=== PATIENT | male | born 1950 ===

== ENCOUNTER 2017-01-06 13:29 | Emergency (ER) | payer MEDICARE ==
[2017-01-06 13:32] VITALS: BP 135/85; PULSE 86; RESP 18; TEMP 98.4; O2SAT 99
== END 2017-01-06 13:38 | disposition left against medical advice (07) ==
LOC: C.ER 13:29
DX: R03.0 Elevated blood-pressure reading, without diagnosis of hypertension (principal); Z02.9 Encounter for administrative examinations, unspecified

== ENCOUNTER 2017-06-13 07:55 | Inpatient (IN) | payer MEDICARE ==
--- NOTE | 2017-06-13 08:30 | C.PDOC ---
History Of Present Illness 66-YEAR-OLD MALE, PRESENTS TO THE EMERGENCY DEPARTMENT WITH COMPLAINTS OF worsening R FOOT PAIN, REDNESS X 3 WEEKS. DENIES TRAUMA. NEW ONSET PAIN YEST. INTERMIT SUBJ FEVER. NO PRIOR PMD, PODIATRY EVAL FOR SAME. NO ABX FOR CURRENT SX EXAM NAD SKIN +BLISTER CALLUS, CLOSED W UNDERLYING BLOOD ?PURULENT BENEATH. +CELLULITIS DORSAL R FOOT W LYMPHANGITIS ANT R CALF. NO FLUCTUANCE EXT R FOOT MIN EDEMA NONPITTING TOP. NONTEND +CAP REFILL REMAINDER NEG Time Seen by Provider: 06/13/17 08:18 Chief Complaint (Nursing): Abnormal Skin Integrity History Per: Patient History/Exam Limitations: no limitations Past Medical History Reviewed: Historical Data, Nursing Documentation, Vital Signs Vital Signs: Last Vital Signs Temp 97.9 F 06/13/17 08:03 Pulse 80 06/13/17 08:03 Resp 18 06/13/17 08:03 BP 166/101 H 06/13/17 08:03 Pulse Ox 99 06/13/17 09:34 - Medical History PMH: CAD, Diabetes, HTN, Hypercholesterolemia - [facility] TETANUS TOXOID ADMINIST (06/06/13) Family History: States: No Known Family Hx - Social History Hx Tobacco Use: No Hx Alcohol Use: No Hx Substance Use: No - Immunization History Hx Tetanus Toxoid Vaccination: No Hx Influenza Vaccination: No Hx Pneumococcal Vaccination: No Review Of Systems Except As Marked, All Systems Reviewed And Found Negative. Constitutional: Positive for: Fever Respiratory: Negative for: Cough, Shortness of Breath Musculoskeletal: Positive for: Foot Pain (REDNESS) Skin: Negative for: Rash Physical Exam - Physical Exam Appears: Non-toxic, No Acute Distress Skin: Other (+BLISTER CALLUS, CLOSED W UNDERLYING BLOOD ?PURULENT BENEATH. + CELLULITIS DORSAL R FOOT W LYMPHANGITIS ANT R CALF. NO FLUCTUANCE) Nose: Normal Oral Mucosa: Moist Lips: Normal Appearing Neck: Normal ROM Cardiovascular: Rhythm Regular, No Murmur Respiratory: Normal Breath Sounds, No Accessory Muscle Use Extremity: Capillary Refill, Other (R FOOT MIN EDEMA NONPITTING TOP. NONTEND) Neurological/Psych: Oriented x3 ED Course And Treatment - Laboratory Results Result Diagrams: 06/13/17 08:54 06/13/17 08:54 O2 Sat by Pulse Oximetry: 99 Pulse Ox Interpretation: Normal - Other Rad R FOOT X-Ray: Interpreted by Me (+FA FOREFOOT. NO FX, FB) Progress - Re-Evaluation Re-evaluation Note: 06/13/17 08:32 D/W DR ANGUIANO PODIATRY RESIDENT: WILL EVAL IN ER 06/13/17 10:46 SP I&D PODIATRY +PURULENT OUTPUT. CX SENT. RECOMMENDS VANCOMYCIN, ZOSYN AND ADMIT. PT AGREES W ADMISSION. DR SANCHEZ PODIATRY TO CONSULT. 06/13/17 10:52 D/W DR MATHIAS C/F DR LINDO WILL ADMIT - Data Reviewed Data Reviewed: Lab, Diagnostic imaging, EKG, Old records - Continuity of Care Discussed patient case with:: Covering for PMD Discussed pt. case with showroom consultant/specialty: Podiatry Disposition Counseled Patient/Family Regarding: Studies Performed, Diagnosis, Need For Followup - Disposition Disposition: HOSPITALIZED Disposition Time: 10:53 Condition: SERIOUS Forms: [facility] (Persian) - POA Present On Arrival: Poor Glycemic Control - Clinical Impression Clinical Impression: Foot ulcer due to secondary DM, Foot abscess, Cellulitis - Scribe Statement Alexander Pearl All medical record entries made by the Scribe were at my direction and personally dictated by me. I have reviewed the chart and agree that the record accurately reflects my personal performance of the history, physical exam, medical decision making, and the department course for this patient. I have also personally directed, reviewed, and agree with the discharge instructions and disposition. Decision To Admit - Pt Status Changed To: Hospital Disposition Of: Inpatient - Admit Certification Admit to Inpatient:: After my assessment, the patient will require hospitalization for at least two midnights. This is because of the severity of symptoms shown, intensity of services needed, and/or the medical risk in this patient being treated as an outpatient. - InPatient: Physician Admission Certification: I certify that this patient requires 2 or more midnights of care for the following reason:: SEE NOTE - . Bed Request Type: Regular Admitting Physician: Richy Linder Patient Diagnosis: Foot ulcer due to secondary DM, Foot abscess, Cellulitis
[2017-06-13] MEDS ORDERED: ceFAZolin IV 1 gm in Dextrose 1 GM/50 ML BAG IVPB STA (08:39)
[2017-06-13 08:56] LABS: BASO # 0.1 K/uL (0.0-0.2); BASO % 0.7 % (0.0-2.0); EOS # 0.1 K/uL (0.0-0.7); EOS % 1.1 % (0.0-4.0); HEMATOCRIT 39.9 % (35.0-51.0); LYMPH # 2.2 K/uL (1.0-4.3); LYMPH % 20.4 % (20.0-40.0); MEAN CORPUSCULAR HGB CONC 34.1 g/dL (33.0-37.0); MEAN PLATELET VOLUME 9.2 fL (7.2-11.7); MONO # 1.2 K/uL (0.0-0.8); MONO % 11.4 % (0.0-10.0); RED CELL DISTRIBUTION WIDTH 13.5 % (11.5-14.5); WHITE BLOOD COUNT 10.5 K/uL (4.8-10.8)
[2017-06-13 08:58] LABS: MEAN CELL VOLUME 90.9 fL (80.0-94.0)
[2017-06-13] MEDS ORDERED: ceFAZolin 1 gm FROZEN Premix 1 GM/50 ML ML IVPB ONE (09:04)
[2017-06-13 09:06] LABS: CHLORIDE 102 mmol/L (98-107); POTASSIUM 4.4 mmol/L (3.6-5.2); SODIUM 138 mmol/L (132-148)
[2017-06-13 09:09] LABS: BLOOD UREA NITROGEN 14 mg/dL (9-20); CARBON DIOXIDE 25 mmol/L (22-30); GFR AFRICAN-AMERICAN > 60
[2017-06-13 09:10] LABS: CALCIUM 8.6 mg/dl (8.6-10.4); GLUCOSE,RANDOM 159 mg/dL (75-110)
[2017-06-13] MEDS ORDERED: Bacitracin 500 Units/gm Oint Foilpak UD ONE ×2 (10:51)
[2017-06-13] MEDS ORDERED: Piperacillin/Tazobact 3.375 gm 100 ML IV STA (10:53)
--- NOTE | 2017-06-13 11:07 | CP.PCM.CON ---
History of Present Illness - History of Present Illness History of Present Illness: 66 y/o male with PMHx of DM, HTN, Hypercholestrolemia seen at bedside in ED for right plantar foot redness, and swelling. Patient states that he has had a blister on the bottom of his foot for 3 weeks now but just yesterday he noticed redness and swelling getting worst. Patient also agrees to having a little pain to the right foot. Patient states that he has been having fevers on and off for the past week. Patient denies of any recent N/V/SOB/CP today. Patient states that he feels numbness in the bottom of his foot and at times feels as if his feet are asleep. Patient agrees to having tingling and burning in his feet every now and then. Patient denies of having a lease attendant. Patient states that he has not seen his PCP doctor about 2 months ago but does not see him often. Patient denies of any other pedal complains at this time. PMHx: DM, HTN, Hypercholestrolemia PSHx: Heart surgery Allergies: N.K.D.A SHx: Denies smoking, EtOH intake or illicit drug usage Review of Systems - Cardiovascular Cardiovascular: As Per HPI Past Patient History - Infectious Disease Hx of Infectious Diseases: None - Past Social History Smoking Status: Never Smoked - CARDIAC Hx Hypercholesterolemia: Yes Hx Hypertension: Yes - ENDOCRINE/METABOLIC Hx Endocrine Disorders: Yes Hx Diabetes Mellitus Type 1: Yes - PSYCHIATRIC Hx Substance Use: No - SURGICAL HISTORY Hx Surgeries: Yes Hx Cardiac Catheterization: Yes - ANESTHESIA Hx Anesthesia: Yes Hx Anesthesia Reactions: No Hx Malignant Hyperthermia: No Meds Allergies/Adverse Reactions: Allergies Allergy/AdvReac Type Severity Reaction Status Date / Time No Known Allergies Allergy Verified 01/06/17 13:34 - Medications Medications: Current Medications Piperacillin Sod/Tazobactam Sod (Zosyn 3.375 In Ns 100ml) 100 mls @ 200 mls/hr IV STAT STA Stop: 06/13/17 11:22 Vancomycin HCl (Vancomycin 1gm In Normal Saline Addvantage) 250 mls @ 166.667 mls/hr IV STAT MATT Physical Exam - Constitutional Appears: Well, Non-toxic, No Acute Distress - Extremities Exam Additional comments: Bilateral LE exam: VASC: DP/PT pulses are intact 2/4 bilaterally, Cap Refill time: < 3 sec to all digits, Temp gradient: warm to cool on the left and warm to warm on the right from proximal to distal, minimal non-pitting edema noted on the right foot DERM: roofed hematogenous bullae extending proximal to 1st interspace to midfoot level with hyperkeratotic lesion in the center, surrounding erythema noted on the planter medial aspect of the foot extending along the course of the TA tendon to the distal 1/3rd of the leg, mild fluctuance noted on the bullae site, no open lesions, no active drainage, no malodor NEURO: Protective sensation grossly diminished ORTHO: minimal tenderness on palpation of the plantar bullae on the right foot - Neurological Exam Neurological exam: Alert, Oriented x3 - Psychiatric Exam Psychiatric exam: Normal Affect, Normal Mood Results - Vital Signs Recent Vital Signs: Last Vital Signs Temp 97.9 F 06/13/17 08:03 Pulse 80 06/13/17 08:03 Resp 18 06/13/17 08:03 BP 166/101 H 06/13/17 08:03 Pulse Ox 99 06/13/17 10:53 - Labs Result Diagrams: 06/13/17 08:54 06/13/17 08:54 Labs: Laboratory Results - last 24 hr 06/13/17 06/13/17 08:54 08:54 WBC 10.5 RBC 4.39 L Hgb 13.6 Hct 39.9 MCV 90.9 D MCH 31.0 MCHC 34.1 RDW 13.5 Plt Count 172 MPV 9.2 Neut % (Auto) 66.4 Lymph % (Auto) 20.4 Woodruff % (Auto) 11.4 H Eos % (Auto) 1.1 Baso % (Auto) 0.7 Neut # 7.0 Lymph # 2.2 Woodruff # 1.2 H Eos # 0.1 Baso # 0.1 Sodium 138 Potassium 4.4 Chloride 102 Carbon Dioxide 25 Anion Gap 16 BUN 14 Creatinine 0.8 Est GFR ( Amer) > 60 Est GFR (Non-Af Amer) > 60 Random Glucose 159 H Calcium 8.6 Assessment & Plan - Assessment and Plan (Free Text) Assessment: 66 y/o male seen at bedside in ED for 1). de-roofed plantar ulcer nava grade 1 2). cellulitis extending proximally on the right leg Plan: Patient seen and evaluated at bedside in ED Patient discussed in details with attending Dr. Cassidy Labs and vitals reviewed (afebrile, WBC @ 10.5) X-rays ordered/reviewed: -diffuse radiolucency noted in plantar soft tissue at the ball of the right foot indicating soft tissue emphysema, no shannan abnormalities noted, joint appear to be in proper alignment Bedside I&D performed: - approximately 7cc of purulent/sanguineous drainage noted from the bullae site, malodor appreciated during this procedure Patient tolerated the procedure well Superficial cultures and after the debridement, deep cultures taken Patient received 1 gm of ancef while in the ED Patient to be admitted for IV abx - patient currently placed on vanc/zosyn The plan discussed with the ED attending Patient educated to the importance of staying in the hospital to receive IV antibiotics Patient and his demonstrated verbal understanding Thank you for the podiatry consult and letting us take part in patient care Podiatry will follow patient while-in house - Date & Time Date: 06/13/17 Time: 11:25
[2017-06-13] MEDS ORDERED: Piperacillin/Tazobact 3.375 GM in Sodium Chloride 100 ML IVPB SCH (11:15)
[2017-06-13] MEDS ORDERED: Vancomycin 1 GM 1 GM/250 ML BAG IVPB ONE (11:17)
[2017-06-13] MEDS ORDERED: Piperacillin/Tazobact 3.375 gm 100 ML IVPB ONE (11:17)
[2017-06-13] MEDS: (Novolin R) Insulin Human Regular 100 units/ml vial SC SCH ×4 (11:59→22:15)
[2017-06-13] MEDS ORDERED: Vancomycin 1 GM 1 GM/250 ML BAG IV ONE (12:00)
[2017-06-13] MEDS ORDERED: (Novolin R) Insulin Human Regular 100 units/ml vial ONE (12:20)
[2017-06-13] MEDS: Piperacillin/Tazobact 3.375 GM in Sodium Chloride 100 ML IVPB SCH ×4 (13:59→22:35)
--- NOTE | 2017-06-13 14:46 | CP.PCM.CON ---
History of Present Illness - History of Present Illness History of Present Illness: 66 y/o male with PMHx of DM, HTN, Hypercholestrolemia seen at bedside in ED for right plantar foot redness, and swelling. Patient states that he has had a blister on the bottom of his foot for 3 weeks now but just yesterday he noticed redness and swelling getting worst. Patient also agrees to having a little pain to the right foot. Patient states that he has been having fevers on and off for the past week. DID NOT SEE PCP ADMITTED FOR IV RX AWAIT MRI X-rays ordered/reviewed: -diffuse radiolucency noted in plantar soft tissue at the ball of the right foot indicating soft tissue emphysema, no shannan abnormalities noted, joint appear to be in proper alignment PMHx: DM, HTN, Hypercholestrolemia PSHx: Heart surgery Allergies: N.K.D.A SHx: Denies smoking, EtOH intake or illicit drug usage Review of Systems - Constitutional Constitutional: As Per HPI - EENT Eyes: absent: As Per HPI, Blind Spots, Blurred Vision, Change in Vision, Decreased Night Vision, Diplopia, Discharge, Dry Eye, Exophthalmos, Floaters, Irritation, Itchy Eyes, Loss of Peripheral Vision, Pain, Photophobia, Requires Corrective Lenses, Sees Flashes, Spots in Vision, Tunnel Vision, Other Visual Disturbances, Loss of Vision, Other Nose/Mouth/Throat: absent: As Per HPI, Epistaxis, Nasal Congestion, Nasal Discharge, Nasal Obstruction, Nasal Trauma, Nose Pain, Post Nasal Drip, Sinus Pain, Sinus Pressure, Bleeding Gums, Change in Voice, Dental Pain, Dry Mouth, Dysphagia, Halitosis, Hoarsness, Lip Swelling, Mouth Lesions, Mouth Pain, Odynophagia, Sore Throat, Throat Swelling, Tongue Swelling, Facial Pain, Neck Pain, Neck Mass, Other - Cardiovascular Cardiovascular: absent: As Per HPI, Acrocyanosis, Chest Pain, Chest Pain at Rest , Chest Pain with Activity, Claudication, Diaphoresis, Dyspnea, Dyspnea on Exertion, Edema, Irregular Heart Rhythm, Pain Radiating to Arm/Neck/Jaw, Leg Edema, Leg Ulcers, Lightheadedness, Orthopnea, Palpitations, Paroxysmal Nocturnal Dyspnea, Pedal Edema, Radiating Pain, Rapid Heart Rate, Slow Heart Rate, Syncope, Other - Respiratory Respiratory: absent: As Per HPI, Cough, Dyspnea, Hemoptysis, Dyspnea on Exertion , Wheezing, Snoring, Stridor, Pain on Inspiration, Chest Congestion, Excessive Mucous Production, Change in Mucous Color, Pain with Coughing, Other - Gastrointestinal Gastrointestinal: absent: As Per HPI, Abdominal Pain, Belching, Bloating, Change in Bowel Habits, Change in Stool Character, Coffee Ground Emesis, Constipation, Cramping, Diarrhea, Dyspepsia, Dysphagia, Early Satiety, Excessive Flatus, Fecal Incontinence, Heartburn, Hematemesis, Hematochezia, Loose Stools, Melena, Nausea, Odynophagia, Temesmus, Vomiting, Other - Genitourinary Genitourinary: absent: As Per HPI, Change in Urinary Stream, Difficulty Urinating, Dysuria, Flank Pain, Hematuria, Pyuria, Nocturia, Urinary Incontinence, Urinary Frequency, Urinary Hesitance, Urinary Urgency, Voiding Freq/Small Amts, Freq UTI, Hx Renal/Bladder Calculi, Hx /Renal Surgery, Bladder Distension, Other - Musculoskeletal Musculoskeletal: As Per HPI - Integumentary Integumentary: As Per HPI, Skin Pain, Wounds - Neurological Neurological: absent: As Per HPI, Abnormal Gait, Abnormal Hearing, Abnormal Movements, Abnormal Speech, Behavioral Changes, Burning Sensations, Confusion, Convulsions, Disequilibrium, Dizziness, Numbness, Focal Weakness, Frequent Falls , Headaches, Lack of Coordination, Loss of Vision, Memory Loss, Paresthesias, Radicular Pain, Restless Legs, Sensory Deficit, Syncope, Tingling, Tremor, Vertigo, Weakness, Other Visual Disturbances, Other - Psychiatric Psychiatric: absent: As Per HPI, Abnormal Sleep Pattern, Anhedonia, Anxiety, Auditory Hallucinations, Behavioral Changes, Change in Appetite, Change in Libido, Confusion, Depression, Difficulty Concentrating, Hallucinations, Homicidal Ideation, Hopelessness, Irritability, Memory Loss, Mood Swings, Panic Attacks, Paranoia, Suicidal Ideation, Visual Hallucinations, Tactile Hallucinations, Other - Endocrine Endocrine: absent: As Per HPI, Change in Body Appearance, Change in Libido, Cold Intolorance, Deepening of Voice, Excessive Sweating, Fatigue, Flushing, Heat Intolorance, Increase in Ring/Shoe/Hat Size, Palpitations, Polydipsia, Polyphagia, Polyuria, Other - Hematologic/Lymphatic Hematologic: absent: As Per HPI, Easy Bleeding, Easy Bruising, Lymphadenopathy, Other Past Patient History - Infectious Disease Hx of Infectious Diseases: None - Past Social History Smoking Status: Never Smoked - CARDIAC Hx Hypercholesterolemia: Yes Hx Hypertension: Yes - ENDOCRINE/METABOLIC Hx Endocrine Disorders: Yes Hx Diabetes Mellitus Type 1: Yes - PSYCHIATRIC Hx Substance Use: No - SURGICAL HISTORY Hx Surgeries: Yes Hx Cardiac Catheterization: Yes - ANESTHESIA Hx Anesthesia: Yes Hx Anesthesia Reactions: No Hx Malignant Hyperthermia: No Meds Allergies/Adverse Reactions: Allergies Allergy/AdvReac Type Severity Reaction Status Date / Time No Known Allergies Allergy Verified 01/06/17 13:34 - Medications Medications: Current Medications Ascorbic Acid (Vitamin C 500 Mg Tab) 500 mg PO TID [facility] Last Admin: 06/13/17 14:20 Dose: 500 mg Famotidine (Pepcid) 20 mg IVP DAILY [facility] Vancomycin HCl 1 gm/ Sodium (Chloride) 250 mls @ 166.7 mls/hr IVPB DAILY [facility] Piperacillin Sod/Tazobactam (Sod 3.375 gm/ Sodium Chloride) 100 mls @ 200 mls/ hr IVPB Q8 [facility] Last Admin: 06/13/17 14:07 Dose: Not Given Piperacillin Sod/Tazobactam (Sod 3.375 gm/ Sodium Chloride) 100 mls @ 200 mls/ hr IVPB Q8 [facility] Last Admin: 06/13/17 13:59 Dose: Not Given Insulin Human Regular (Novolin R) 0 unit SC ACHS [facility] PRN Reason: Protocol Last Admin: 06/13/17 12:20 Dose: 2 unit Lisinopril (Zestril) 10 mg PO Q12 [facility] Sitagliptin Phosphate (Januvia) 50 mg PO DAILY [facility] Zinc Sulfate (Zinc Sulfate 220 Mg Cap) 220 mg PO DAILY [facility] Physical Exam - Constitutional Appears: Non-toxic, Chronically Ill - Head Exam Head Exam: NORMOCEPHALIC - Eye Exam Eye Exam: absent: Scleral icterus - ENT Exam ENT Exam: Mucous Membranes Dry, Normal External Ear Exam - Neck Exam Neck exam: Negative for: Lymphadenopathy - Respiratory Exam Respiratory Exam: Decreased Breath Sounds - Cardiovascular Exam Cardiovascular Exam: REGULAR RHYTHM - GI/Abdominal Exam GI & Abdominal Exam: Diminished Bowel Sounds, Soft. absent: Tenderness - Rectal Exam Rectal Exam: Deferred - Exam Exam: NORMAL INSPECTION - Extremities Exam Extremities exam: Positive for: pedal edema, tenderness, pedal pulses present. Negative for: calf tenderness - Back Exam Back exam: absent: CVA tenderness (L), CVA tenderness (R) - Neurological Exam Neurological exam: Alert, CN II-XII Intact, Oriented x3, Reflexes Normal - Psychiatric Exam Psychiatric exam: Normal Mood - Skin Skin Exam: Dry Results - Vital Signs Recent Vital Signs: Last Vital Signs Temp 98.8 F 06/13/17 12:39 Pulse 78 06/13/17 12:39 Resp 20 06/13/17 12:39 BP 135/86 06/13/17 12:39 Pulse Ox 97 06/13/17 12:39 - Labs Result Diagrams: 06/13/17 08:54 06/13/17 08:54 Labs: Laboratory Results - last 24 hr 06/13/17 12:11 POC Glucose (mg/dL) 230 H Assessment & Plan (1) Cellulitis Status: Acute (2) Foot abscess Status: Acute (3) Foot ulcer due to secondary DM Status: Acute - Assessment and Plan (Free Text) Assessment: CONSIDER MRI MAY NEED OR / DEBRIDEMENT AWAIT CULTURES
--- NOTE | 2017-06-13 15:12 | RAD ---
PROCEDURE: CHEST RADIOGRAPH, 1 VIEW HISTORY: SOB COMPARISON: 10/26/2014 FINDINGS: LUNGS: Clear. PLEURA: No pneumothorax or pleural fluid seen. CARDIOVASCULAR: No radiographic findings to suggest acute or significant cardiovascular disease. OSSEOUS STRUCTURES: No significant abnormalities. VISUALIZED UPPER ABDOMEN: Normal. OTHER FINDINGS: None. IMPRESSION: No active disease. No acute/significant interval changes. Concordant results with the preliminary interpretation rendered by the emergency department physician procedure.
--- NOTE | 2017-06-13 17:15 | RAD ---
PROCEDURE: Right Foot Radiographs. HISTORY: FOOT ULCER COMPARISON: None. FINDINGS: BONES: No fracture. Small osteochondroma of the 5th distal phalanx. No osseous erosion or periosteal reaction. JOINTS: Normal. SOFT TISSUES: Normal. OTHER FINDINGS: None. IMPRESSION: No plain radiographic evidence of osteomyelitis.
[2017-06-14] MEDS: Piperacillin/Tazobact 3.375 GM in Sodium Chloride 100 ML IVPB SCH ×3 (05:29→21:14)
[2017-06-14] MEDS: (Novolin R) Insulin Human Regular 100 units/ml vial SC SCH ×4 (08:02→21:15)
[2017-06-14] MEDS: Silver Sulfadiazine 1% Cream (20 gm) TOP SCH (09:19)
--- NOTE | 2017-06-14 12:31 | CP.PCM.PN ---
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 iv rx Objective - Vital Signs/Intake and Output Vital Signs (last 24 hours): Temp Pulse Resp BP Pulse Ox 99.1 F 83 20 162/91 H 96 06/14/17 08:00 06/14/17 08:00 06/14/17 08:00 06/14/17 08:00 06/14/17 08:00 Intake and Output: 06/14/17 06/14/17 06:59 18:59 Intake Total 340 Balance 340 - Medications Medications: Current Medications Ascorbic Acid (Vitamin C 500 Mg Tab) 500 mg PO TID [facility] Last Admin: 06/14/17 09:08 Dose: 500 mg Famotidine (Pepcid) 20 mg IVP DAILY [facility] Last Admin: 06/14/17 09:08 Dose: 20 mg Heparin Sodium (Porcine) (Heparin) 5,000 units SC Q12 [facility] Last Admin: 06/14/17 09:18 Dose: 5,000 units Vancomycin HCl 1 gm/ Sodium (Chloride) 250 mls @ 166.7 mls/hr IVPB DAILY [facility] Last Admin: 06/14/17 09:18 Dose: 166.7 mls/hr Piperacillin Sod/Tazobactam (Sod 3.375 gm/ Sodium Chloride) 100 mls @ 200 mls/ hr IVPB Q8 [facility] Last Admin: 06/14/17 05:29 Dose: 200 mls/hr Insulin Human Regular (Novolin R) 0 unit SC ACHS [facility] PRN Reason: Protocol Last Admin: 06/14/17 08:02 Dose: 1 unit Lisinopril (Zestril) 10 mg PO Q12 [facility] Last Admin: 06/14/17 09:07 Dose: 10 mg Pneumococcal Polyvalent Vaccine (Pneumovax 23 Vaccine) 0.5 ml IM .ONCE ONE Stop: 06/15/17 10:01 Silver Sulfadiazine (Silvadene 1% 20 Gm) 0.02 ea TOP QAM [facility] Last Admin: 06/14/17 09:19 Dose: 1 applic Sitagliptin Phosphate (Januvia) 50 mg PO DAILY [facility] Last Admin: 06/14/17 09:18 Dose: 50 mg Zinc Sulfate (Zinc Sulfate 220 Mg Cap) 220 mg PO DAILY [facility] Last Admin: 06/14/17 09:18 Dose: 220 mg - Constitutional Appears: Non-toxic, Chronically Ill - Head Exam Head Exam: NORMOCEPHALIC - Eye Exam Eye Exam: PERRL - ENT Exam ENT Exam: Mucous Membranes Dry - Neck Exam Neck Exam: absent: Lymphadenopathy - Respiratory Exam Respiratory Exam: Decreased Breath Sounds - Cardiovascular Exam Cardiovascular Exam: REGULAR RHYTHM - GI/Abdominal Exam GI & Abdominal Exam: Distended, Soft Assessment and Plan (1) Cellulitis Status: Acute (2) Foot abscess Status: Acute (3) Foot ulcer due to secondary DM Status: Acute
--- NOTE | 2017-06-14 13:19 | CP.PCM.PN ---
Subjective - Date & Time of Evaluation Date of Evaluation: 06/14/17 Time of Evaluation: 11:45 - Subjective Subjective: Podiatry Progress Note- Dr. Cassidy 66 yo diabetic male patient seen at bedside with Dr. Cassidy present for followup of right foot ulceration. Pt seen resting upright in bed at time of visit. Says he is feeling much better today. Denies any pain or discomfort to the right foot or leg at this time. Denies f/n/v/c/sob/cp. Denies any other complaints today. Objective - Vital Signs/Intake and Output Vital Signs (last 24 hours): Temp Pulse Resp BP Pulse Ox 99.1 F 83 20 162/91 H 96 06/14/17 08:00 06/14/17 08:00 06/14/17 08:00 06/14/17 08:00 06/14/17 08:00 Intake and Output: 06/14/17 06/14/17 06:59 18:59 Intake Total 340 Balance 340 - Medications Medications: Current Medications Ascorbic Acid (Vitamin C 500 Mg Tab) 500 mg PO TID [facility] Last Admin: 06/14/17 13:13 Dose: 500 mg Famotidine (Pepcid) 20 mg IVP DAILY [facility] Last Admin: 06/14/17 09:08 Dose: 20 mg Heparin Sodium (Porcine) (Heparin) 5,000 units SC Q12 [facility] Last Admin: 06/14/17 09:18 Dose: 5,000 units Vancomycin HCl 1 gm/ Sodium (Chloride) 250 mls @ 166.7 mls/hr IVPB DAILY [facility] Last Admin: 06/14/17 09:18 Dose: 166.7 mls/hr Piperacillin Sod/Tazobactam (Sod 3.375 gm/ Sodium Chloride) 100 mls @ 200 mls/ hr IVPB Q8 [facility] Last Admin: 06/14/17 13:13 Dose: 200 mls/hr Insulin Human Regular (Novolin R) 0 unit SC ACHS [facility] PRN Reason: Protocol Last Admin: 06/14/17 12:35 Dose: 4 unit Lisinopril (Zestril) 10 mg PO Q12 [facility] Last Admin: 06/14/17 09:07 Dose: 10 mg Pneumococcal Polyvalent Vaccine (Pneumovax 23 Vaccine) 0.5 ml IM .ONCE ONE Stop: 06/15/17 10:01 Silver Sulfadiazine (Silvadene 1% 20 Gm) 0.02 ea TOP QAM [facility] Last Admin: 06/14/17 09:19 Dose: 1 applic Sitagliptin Phosphate (Januvia) 50 mg PO DAILY [facility] Last Admin: 06/14/17 09:18 Dose: 50 mg Zinc Sulfate (Zinc Sulfate 220 Mg Cap) 220 mg PO DAILY [facility] Last Admin: 06/14/17 09:18 Dose: 220 mg - Constitutional Appears: Well, Non-toxic, No Acute Distress - Extremities Exam Extremities Exam: absent: Calf Tenderness Additional comments: Right lower extremity exam: Dressing to right foot appears c/d/i VASC: DP/PT pulses are intact 2/4, Cap Refill time: < 3 sec to all digits, skin temp runs warm to cool from proximal to distal, moderate non-pitting edema noted to dorsal aspect of foot DERM: superficial ulceration is noted to plantar aspect of right forefoot extending proximal to 1st interspace from midfoot, erythema has resolved, wound bed appears 100% granular, neg probe to bone, neg undermining, neg malodor NEURO: Protective sensation grossly diminished - Neurological Exam Neurological Exam: Alert, Awake, Oriented x3 - Psychiatric Exam Psychiatric exam: Normal Affect, Normal Mood Assessment and Plan - Assessment and Plan (Free Text) Assessment: 66 y/o male pt with ulceration of right plantar foot with resolved lower extremity cellulitis both 2/2 to diabetic foot infection. Plan: Pt S&E at bedside with attending Dr. Cassidy present Chart, labs and vitals reviewed: afebrile, WBC 10.5 Right foot wound cx: + beta hemolytic strep A (moderate growth) Right foot x-ray: diffuse radiolucency noted in plantar soft tissue at the ball of the right foot indicating soft tissue emphysema, small osteochondroma on 5th distal phalanx, no OM Right foot MRI ordered ID on consult (Dr. Apple): abx per ID Ulceration debrided with #15 blade to point of healthy bleeding, dressing applied with silvadene, DSD Pt is to wear surgical shoe at all times with weightbearing. Pt is stable from podiatry standpoint and clinically much improved on IV abx F/u as outpatient in [facility] Podiatry clinic with Dr. Cassidy. Will follow while in house
--- NOTE | 2017-06-14 19:58 | CP.PCM.HP ---
History of Present Illness - History of Present Illness History of Present Illness: Chief complaint: Right leg ulcer. History present illness: 66-year-old male with history diabetes, hypertension, diabetes is poorly controlled, came to the emergency room with the right leg ulcer. Patient had some foreign body injury to the right foot, 3 weeks ago. He started having some redness, and he was cleaning up with a alcohol in the house. He started having more swelling, and started having some pus. He did not have any pain much. But later he started having increasing pain over the leg, and also in the lower part of the ankle region. There was also redness noted. He started having some fever chills. Shortly came into the emergency room. Patient did not take any medications. His blood sugar is also not controlled well. Patient is being seen by Dr. 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 Past medical history: Diabetes, hypertension, hypercholesteremia, CAD. Allergy no known drug allergy. Personal history nonsmoker, nonalcoholic patient is currently working full-time Review of system noted from the chart. On examination: On examination: HEENT PERRLA, neck supple No thyromegaly was noted and no cervical adenopathy noted Chest bilateral good air entry, no wheezing or rales noted CVS regular heart sound, no murmur Abdomen soft and no organomegaly Peripheral pulses is normal. Patient is having in the base of the foot, especially middle toes base, skin abrasion noted, redness noted, and also present. Labs reviewed Elevated WBC noted Assessment and recommendation: 66-year-old male with history diabetes, hypertension, hypercholesteremia, admitted with right foot cellulitis, and also. Diabetic foot, most likely. Antibiotic advised. Podiatry evaluation he is disease evaluation. MRI. Further investigation. Will continue the current treatment. 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 oriented x3 no functional neurological deficit Present on Admission - Present on Admission Any Indicators Present on Admission: No History of DVT/PE: No History of Uncontrolled Diabetes: No Urinary Catheter: No Decubitus Ulcer Present: No Past Patient History - Infectious Disease Hx of Infectious Diseases: None - Past Medical History & Family History Past Medical History?: Yes - Past Social History Smoking Status: Never Smoked - CARDIAC Hx Cardiac Disorders: Yes (CARDIAC SURGERY) Hx Hypercholesterolemia: Yes Hx Hypertension: Yes - ENDOCRINE/METABOLIC Hx Diabetes Mellitus Type 1: Yes - MUSCULOSKELETAL/RHEUMATOLOGICAL Hx Falls: No - PSYCHIATRIC Hx Substance Use: No - SURGICAL HISTORY Hx Surgeries: Yes Hx Cardiac Catheterization: Yes - ANESTHESIA Hx Anesthesia: Yes Hx Anesthesia Reactions: No Hx Malignant Hyperthermia: No Meds Home Medications: Home Medication List Medication Instructions Recorded Confirmed Type Amoxicillin/Clavulanate [Augmentin 1 tab PO BID #20 tab 06/15/17 Rx 875 MG-125 MG] Allergies/Adverse Reactions: Allergies Allergy/AdvReac Type Severity Reaction Status Date / Time No Known Allergies Allergy Verified 01/06/17 13:34 Results - Vital Signs Recent Vital Signs: Last Vital Signs Temp 97.9 F 06/14/17 15:00 Pulse 80 06/14/17 15:00 Resp 20 06/14/17 15:00 BP 164/94 H 06/14/17 15:00 Pulse Ox 96 06/14/17 15:00 - Labs Result Diagrams: 06/13/17 08:54 06/13/17 08:54 Labs: Laboratory Results - last 24 hr 06/13/17 06/14/17 06/14/17 21:38 07:24 12:07 POC Glucose (mg/dL) 157 H 179 H 307 H 06/14/17 16:57 POC Glucose (mg/dL) 229 H
--- NOTE | 2017-06-14 19:58 | CP.PCM.PN ---
Subjective - Date & Time of Evaluation Date of Evaluation: 06/14/17 Time of Evaluation: 19:58 - Subjective Subjective: Patient is doing well. No chest pain. On antibiotic. Awaiting for MRI of the right foot. If there is no osteomyelitis the patient Discharge after the MRI. Will discuss with infectious disease. Continue the current treatment Objective - Vital Signs/Intake and Output Vital Signs (last 24 hours): Temp Pulse Resp BP Pulse Ox 97.9 F 80 20 164/94 H 96 06/14/17 15:00 06/14/17 15:00 06/14/17 15:00 06/14/17 15:00 06/14/17 15:00 - Medications Medications: Current Medications Ascorbic Acid (Vitamin C 500 Mg Tab) 500 mg PO TID [facility] Last Admin: 06/14/17 17:58 Dose: 500 mg Famotidine (Pepcid) 20 mg IVP DAILY [facility] Last Admin: 06/14/17 09:08 Dose: 20 mg Heparin Sodium (Porcine) (Heparin) 5,000 units SC Q12 [facility] Last Admin: 06/14/17 09:18 Dose: 5,000 units Vancomycin HCl 1 gm/ Sodium (Chloride) 250 mls @ 166.7 mls/hr IVPB DAILY [facility] Last Admin: 06/14/17 09:18 Dose: 166.7 mls/hr Piperacillin Sod/Tazobactam (Sod 3.375 gm/ Sodium Chloride) 100 mls @ 200 mls/ hr IVPB Q8 [facility] Last Admin: 06/14/17 13:13 Dose: 200 mls/hr Insulin Human Regular (Novolin R) 0 unit SC ACHS [facility] PRN Reason: Protocol Last Admin: 06/14/17 18:01 Dose: 2 unit Lisinopril (Zestril) 10 mg PO Q12 [facility] Last Admin: 06/14/17 09:07 Dose: 10 mg Pneumococcal Polyvalent Vaccine (Pneumovax 23 Vaccine) 0.5 ml IM .ONCE ONE Stop: 06/15/17 10:01 Silver Sulfadiazine (Silvadene 1% 20 Gm) 0.02 ea TOP QAM [facility] Last Admin: 06/14/17 09:19 Dose: 1 applic Sitagliptin Phosphate (Januvia) 50 mg PO DAILY [facility] Last Admin: 06/14/17 09:18 Dose: 50 mg Zinc Sulfate (Zinc Sulfate 220 Mg Cap) 220 mg PO DAILY [facility] Last Admin: 06/14/17 09:18 Dose: 220 mg
[2017-06-15 01:29] VITALS: O2SAT 95
[2017-06-15] MEDS: Piperacillin/Tazobact 3.375 GM in Sodium Chloride 100 ML IVPB SCH ×2 (05:34→13:42)
[2017-06-15] MEDS: (Novolin R) Insulin Human Regular 100 units/ml vial SC SCH ×2 (07:30→12:28)
[2017-06-15] MEDS: Silver Sulfadiazine 1% Cream (20 gm) TOP SCH (10:00)
[2017-06-15] MEDS ORDERED: Pneumococcal 23-Valent Vaccine IM ONE (10:00)
--- NOTE | 2017-06-15 12:46 | MRI ---
PROCEDURE: MRI Right Foot HISTORY: Pain. COMPARISON: None available. TECHNIQUE: Multiecho multiplanar sequences were performed through the right foot without the use of intravenous contrast. FINDINGS: BONES: No fracture. Normal marrow signal. MUSCLES: Normal. SOFT TISSUES: Normal. LISFRANC LIGAMENT: Normal. PLANTAR PLATE: Normal. EXTENSOR TENDONS: Normal. FLEXOR TENDONS: Normal. OTHER FINDINGS: Extensive subcutaneous edema is noted along the dorsum of the foot. IMPRESSION: Extensive subcutaneous edema along the dorsum of the foot without evidence of fracture. Findings could represent a cellulitis though soft tissue contusion is also considered in the setting of trauma.
--- NOTE | 2017-06-15 15:13 | CP.PCM.PN ---
Subjective - Date & Time of Evaluation Date of Evaluation: 06/15/17 Time of Evaluation: 12:30 - Subjective Subjective: Podiatry Progress Note- Dr. Cassidy 66 yo diabetic male patient seen at bedside today for f/u right foot ulceration. Pt seen resting upright in bed at time of visit. Says he is feeling well overall today, denies any pain or discomfort to the foot denies. Denies f/n /v/c/sob/cp at this time. Objective - Vital Signs/Intake and Output Vital Signs (last 24 hours): Temp Pulse Resp BP Pulse Ox 98.6 F 84 22 159/118 H 95 06/15/17 09:08 06/15/17 13:51 06/15/17 09:08 06/15/17 13:51 06/15/17 09:08 Intake and Output: 06/15/17 06/15/17 06:59 18:59 Intake Total 700 700 Balance 700 700 - Medications Medications: Current Medications Ascorbic Acid (Vitamin C 500 Mg Tab) 500 mg PO TID [facility] Last Admin: 06/15/17 13:42 Dose: 500 mg Famotidine (Pepcid) 20 mg IVP DAILY [facility] Last Admin: 06/15/17 09:57 Dose: 20 mg Heparin Sodium (Porcine) (Heparin) 5,000 units SC Q12 [facility] Last Admin: 06/15/17 09:56 Dose: 5,000 units Vancomycin HCl 1 gm/ Sodium (Chloride) 250 mls @ 166.7 mls/hr IVPB DAILY [facility] Last Admin: 06/15/17 09:57 Dose: 166.7 mls/hr Piperacillin Sod/Tazobactam (Sod 3.375 gm/ Sodium Chloride) 100 mls @ 200 mls/ hr IVPB Q8 [facility] Last Admin: 06/15/17 13:42 Dose: 200 mls/hr Insulin Human Regular (Novolin R) 0 unit SC ACHS [facility] PRN Reason: Protocol Last Admin: 06/15/17 12:28 Dose: 5 unit Lisinopril (Zestril) 10 mg PO Q12 [facility] Last Admin: 06/15/17 09:56 Dose: 10 mg Silver Sulfadiazine (Silvadene 1% 20 Gm) 0.02 ea TOP QAM [facility] Last Admin: 06/15/17 10:00 Dose: 1 applic Sitagliptin Phosphate (Januvia) 50 mg PO DAILY [facility] Last Admin: 06/15/17 09:56 Dose: 50 mg Zinc Sulfate (Zinc Sulfate 220 Mg Cap) 220 mg PO DAILY [facility] Last Admin: 06/15/17 09:56 Dose: 220 mg - Constitutional Appears: Well, Non-toxic, No Acute Distress - Extremities Exam Extremities Exam: absent: Calf Tenderness Additional comments: Right lower extremity exam: Dressing to right foot appears c/d/i VASC: DP/PT pulses are intact 2/4, Cap Refill time: < 3 sec to all digits, skin temp runs warm to cool from proximal to distal, moderate non-pitting edema noted to dorsal aspect of foot DERM: superficial ulceration is noted to plantar aspect of right forefoot extending proximal to 1st interspace from midfoot, erythema has resolved, wound bed appears 100% granular, neg probe to bone, neg undermining, neg malodor NEURO: Protective sensation grossly diminished - Neurological Exam Neurological Exam: Alert, Awake, Oriented x3 - Psychiatric Exam Psychiatric exam: Normal Affect, Normal Mood Assessment and Plan - Assessment and Plan (Free Text) Assessment: 66 y/o male pt with ulceration of right plantar foot with resolved lower extremity cellulitis both 2/2 to diabetic foot infection. Plan: Pt S&E at bedside with attending Dr. Cassidy present Chart, labs and vitals reviewed: afebrile Right foot wound cx: + beta hemolytic strep A (moderate growth) Right foot x-ray: diffuse radiolucency noted in plantar soft tissue at the ball of the right foot indicating soft tissue emphysema, small osteochondroma on 5th distal phalanx, no OM Right foot MRI: negative for OM Nursing reapplied dressing with silvadene and DSD. Pt is to wear surgical shoe at all times with weightbearing. Stable per podiatry. f/u [facility] Podiatry clinic w/ Dr. Cassidy
--- NOTE | 2017-06-15 15:19 | VASCLAB ---
STUDY DESCRIPTION: HISTORY: Peripheral Vascular Disease PRIORS: None. TECHNIQUE: Pulse volume recording waveforms and segmental pressures of bilateral lower extremities at multiple levels were obtained. Ankle Brachial Indices (ABIs) were calculated. Report prepared by CLAIR Cespedes, RVT RIGHT LOWER EXTREMITY: * Brachial artery: Pressure - 164 mmHg. * High thigh: Pressure - 199 mmHg: Ratio - 1.21: PVR waveform - Pulsatile * Low thigh: Pressure - 216 mmHg: Ratio - 1.32 PVR waveform: Pulsatile * Calf: Pressure - 220 mmHg: Ratio - n/c PVR waveform: Pulsatile * Posterior tibial Artery: Pressure - 209 mmHg: Ratio - 1.27 PVR waveform: Pulsatile * Dorsalis pedis Artery: Pressure - 217 mmHg: Ratio - 1.32 PVR waveform: Pulsatile Ankle brachial index (AKIKO): 1.32 LEFT LOWER EXTREMITY: * Brachial artery: Pressure - 159 mmHg. * High thigh: Pressure - 213 mmHg: Ratio - 1.30: PVR waveform - Pulsatile * Low thigh: Pressure - 201 mmHg: Ratio - 1.23 PVR waveform: Pulsatile * Calf: Pressure - 214mmHg: Ratio - 1.30 PVR waveform: Pulsatile * Posterior tibial Artery: Pressure - 197 mmHg: Ratio - 1.20 PVR waveform: Pulsatile * Dorsalis pedis Artery: Pressure - 198 mmHg: Ratio - 1.21 PVR waveform: Pulsatile Ankle brachial index (AKIKO): 1.21 OTHER FINDINGS: IMPRESSION: Right: There was no evidence of hemodynamically significant arterial insufficiency in the right lower extremity. Left: There was no evidence of hemodynamically significant arterial insufficiency in the left lower extremity.
[2017-06-15 17:04] VITALS: BP 151/87; PULSE 72; RESP 20; TEMP 98.9
--- NOTE | 2017-06-15 17:33 | CP.PCM.PN ---
Subjective - Date & Time of Evaluation Date of Evaluation: 06/15/17 Time of Evaluation: 17:29 - Subjective Subjective: MRI NEG FOR OM. WOUND CX + FOR STREP AND CORYNE (SEE OFFICIAL REPORT); NO SENSITIVITIES WERE ORDERED WHEN THE CULTURE WAS COLLECTED. I DISCUSSED WITH DR. OLIVEIRA AND HE CLEARED PT TO GO HOME TODAY W RX FOR AUGMENTIN BID X10 DAYS. LEFT MESSAGE FOR DR. PRESCOTT REGARDING D/C. PT CLEARED FOR D/C HOME TODAY BY PODIATRY TEAM. RX AND ARRANGEMENTS MADE FOR HOME WOUND CARE AND VNA SERVICES GIVEN TO [facility]. PT TO F/U WITH DR. SANCHEZ AND DR. PRESCOTT OR PMD IN OFFICES WITHIN 1-2 WEEKS. PT IS EAGER TO BE D/C TODAY. VERBAL UNDERSTANDING OF ALL D/C INFORMATION AND RX. NO FURTHER ORDERS. Objective - Vital Signs/Intake and Output Vital Signs (last 24 hours): Temp Pulse Resp BP Pulse Ox 98.9 F 72 20 151/87 H 95 06/15/17 16:00 06/15/17 16:00 06/15/17 16:00 06/15/17 16:00 06/15/17 16:00 Intake and Output: 06/15/17 06/15/17 06:59 18:59 Intake Total 700 700 Balance 700 700 - Medications Medications: Current Medications Ascorbic Acid (Vitamin C 500 Mg Tab) 500 mg PO TID [facility] Last Admin: 06/15/17 13:42 Dose: 500 mg Famotidine (Pepcid) 20 mg IVP DAILY [facility] Last Admin: 06/15/17 09:57 Dose: 20 mg Heparin Sodium (Porcine) (Heparin) 5,000 units SC Q12 [facility] Last Admin: 06/15/17 09:56 Dose: 5,000 units Vancomycin HCl 1 gm/ Sodium (Chloride) 250 mls @ 166.7 mls/hr IVPB DAILY [facility] Last Admin: 06/15/17 09:57 Dose: 166.7 mls/hr Piperacillin Sod/Tazobactam (Sod 3.375 gm/ Sodium Chloride) 100 mls @ 200 mls/ hr IVPB Q8 [facility] Last Admin: 06/15/17 13:42 Dose: 200 mls/hr Insulin Human Regular (Novolin R) 0 unit SC ACHS [facility] PRN Reason: Protocol Last Admin: 06/15/17 12:28 Dose: 5 unit Lisinopril (Zestril) 10 mg PO Q12 [facility] Last Admin: 06/15/17 09:56 Dose: 10 mg Silver Sulfadiazine (Silvadene 1% 20 Gm) 0.02 ea TOP QAM [facility] Last Admin: 06/15/17 10:00 Dose: 1 applic Sitagliptin Phosphate (Januvia) 50 mg PO DAILY [facility] Last Admin: 06/15/17 09:56 Dose: 50 mg Zinc Sulfate (Zinc Sulfate 220 Mg Cap) 220 mg PO DAILY [facility] Last Admin: 06/15/17 09:56 Dose: 220 mg
--- NOTE | 2017-06-15 19:29 | CP.PCM.DIS ---
Provider - Provider Date of Admission: 06/13/17 10:54 Attending physician: Richy Prescott MD Time Spent in preparation of Discharge (in minutes): 45 Hospital Course - Lab Results Lab Results: Micro Results 06/13/17 20:25 Drainage Gram Stain - Final 06/13/17 20:25 Drainage Wound Culture - Final Beta Hemolytic Streptococcus A Corynebacterium Species 06/13/17 20:25 Foot - Right Gram Stain - Final 06/13/17 20:25 Foot - Right Wound Culture - Final Beta Hemolytic Streptococcus A Most Recent Lab Values WBC 10.5 K/uL (4.8-10.8) 06/13/17 08:54 RBC 4.39 Mil/uL (4.40-5.90) L 06/13/17 08:54 Hgb 13.6 g/dL (12.0-18.0) 06/13/17 08:54 Hct 39.9 % (35.0-51.0) 06/13/17 08:54 MCV 90.9 fL (80.0-94.0) D 06/13/17 08:54 MCH 31.0 pg (27.0-31.0) 06/13/17 08:54 MCHC 34.1 g/dL (33.0-37.0) 06/13/17 08:54 RDW 13.5 % (11.5-14.5) 06/13/17 08:54 Plt Count 172 K/uL (130-400) 06/13/17 08:54 MPV 9.2 fL (7.2-11.7) 06/13/17 08:54 Neut % (Auto) 66.4 % (50.0-75.0) 06/13/17 08:54 Lymph % (Auto) 20.4 % (20.0-40.0) 06/13/17 08:54 Hubbard % (Auto) 11.4 % (0.0-10.0) H 06/13/17 08:54 Eos % (Auto) 1.1 % (0.0-4.0) 06/13/17 08:54 Baso % (Auto) 0.7 % (0.0-2.0) 06/13/17 08:54 Neut # 7.0 K/uL (1.8-7.0) 06/13/17 08:54 Lymph # 2.2 K/uL (1.0-4.3) 06/13/17 08:54 Hubbard # 1.2 K/uL (0.0-0.8) H 06/13/17 08:54 Eos # 0.1 K/uL (0.0-0.7) 06/13/17 08:54 Baso # 0.1 K/uL (0.0-0.2) 06/13/17 08:54 Sodium 138 mmol/L (132-148) 06/13/17 08:54 Potassium 4.4 mmol/L (3.6-5.2) 06/13/17 08:54 Chloride 102 mmol/L (98-107) 06/13/17 08:54 Carbon Dioxide 25 mmol/L (22-30) 06/13/17 08:54 Anion Gap 16 (10-20) 06/13/17 08:54 BUN 14 mg/dL (9-20) 06/13/17 08:54 Creatinine 0.8 MG/DL (0.8-1.5) 06/13/17 08:54 Est GFR ( Amer) > 60 06/13/17 08:54 Est GFR (Non-Af Amer) > 60 06/13/17 08:54 POC Glucose (mg/dL) 332 mg/dL (65-110) H 06/15/17 16:37 Random Glucose 159 mg/dL (75-110) H 06/13/17 08:54 Calcium 8.6 mg/dl (8.6-10.4) 06/13/17 08:54 - Hospital Course Hospital Course: 66-year-old male admitted to the hospital the right foot cellulitis. Patient has a nonhealing ulcer, almost 3 weeks duration. Patient was initially admitted because of the worsening cellulitis, elevated WBC. Podiatry evaluation, infectious disease evaluation called. Had MRI of the right foot. MRA showing evidence of deficit cellulitis. No evidence of automatic is noted. Patient clinically as the bed. Clinical stable. He will be discharged home with Augmentin. 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 He will also followup with the PMD. Glucose control advised. Information given to the patient in detail. Discharge Exam - Head Exam Head Exam: NORMOCEPHALIC Discharge Plan - Discharge Medications Prescriptions: Amoxicillin/Clavulanate [Augmentin 875 MG-125 MG] 1 tab PO BID #20 tab - Follow Up Plan Condition: GOOD Disposition: HOME/ ROUTINE Instructions: Cellulitis (DC), How to Check Your Blood Sugar (DC), Diabetic Foot Care (DC), Diabetes Mellitus Type 2 in Adults (DC), Abscess (GEN) Additional Instructions: ZULEIKA CARLOS ROMANA CON [place] MEDICO PRIMARIO O CON EL DR. PRESCOTT EN [place] OFICINA ENTRE CARLOS SEMANA--LLAME PARA HACER HORA DE ROMANA. ZULEIKA CARLOS ROMANA CON EL DR. CASSIDY ( DE LOS PIES) EN [place] OFICINA ENTRE CARLOS A DOS SEMANAS--LLAME PARA HACER HORA DE ROMANA. SIGUE TOMANDO TODAS AMAN MEDICINAS EN CASA OSWALDO NORMAL. PARA EL INFECCION EN PATTERSON PIE DERECHO, NHUNG UN ANTIBIOTICO (AUGMENTIN) DOS VECES AL LA PARA MAGUE NAVARRO. CARLOS ENFERMERA VAS A IR A PATTERSON CASA PARA MIRAR A PATTERSON PIE Y INFECCION. LA COMPANIA LE LLAMA ESTA SEMANA. SI TIENES MAS PREGUNTAS, PUEDES LLAMAR AL DR. PRESCOTT O AL DR. CASSIDY. Referrals: Aydin Apple MD [Staff Provider] - Richy Prescott MD [Staff Provider] - Emma Cassidy DPM [Staff Provider] -
== END 2017-06-15 17:44 | disposition home or self-care (01) | DRG 638 ==
LOC: C.ER 07:55 → C.9E 10:54 → C.3T 12:24 → C.9E 12:33 → C.3T 18:55
PROVIDERS: ADMIT Internal Medicine; ATTEND Internal Medicine
PROC: 0H9MXZZ Drainage of Right Foot Skin, External Approach (ICD-10-PCS; principal; 2017-06-13)
DX: E10.621 Type 1 diabetes mellitus with foot ulcer (principal); L03.115 Cellulitis of right lower limb; L97.519 Non-pressure chronic ulcer of other part of right foot with unspecified severity; I10 Essential (primary) hypertension; L02.611 Cutaneous abscess of right foot; E78.00 Pure hypercholesterolemia, unspecified; I25.10 Atherosclerotic heart disease of native coronary artery without angina pectoris; I73.9 Peripheral vascular disease, unspecified; Z79.4 Long term (current) use of insulin

== ENCOUNTER 2017-06-23 11:37 | Emergency (ER) | payer MEDICARE ==
[2017-06-23 11:45] VITALS: TEMP 98.6; O2SAT 98
[2017-06-23] MEDS ORDERED: Bacitracin 500 Units/gm Oint Foilpak UD TOP ONE (11:56)
--- NOTE | 2017-06-23 11:56 | C.PDOC ---
History Of Present Illness 66 year old male presents to ED with complaints of right arm injury today at work, corner of lamp was sharp and cut his arm. He also wants his foot wound checked, stating he missed podiatry appointment yesterday. He was seen in ED 07/20 for foot cellulitis. Time Seen by Provider: 06/23/17 11:55 Chief Complaint (Nursing): Abnormal Skin Integrity History Per: Patient History/Exam Limitations: no limitations Location Of Injury: Right: Arm, Foot Past Medical History Reviewed: Historical Data, Nursing Documentation, Vital Signs Vital Signs: Last Vital Signs Temp 98.6 F 06/23/17 11:44 Pulse 70 06/23/17 12:37 Resp 16 06/23/17 12:37 BP 131/84 06/23/17 12:37 Pulse Ox 98 06/23/17 12:37 - Medical History PMH: CAD, Diabetes, HTN, Hypercholesterolemia Surgical History: No Surg Hx - [facility] Procedures DRAINAGE OF RIGHT FOOT SKIN, EXTERNAL APPROACH (06/13/17) TETANUS TOXOID ADMINIST (06/06/13) Family History: States: Unknown Family Hx - Social History Hx Tobacco Use: No Hx Alcohol Use: No Hx Substance Use: No - Immunization History Hx Tetanus Toxoid Vaccination: Yes Hx Influenza Vaccination: No Hx Pneumococcal Vaccination: No Review Of Systems Skin: Positive for: Other (laceration ) Physical Exam - Physical Exam Appears: No Acute Distress Skin: Warm, Dry, Other (1cm superficial linear laceration to distal right forearm) Head: Atraumatic, Normacephalic Eye(s): bilateral: Normal Inspection, EOMI Nose: Normal Oral Mucosa: Moist Neck: Normal ROM Extremity: Normal ROM, No Tenderness, No Deformity, No Swelling, Other (right plantar foot with healing incisional wound, no erythema, no drainage) Neurological/Psych: Oriented x3, Normal Speech ED Course And Treatment O2 Sat by Pulse Oximetry: 98 Pulse Ox Interpretation: Normal Progress Note: wound irrigated with NS, no deep involvement, more of excoriation than laceration. Bacitracin was applied and bandage. Patient foot wound appears well healing, no signs of acute cellulitis. Instruct to follow up with podiatry Disposition Counseled Patient/Family Regarding: Need For Followup - Disposition Disposition: HOME/ ROUTINE Disposition Time: 12:03 Condition: STABLE Additional Instructions: : Keep area clean and dry. May wash gently with soap and water. Change dressing 1-2 times daily. Return to ER if fever occurs, redness or swelling around wound , pus in the wound. Instructions: Laceration (DC) Forms: [facility] (Telugu) - POA Present On Arrival: None - Clinical Impression Clinical Impression: Visit for wound check, Arm laceration
[2017-06-23] MEDS ORDERED: Bacitracin 500 Units/gm Oint Foilpak UD ONE (11:57)
[2017-06-23 12:41] VITALS: BP 131/84; PULSE 70; RESP 16
== END 2017-06-23 12:36 | disposition home or self-care (01) ==
LOC: C.ER 11:37
DX: S51.811A Laceration without foreign body of right forearm, initial encounter (principal); W45.8XXA Other foreign body or object entering through skin, initial encounter; Y92.89 Other specified places as the place of occurrence of the external cause; Y99.0 Civilian activity done for income or pay; Z48.00 Encounter for change or removal of nonsurgical wound dressing

== ENCOUNTER 2017-12-02 09:42 | Emergency (ER) | payer MEDICARE ==
[2017-12-02 09:49] VITALS: BP 161/85; PULSE 97; RESP 16; TEMP 98.2; O2SAT 98; BMI 30.7
[2017-12-02] MEDS ORDERED: Phenylephrine 1% Nasal Spray (15 ml) NAS STA (10:08)
[2017-12-02] MEDS ORDERED: Phenylephrine 1% Nasal Spray (15 ml) ONE (10:17)
--- NOTE | 2017-12-02 10:36 | C.PDOC ---
History Of Present Illness 67-year-old male, presents to the emergency department with complaints of epistaxis last night from right nare. Reports he is getting nose bleeds on and off for the past several years. He is not on any blood thinners. Denies chest pain or shortness of breath. Time Seen by Provider: 12/02/17 09:50 Chief Complaint (Nursing): ENT Problem Past Medical History Reviewed: Historical Data, Nursing Documentation, Vital Signs Vital Signs: Last Vital Signs Temp 98.2 F 12/02/17 09:48 Pulse 97 H 12/02/17 09:48 Resp 16 12/02/17 09:48 BP 161/85 H 12/02/17 09:48 Pulse Ox 98 12/02/17 12:11 - Medical History PMH: CAD, Diabetes, HTN, Hypercholesterolemia - [facility] Procedures DRAINAGE OF RIGHT FOOT SKIN, EXTERNAL APPROACH (06/13/17) TETANUS TOXOID ADMINIST (06/06/13) Family History: States: No Known Family Hx - Social History Hx Tobacco Use: No Hx Alcohol Use: No Hx Substance Use: No - Immunization History Hx Tetanus Toxoid Vaccination: Yes Hx Influenza Vaccination: No Hx Pneumococcal Vaccination: No Review Of Systems Except As Marked, All Systems Reviewed And Found Negative. Constitutional: Negative for: Fever, Chills ENT: Positive for: Nose Discharge. Negative for: Ear Pain, Nose Congestion, Throat Pain Cardiovascular: Negative for: Chest Pain, Palpitations Respiratory: Negative for: Cough, Shortness of Breath, Sputum Gastrointestinal: Negative for: Nausea, Vomiting Musculoskeletal: Negative for: Neck Pain, Back Pain Skin: Negative for: Rash Neurological: Negative for: Weakness, Numbness, Headache, Dizziness Physical Exam - Physical Exam Appears: Non-toxic, No Acute Distress Skin: Normal Color, Warm, Dry, No Rash Head: Normacephalic Eye(s): bilateral: PERRL Nose: No Deformity, No Tenderness, No Septal Hematoma, Other (No active bleeding in ED. Dried blood in right nare.) Oral Mucosa: Moist Lips: Normal Appearing Throat: Other (No blood visualized in posterior oropharynx) Neck: Normal ROM, Trachea Midline, Supple Chest: Symmetrical Cardiovascular: Rhythm Regular, No Murmur Respiratory: Normal Breath Sounds, No Accessory Muscle Use Extremity: Normal ROM, No Deformity, No Swelling Neurological/Psych: Oriented x3, Normal Speech ED Course And Treatment O2 Sat by Pulse Oximetry: 98 (RA) Pulse Ox Interpretation: Normal Medical Decision Making Medical Decision Making: Patient treated with Phenylepherine. On re-evaluation Patient is resting comfortably, and is in no acute distress. Patient was instructed to follow up with Dr. Esparza in 1-2 days for further evaluation. Disposition - Disposition Referrals: Tan Kitchen [Staff Provider] - Kartik Esparza MD [Staff Provider] - Disposition: HOME/ ROUTINE Disposition Time: 10:34 Condition: GOOD Additional Instructions: Follow up with the medical doctor within 1-2 days. Return if worsened. Instructions: Nosebleeds (DC) - Clinical Impression Clinical Impression: Epistaxis
== END 2017-12-02 10:47 | disposition home or self-care (01) ==
LOC: C.ER 09:42
DX: R04.0 Epistaxis (principal)

== ENCOUNTER 2018-08-10 10:17 | Emergency (ER) | payer MEDICARE ==
[2018-08-10 10:17] VITALS: BMI 30.7
[2018-08-10] MEDS ORDERED: Sodium Chloride 0.9% 500 ML IV ONE ×2 (11:21→12:56)
--- NOTE | 2018-08-10 12:07 | RAD ---
HISTORY: SOB COMPARISON: Chest x-ray performed 06/13/17 TECHNIQUE: Chest, one view. FINDINGS: Examination limited by habitus. LUNGS: No focal consolidation. Please note that chest x-ray has limited sensitivity for the detection of pulmonary masses. PLEURA: No significant pleural effusion identified. No definite pneumothorax . CARDIOVASCULAR: Cardiomegaly. Atherosclerotic calcification of the aorta present. OSSEOUS STRUCTURES: Degenerative changes. VISUALIZED UPPER ABDOMEN: Unremarkable. OTHER FINDINGS: None. IMPRESSION: Cardiomegaly.
--- NOTE | 2018-08-10 12:30 | C.PDOC ---
History Of Present Illness 67 year old male with a hx of diabetes, hypertension, and coronary artery disease present to the ED for evaluation of generalized body weakness for 1 week. Patient notes weakness to both of his legs. He also reports his sugar measured 170 today, normally 200. Denies falling, dizziness, chest pain, shortness of breath, leg swelling, numbness, syncope, tingling, fever, and any other associated symptoms. Time Seen by Provider: 08/10/18 10:56 Chief Complaint (Nursing): Dizziness/Lightheaded History Per: Patient History/Exam Limitations: no limitations Onset/Duration Of Symptoms: Days Current Symptoms Are (Timing): Still Present Past Medical History Reviewed: Historical Data, Nursing Documentation, Vital Signs - Medical History PMH: CAD, Depression, Diabetes, HTN, Hypercholesterolemia - [facility] Procedures DRAINAGE OF RIGHT FOOT SKIN, EXTERNAL APPROACH (06/13/17) TETANUS TOXOID ADMINIST (06/06/13) Family History: States: Unknown Family Hx - Social History Hx Tobacco Use: No Hx Alcohol Use: No Hx Substance Use: No - Immunization History Hx Tetanus Toxoid Vaccination: Yes Hx Influenza Vaccination: No Hx Pneumococcal Vaccination: No Review Of Systems Except As Marked, All Systems Reviewed And Found Negative. Constitutional: Negative for: Fever, Other ((-) falling.) Cardiovascular: Negative for: Chest Pain Respiratory: Negative for: Shortness of Breath Musculoskeletal: Negative for: Other (leg swelling.) Neurological: Positive for: Other ((+) generalized body weakness, leg weakness.). Negative for: Weakness, Numbness, Incoordination, Dizziness Physical Exam - Physical Exam Appears: Well, Non-toxic, No Acute Distress Skin: Normal Color, Warm, Dry Head: Atraumatic, Normacephalic Eye(s): bilateral: EOMI, left: Other (h/o bells, left) Nose: Normal Oral Mucosa: Moist Neck: Normal ROM, Supple Chest: Symmetrical, No Deformity Cardiovascular: Rhythm Regular Respiratory: Normal Breath Sounds, No Rales, No Rhonchi, No Wheezing Gastrointestinal/Abdominal: Normal Exam, Soft, No Tenderness, Other (obese.) Extremity: Normal ROM Neurological/Psych: Oriented x3, Normal Speech, Normal Cognition, Normal Cranial Nerves (2-12 grossly intact), Normal Motor, Normal Sensation ED Course And Treatment - Laboratory Results Result Diagrams: 08/10/18 12:19 08/10/18 12:19 ECG: Interpreted By Me, Viewed By Me ECG Rhythm: Sinus Rhythm Rate From EC O2 Sat by Pulse Oximetry: 96 (RA) Pulse Ox Interpretation: Normal - Other Rad CXR X-Ray: Viewed By Me, Read By Radiologist Interpretation: FINDINGS: Examination limited by habitus. LUNGS: No focal consolidation. Please note that chest x-ray has limited sensitivity for the detection of pulmonary masses. PLEURA: No significant pleural effusion identified. No definite pneumothorax . CARDIOVASCULAR: Cardiomegaly. Atherosclerotic calcification of the aorta present. OSSEOUS STRUCTURES: Degenerative changes. VISUALIZED UPPER ABDOMEN: Unremarkable. OTHER FINDINGS: None. IMPRESSION: Cardiomegaly. - CT Scan/US CT Head Other Rad Studies (CT/US): Read By Radiologist, Radiology Report Reviewed CT/US Interpretation: FINDINGS: Streak artifact limits evaluation of the skull base. HEMORRHAGE: No intracranial hemorrhage. BRAIN: Diffuse atrophy with prominence of the ventricles and sulci noted. No mass effect or edema. Dense intracranial atherosclerosis. Moderate scattered periventricular and subcortical white matter hypodensities, which are nonspecific, but often seen with chronic microvascular ischemic disease. VENTRICLES: No hydrocephalus. 1 x 1 cm peripherally calcified cystic lesion in the right frontal horn lateral ventricle similar in appearance to MRI performed 08/07/16. CALVARIUM: Unremarkable. PA RANASAL SINUSES: Unremarkable as visualized. No significant inflammatory changes. MASTOID AIR CELLS: Unremarkable as visualized. No inflammatory changes. OTHER FINDINGS: None. IMPRESSION: Moderate nonspecific white matter changes. Please note that MRI with diffusion imaging is more sensitive in the detection of acute ischemic event. Stable appearing peripherally calcified cystic lesion in the right frontal horn lateral ventricle. Post infectious/postinflammatory etiologies favored. Progress Note: Plan: CT Head w/o contrast. EKG. CXR. Blood sent. Urinalysis. Re -eval: Patient was offered admission but declined. Had a steady gait. Vitals WNL. Reports feeling better, no body weakness. Patient was instructed to follow up with physician/clinic in 1-2 days. Return precautions discussed. Medical Decision Making Medical Decision Making: The patient declines admission as recommended for medical evaluation. This action is against my medical advice to the patient and with informed refusal. The patient was told that this evaluation is necessary and a full explanation of the rationale was given. The risks of refusing were explained to the patient and include, but are not limited to, worsening of known or currently unknown conditions, permanent disability and from undiagnosed or untreated conditions. The patient has the capacity to make this decision and has the capacity to understand the clinical situation and my explanation of the risks of refusing this test The patient voluntarily accepts these risks. The patient was given the opportunity to ask questions and reconsider. Disposition - Disposition Disposition: HOME/ ROUTINE Disposition Time: 13:09 Condition: STABLE Additional Instructions: Vaya a nation mdico o la clnica en 1-3 cordero sin falta, para mas evaluacin. [employer] los medicamentos yeimy indicado. Volver a la leydi de emergencia en cualquier momento si los sntomas persisten o empeoran. Instructions: Generalized Weakness (DC), Weakness (ED) Forms: [facility] ([place]), (AMA) Informed Refusal - Clinical Impression Clinical Impression: Generalized weakness - PA / BANK WORKER / Resident Statement MD/DO has reviewed & agrees with the documentation as recorded. - Scribe Statement The provider has reviewed the documentation as recorded by the Scribe (Gia Corona) All medical record entries made by the Scribe were at my direction and personally dictated by me. I have reviewed the chart and agree that the record accurately reflects my personal performance of the history, physical exam, medical decision making, and the department course for this patient. I have also personally directed, reviewed, and agree with the discharge instructions and disposition.
[2018-08-10 12:34] LABS: BASO % 0.5 % (0.0-2.0); EOS # 0.1 K/uL (0.0-0.7); EOS % 1.4 % (0.0-4.0); HEMOGLOBIN 14.6 g/dL (12.0-18.0); LYMPH # 2.3 K/uL (1.0-4.3); LYMPH % 25.2 % (20.0-40.0); MEAN CELL VOLUME 91.3 fL (80.0-94.0); MEAN PLATELET VOLUME 10.2 fL (7.2-11.7); MONO # 0.7 K/uL (0.0-0.8); MONO % 7.4 % (0.0-10.0); NEUT % 65.5 % (50.0-75.0); RBC 4.71 Mil/uL (4.40-5.90); RED CELL DISTRIBUTION WIDTH 13.8 % (11.5-14.5); WHITE BLOOD COUNT 9.1 K/uL (4.8-10.8)
--- NOTE | 2018-08-10 12:37 | CT ---
Date of service: 08/10/2018 PROCEDURE: CT HEAD WITHOUT CONTRAST. HISTORY: pain COMPARISON: Brain MRI without contrast performed 08/07/16 TECHNIQUE: Axial computed tomography images were obtained through the head/brain without intravenous contrast. Radiation dose: Total exam DLP = 1261.51 mGy-cm. This CT exam was performed using one or more of the following dose reduction techniques: Automated exposure control, adjustment of the mA and/or kV according to patient size, and/or use of iterative reconstruction technique. FINDINGS: Streak artifact limits evaluation of the skull base. HEMORRHAGE: No intracranial hemorrhage. BRAIN: Diffuse atrophy with prominence of the ventricles and sulci noted. No mass effect or edema. Dense intracranial atherosclerosis. Moderate scattered periventricular and subcortical white matter hypodensities, which are nonspecific, but often seen with chronic microvascular ischemic disease. VENTRICLES: No hydrocephalus. 1 x 1 cm peripherally calcified cystic lesion in the right frontal horn lateral ventricle similar in appearance to MRI performed 08/07/16. CALVARIUM: Unremarkable. PARANASAL SINUSES: Unremarkable as visualized. No significant inflammatory changes. MASTOID AIR CELLS: Unremarkable as visualized. No inflammatory changes. OTHER FINDINGS: None. IMPRESSION: Moderate nonspecific white matter changes. Please note that MRI with diffusion imaging is more sensitive in the detection of acute ischemic event. Stable appearing peripherally calcified cystic lesion in the right frontal horn lateral ventricle. Post infectious/postinflammatory etiologies favored.
[2018-08-10 12:48] LABS: URINE BILIRUBIN NEGATIVE (NEGATIVE); URINE BLOOD NEGATIVE (NEGATIVE); URINE CLARITY Clear (Clear); URINE COLOR Yellow (YELLOW); URINE GLUCOSE (UA) NORMAL (Normal); URINE LEUKOCYTE ESTERASE NEG Leu/uL (Negative); URINE PROTEIN 2+ mg/dL (NEGATIVE); URINE UROBILINOGEN NORMAL mg/dL (0.2-1.0)
[2018-08-10 12:50] LABS: ALB/GLOB RATIO 1.3 (1.0-2.1); ALBUMIN 3.9 g/dL (3.5-5.0); ALT/SGPT 49 U/L (21-72); AST/SGOT 51 U/L (17-59); BLOOD UREA NITROGEN 17 mg/dL (9-20); CALCIUM 9.4 mg/dl (8.6-10.4); GFR NON-AFRICAN AMERICAN > 60
[2018-08-10 13:02] LABS: CK-MB 3.31 ng/mL (0.0-3.38)
[2018-08-10 13:22] LABS: BARBITURATES, UR NEGATIVE (NEGATIVE); BENZODIAZEPINES, UR NEGATIVE (NEGATIVE); OPIATES, UR NEGATIVE (NEGATIVE); PHENCYCLIDINE, UR NEGATIVE (NEGATIVE)
[2018-08-10 13:42] VITALS: BP 150/87; PULSE 85; RESP 20; TEMP 97.7; O2SAT 96
--- NOTE | 2018-08-11 21:49 | CARD ---
APPROVED REPORT Date of service: 08/10/2018 EKG Measurement Heart [id number] <Conclusion> Normal sinus rhythm Nonspecific T wave abnormality Abnormal ECG
== END 2018-08-10 13:41 | disposition home or self-care (01) ==
LOC: C.ER 10:17
DX: R53.1 Weakness (principal)
CPT/HCPCS: 70450; 71045; 80053; 81001; 82550; 82553; 84484; 85025; 93005; 99285; G0480

== ENCOUNTER 2018-09-05 09:25 | Emergency (ER) | payer MEDICARE ==
[2018-09-05 09:26] VITALS: BMI 30.7
[2018-09-05 09:39] VITALS: RESP 18; O2SAT 95
--- NOTE | 2018-09-05 11:39 | C.PDOC ---
History Of Present Illness 67 year old male with a history of diabetes and hypertension presents to the ED for evaluation of left-sided calf tenderness and dull sensation in bilateral hands that began last. The patient reports prior visit to PMD Dr. Tan Coulter who prescribed him medication for the left calf pain, with no improvement. He admits to also taking Aspirin last night with no improvement in the left calf pain. The patient also states his hands dont feel normal with dull sensation. He states he is compliant with medications for diabetes and hypertension. Denies fever, nausea, vomiting, trauma, injuries, and any other associated symptoms. Time Seen by Provider: 09/05/18 10:06 Chief Complaint (Nursing): Lower Extremity Problem/Injury History Per: Patient History/Exam Limitations: no limitations Onset/Duration Of Symptoms: Days Current Symptoms Are (Timing): Still Present Past Medical History Reviewed: Historical Data, Nursing Documentation, Vital Signs Vital Signs: Last Vital Signs Temp 98.4 F 09/05/18 09:36 Pulse 86 09/05/18 09:36 Resp 18 09/05/18 09:36 BP 150/93 H 09/05/18 09:36 Pulse Ox 95 09/05/18 09:36 - Medical History PMH: CAD, Depression, Diabetes, HTN, Hypercholesterolemia - [facility] Procedures DRAINAGE OF RIGHT FOOT SKIN, EXTERNAL APPROACH (06/13/17) TETANUS TOXOID ADMINIST (06/06/13) Family History: States: Unknown Family Hx - Social History Hx Tobacco Use: No Hx Alcohol Use: No Hx Substance Use: No - Immunization History Hx Tetanus Toxoid Vaccination: No Hx Influenza Vaccination: No Hx Pneumococcal Vaccination: No Review Of Systems Except As Marked, All Systems Reviewed And Found Negative. Constitutional: Negative for: Fever, Other ((-) trauma. (-) injuries. ) Gastrointestinal: Negative for: Nausea, Vomiting Musculoskeletal: Positive for: Other (left-sided cald tenderness.) Neurological: Positive for: Other (bilateral hands: dull sensation.) Physical Exam - Physical Exam Appears: Non-toxic, No Acute Distress, Other (obese. ) Skin: Warm, Dry, Other (abrasions to the lower extremities bilaterally. ) Head: Atraumatic, Normacephalic Eye(s): bilateral: Normal Inspection Oral Mucosa: Moist Neck: Normal ROM, Supple Chest: Symmetrical, No Deformity Cardiovascular: Rhythm Regular, No Murmur Respiratory: Normal Breath Sounds, No Rales, No Rhonchi, No Wheezing Gastrointestinal/Abdominal: Normal Exam, Soft, No Tenderness Extremity: Normal ROM (of the lower extremities. ), No Tenderness (bilaterally to the lower extremities. ), No Calf Tenderness (to the left calf.), No Deformity, No Swelling (bilaterally to the lower extremities. ), No Other ((-) to the calves bilaterally. ) Neurological/Psych: Oriented x3, Normal Speech, Normal Cognition, Normal Motor, Normal Sensation, Normal Reflexes ED Course And Treatment O2 Sat by Pulse Oximetry: 95 (RA) Pulse Ox Interpretation: Normal Medical Decision Making Medical Decision Making: Plan: -Venous Duplex Scan Low Ext. LT Progress/Update: Results discussed with the patient. Patient is stable for discharge home. Prescribed Naproxen. Disposition - Disposition Referrals: Tan Kitchen [Staff Provider] - Disposition: HOME/ ROUTINE Disposition Time: 11:39 Condition: STABLE Prescriptions: Naproxen [Naprosyn] 1 tab PO BID PRN #25 tab PRN Reason: Pain Instructions: Muscle Spasms (DC) Forms: Gen Discharge Inst Israeli, [facility] ([place]i) - POA Present On Arrival: None - Clinical Impression Clinical Impression: Arthritis, Joint pain, Muscle spasm - Scribe Statement The provider has reviewed the documentation as recorded by the Scribe (Gia Corona) Provider Attestation: All medical record entries made by the Scribe were at my direction and personally dictated by me. I have reviewed the chart and agree that the record accurately reflects my personal performance of the history, physical exam, medical decision making, and the department course for this patient. I have also personally directed, reviewed, and agree with the discharge instructions and disposition.
[2018-09-05 11:41] VITALS: BP 153/89; PULSE 82; TEMP 98.1
--- NOTE | 2018-09-06 13:17 | VASCLAB ---
Date of service: 09/05/2018 PROCEDURE: Left Lower Extremity Venous Duplex Exam. HISTORY: Left leg pain, numbness. PRIORS: None. TECHNIQUE: Left common femoral, femoral, popliteal and posterior tibial, peroneal and great saphenous veins were evaluated. Flow was assessed with color Doppler, compressibility, assessment of phasic flow and augmentation response. Report prepared by NABEEL Mendez FINDINGS: LEFT: 1. Common Femoral Vein: 1.1. Compressibility - Fully compressible: Thrombus - None : Flow - Phasic: Augmentation -Normal: Reflux - None. 2. Femoral Vein: 2.1. Compressibility - Fully compressible: Thrombus - None: Flow - Phasic: Augmentation -Normal: Reflux - None. 3. Popliteal Vein: 3.1. Compressibility - Fully compressible: Thrombus - None: Flow - Phasic: Augmentation -Normal: Reflux - None. 4. Posterior Tibial Vein: 4.1. Compressibility - Fully compressible: Thrombus - None: Flow - Phasic: Augmentation -Normal: Reflux - None. 5. Peroneal Vein: 5.1. Compressibility - Fully compressible: Thrombus - None: Flow - Phasic: Augmentation -Normal: Reflux - None. 6. Great Saphenous Vein: 6.1. Compressibility - Fully compressible: Thrombus - None: Flow - Phasic: Augmentation - Normal: Reflux - None. OTHER FINDINGS: Normal arterial flow noted of the left distal arteries. IMPRESSION: No evidence of deep or superficial vein thrombosis of the left lower extremity with excellent venous flow. Normal valve function noted of the left side. Normal venous flow noted in the right common femoral vein.
== END 2018-09-05 11:46 | disposition home or self-care (01) ==
LOC: C.ER 09:25
DX: M13.88 Other specified arthritis, other site (principal); M25.50 Pain in unspecified joint; M62.838 Other muscle spasm

== ENCOUNTER 2018-10-07 22:49 | Emergency (ER) | payer MEDICARE ==
[2018-10-07 22:49] VITALS: BMI 30.7
--- NOTE | 2018-10-08 00:16 | C.PDOC ---
History Of Present Illness 67 year old male presents to the ED c/o SOB, chest discomfort and cough that has been worsening for the last 3-4 days. Patient feels like he is not getting enough air, able to speak in complete sentences. Patient denies fever, chills, CP, palpitations, headache, nausea, vomit, dizziness, weakness, numbness. Time Seen by Provider: 10/08/18 00:15 Chief Complaint (Nursing): Chest Pain History Per: Patient History/Exam Limitations: no limitations Onset/Duration Of Symptoms: Days (3-4) Current Symptoms Are (Timing): Still Present Quality: Tightness Exacerbating Factors: Other (cough) Recent travel outside of the [place]: No Additional History Per: Patient Past Medical History Reviewed: Historical Data, Nursing Documentation, Vital Signs Vital Signs: Last Vital Signs Temp 98.2 F 10/07/18 23:12 Pulse 98 H 10/07/18 23:12 Resp 20 10/07/18 23:12 BP 172/97 H 10/07/18 23:12 Pulse Ox 94 L 10/07/18 23:12 - Medical History PMH: CAD, Depression, Diabetes, HTN, Hypercholesterolemia Surgical History: No Surg Hx - [facility] Procedures DRAINAGE OF RIGHT FOOT SKIN, EXTERNAL APPROACH (06/13/17) TETANUS TOXOID ADMINIST (06/06/13) Family History: States: Unknown Family Hx - Social History Hx Tobacco Use: No Hx Alcohol Use: No Hx Substance Use: No - Immunization History Hx Tetanus Toxoid Vaccination: No Hx Influenza Vaccination: No Hx Pneumococcal Vaccination: No Review Of Systems Constitutional: Negative for: Fever, Chills Cardiovascular: Negative for: Chest Pain, Palpitations Respiratory: Positive for: Cough, Shortness of Breath Gastrointestinal: Negative for: Nausea, Vomiting, Abdominal Pain Skin: Negative for: Rash Neurological: Negative for: Weakness, Numbness, Headache, Dizziness Physical Exam - Physical Exam Appears: Non-toxic, No Acute Distress Skin: Warm, Dry Head: Normacephalic Eye(s): bilateral: Normal Inspection Oral Mucosa: Moist Throat: No Erythema, No Exudate Neck: Supple Chest: Symmetrical Cardiovascular: Rhythm Regular Respiratory: No Rales, Rhonchi (scattered ), No Wheezing Gastrointestinal/Abdominal: Soft, No Tenderness, No Guarding, No Rebound Extremity: Bilateral: Atraumatic, Normal Color And Temperature, Normal ROM, Oth er (trace pedal edema) Neurological/Psych: Oriented x3, Normal Speech, Normal Cognition Gait: Steady ED Course And Treatment - Laboratory Results Result Diagrams: 10/08/18 01:18 10/08/18 01:18 ECG: Interpreted By Me, Viewed By Me ECG Rhythm: Sinus Rhythm (100), Nonspecific Changes O2 Sat by Pulse Oximetry: 94 Pulse Ox Interpretation: Normal - Radiology CXR: Interpreted by Me, Viewed By Me CXR Interpretation: Yes: Cardiomegaly. No: Infiltrates, Fracture, Pnemothorax Progress Note: Plan: - ABG. - EKG. - Labs. - CXR. - Duoneb. - Aspirin 325 mg PO. - UA. patient states that he feels much better and wants to go home. Understands the risks as I've explained at length, including , but he still wants to go home. States he will return if symptoms recur Reevaluation Time: 03:02 Reassessment Condition: Improved Disposition Counseled Patient/Family Regarding: Studies Performed, Diagnosis, Need For Followup, Rx Given - Disposition Referrals: Tan Kitchen [Staff Provider] - Disposition: HOME/ ROUTINE Disposition Time: 00:15 Condition: FAIR Additional Instructions: Please return if symptoms recur Prescriptions: Albuterol HFA [Ventolin HFA 90 mcg/actuation (8 g)] 2 puff IH [id number] #1 puff Azithromycin [Zithromax Tri-Josh] 500 mg PO DAILY #3 tab Instructions: Shortness of Breath (Dyspnea) (DC), Acute Bronchitis, Adult (DC) Forms: [facility] ([place]) - Clinical Impression Clinical Impression: Dyspnea, Bronchitis - Scribe Statement The provider has reviewed the documentation as recorded by the Scribe Tad Mitchell All medical record entries made by the Scribe were at my direction and personally dictated by me. I have reviewed the chart and agree that the record accurately reflects my personal performance of the history, physical exam, medical decision making, and the department course for this patient. I have also personally directed, reviewed, and agree with the discharge instructions and disposition.
[2018-10-08] MEDS ORDERED: Aspirin 325 mg EC Tablets PO STA (00:31)
[2018-10-08] MEDS: Albuterol-Ipratrop 3 mg / 0.5 (3 ml) UD IH SCH ×3 (00:45→01:09)
[2018-10-08 00:49] LABS: ABG ALLEN TEST POS; ARTERIAL BLOOD GAS HCO3 24.1 mmol/L (21-28); ARTERIAL BLOOD GAS O2 SAT 93.1 % (95-98); ARTERIAL BLOOD GAS PCO2 44 mm/Hg (35-45); ARTERIAL BLOOD GAS PH 7.36 (7.35-7.45); ARTERIAL BLOOD GAS PO2 62 mm/Hg (80-100); ARTERIAL BLOOD GAS TCO2 26.3 mmol/L (22-28)
[2018-10-08] MEDS ORDERED: Albuterol-Ipratrop 3 mg / 0.5 (3 ml) UD ONE ×3 (00:54→00:57)
[2018-10-08 01:21] LABS: BASO % 0.3 % (0.0-2.0); EOS # 0.2 K/uL (0.0-0.7); EOS % 1.7 % (0.0-4.0); HEMOGLOBIN 13.9 g/dL (12.0-18.0); LYMPH # 2.1 K/uL (1.0-4.3); LYMPH % 18.3 % (20.0-40.0); MEAN CORPUSCULAR HEMOGLOBIN 30.6 pg (27.0-31.0); MEAN CORPUSCULAR HGB CONC 32.8 g/dL (33.0-37.0); MEAN PLATELET VOLUME 10.1 fL (7.2-11.7); MONO # 0.9 K/uL (0.0-0.8); MONO % 7.7 % (0.0-10.0); NEUT # 8.4 K/uL (1.8-7.0); RBC 4.55 Mil/uL (4.40-5.90); RED CELL DISTRIBUTION WIDTH 13.5 % (11.5-14.5); WHITE BLOOD COUNT 11.6 K/uL (4.8-10.8)
[2018-10-08 01:22] LABS: MEAN CELL VOLUME 93.3 fL (80.0-94.0)
[2018-10-08 01:31] LABS: INR 1.1; PROTHROMBIN TIME 12.4 SECONDS (9.7-12.2)
[2018-10-08 01:45] LABS: ALB/GLOB RATIO 1.5 (1.0-2.1); ALBUMIN 4.1 g/dL (3.5-5.0); ALT/SGPT 53 U/L (21-72); AST/SGOT 40 U/L (17-59); BLOOD UREA NITROGEN 19 mg/dL (9-20); CALCIUM 8.7 mg/dl (8.6-10.4); GFR NON-AFRICAN AMERICAN > 60
[2018-10-08] MEDS ORDERED: Aspirin 325 mg EC Tablets PO ONE (01:48)
[2018-10-08 01:57] LABS: B-TYPE NATRIURETIC PEPTIDE 398 pg/mL (0-900)
[2018-10-08 03:14] LABS: GRANULAR CAST 28 /lpf (0-1); URINE BILIRUBIN NEGATIVE (NEGATIVE); URINE BLOOD NEGATIVE (NEGATIVE); URINE CLARITY Clear (Clear); URINE COLOR Yellow (YELLOW); URINE GLUCOSE (UA) 2+ mg/dL (Normal); URINE LEUKOCYTE ESTERASE NEG Leu/uL (Negative); URINE PROTEIN 3+ mg/dL (NEGATIVE); URINE UROBILINOGEN NORMAL mg/dL (0.2-1.0)
[2018-10-08 03:34] VITALS: BP 150/80; PULSE 86; RESP 16; TEMP 98.5; O2SAT 98
--- NOTE | 2018-10-08 08:38 | RAD ---
HISTORY: SOB COMPARISON: Chest x-ray performed 08/10/18 TECHNIQUE: Chest, one view. FINDINGS: Examination limited by habitus. LUNGS: No focal consolidation. Please note that chest x-ray has limited sensitivity for the detection of pulmonary masses. PLEURA: No significant pleural effusion identified. No definite pneumothorax . CARDIOVASCULAR: Borderline cardiomegaly. Faint atherosclerotic calcifications present. OSSEOUS STRUCTURES: Degenerative changes. VISUALIZED UPPER ABDOMEN: Unremarkable. OTHER FINDINGS: None. IMPRESSION: No focal consolidation.
--- NOTE | 2018-10-10 12:20 | CARD ---
APPROVED REPORT Date of service: 10/07/2018 EKG Measurement Heart [id number] <Conclusion> Normal sinus rhythm Possible Left atrial enlargement Nonspecific T wave abnormality Abnormal ECG
== END 2018-10-08 03:28 | disposition home or self-care (01) ==
LOC: C.ER 22:49
DX: J40 Bronchitis, not specified as acute or chronic (principal); R06.00 Dyspnea, unspecified; E11.9 Type 2 diabetes mellitus without complications; I10 Essential (primary) hypertension; E78.00 Pure hypercholesterolemia, unspecified; I25.10 Atherosclerotic heart disease of native coronary artery without angina pectoris

== ENCOUNTER 2018-10-08 21:10 | Inpatient (IN) | payer MEDICARE ==
[2018-10-08 21:10] VITALS: BMI 30.7
[2018-10-08] MEDS ORDERED: Albuterol-Ipratrop 3 mg / 0.5 (3 ml) UD ONE ×2 (21:21→21:50)
[2018-10-08] MEDS: Albuterol-Ipratrop 3 mg / 0.5 (3 ml) UD IH SCH ×3 (21:30→22:00)
--- NOTE | 2018-10-08 21:30 | C.PDOC ---
History Of Present Illness 67 y/o male with a PMHx of HTN and CAD, returns to the ED complaining of SOB, worsening since yesterday. Patient was seen here yesterday for similar complaint. States SOB has progressively worsened since leaving the hospital yesterday. No chest pain or palpitations. On arrival patients O2 sat is 87% on RA. Patient placed on bipap, reports improvement. Otherwise he denies any nausea, vomiting, fever, chills, sweats, abdominal pain, numbness, weakness, or dizziness. Time Seen by Provider: 10/08/18 21:30 Chief Complaint (Nursing): Shortness Of Breath History Per: Patient History/Exam Limitations: no limitations Onset/Duration Of Symptoms: Days (x2) Current Symptoms Are (Timing): Worse Initiating Event: Upper Respiratory Illness Quality: denies: Sharp Exacerbating Factor(s): Exertion, Coughing Current Respiratory Medications: See Home Med List Severity: Severe Pain Scale Rating Of: 8 Associated Symptoms: denies: Fever, Chills, Chest Pain Reports Recently: Seen In ED, Treated By A Physician Recent travel outside of the [place]: No Additional History Per: Patient Past Medical History Reviewed: Historical Data, Nursing Documentation, Vital Signs Vital Signs: Last Vital Signs Temp 97.9 F 10/08/18 21:22 Pulse 106 H 10/08/18 21:22 Resp 28 H 10/08/18 21:22 BP 209/122 H 10/08/18 21:22 Pulse Ox 87 L 10/08/18 21:22 - Medical History PMH: CAD, Depression, Diabetes, HTN, Hypercholesterolemia - [facility] Procedures DRAINAGE OF RIGHT FOOT SKIN, EXTERNAL APPROACH (06/13/17) TETANUS TOXOID ADMINIST (06/06/13) Family History: States: No Known Family Hx - Social History Hx Tobacco Use: No Hx Alcohol Use: No Hx Substance Use: No - Immunization History Hx Tetanus Toxoid Vaccination: No Hx Influenza Vaccination: No Hx Pneumococcal Vaccination: No Review Of Systems Constitutional: Negative for: Fever, Chills Eyes: Negative for: Redness ENT: Negative for: Throat Pain Cardiovascular: Negative for: Chest Pain, Palpitations Respiratory: Positive for: Shortness of Breath, SOB with Excertion, Wheezing Gastrointestinal: Negative for: Nausea, Vomiting, Abdominal Pain Genitourinary: Negative for: Dysuria Musculoskeletal: Negative for: Back Pain Skin: Negative for: Rash Neurological: Negative for: Weakness, Numbness, Dizziness Psych: Negative for: Anxiety Physical Exam - Physical Exam Appears: In Acute Distress (moderate respiratory distress) Skin: Warm, Dry Head: Normacephalic Eye(s): bilateral: Normal Inspection Oral Mucosa: Dry Teeth: Normal Dentition Neck: Trachea Midline, Supple Chest: Symmetrical Cardiovascular: Rhythm Regular (but Tachycardic) Respiratory: Decreased Breath Sounds, Rales (few at bases), Rhonchi, No Wheezing Gastrointestinal/Abdominal: Soft, No Tenderness, No Distention Back: Normal Inspection Extremity: Normal ROM, Pedal Edema (trace), No Deformity Extremity: Bilateral: Normal Color And Temperature, Normal ROM Pulses: Left Dorsalis Pedis: Normal, Right Dorsalis Pedis: Normal Neurological/Psych: Oriented x3 Gait: Steady ED Course And Treatment - Laboratory Results Result Diagrams: 10/08/18 21:38 10/08/18 21:38 ECG: Interpreted By Me, Viewed By Me ECG Rhythm: Sinus Rhythm (106), Nonspecific Changes O2 Sat by Pulse Oximetry: 87 (on RA) Pulse Ox Interpretation: Abnormal - Radiology CXR: Interpreted by Me, Viewed By Me Progress Note: Blood work, ABG, urine, cultures sent to the lab. EKG, CXR ordered and reviewed. Administered duoneb and 125 mg IV solu-medrol. Critical Care Time - Critical Care Note Total Time (in mins): 30 Documented critical care: time excludes all time spent performing seperately billable procedures. Disposition Discussed With : Richy Linder Comment: accepted the pt on his service and took over the care at 10:10 PM Counseled Patient/Family Regarding: Studies Performed, Diagnosis - Disposition Disposition: HOSPITALIZED Disposition Time: 21:30 Condition: GUARDED Forms: [facility] (Bengali) - POA Present On Arrival: Poor Glycemic Control - Clinical Impression Clinical Impression: Respiratory distress, Bronchitis, COPD exacerbation - Scribe Statement The provider has reviewed the documentation as recorded by the Dolores Brandt Provider Attestation: All medical record entries made by the Arleneibasia were at my direction and pe rsonally dictated by me. I have reviewed the chart and agree that the record accurately reflects my personal performance of the history, physical exam, medical decision making, and the department course for this patient. I have also personally directed, reviewed, and agree with the discharge instructions and disposition. Decision To Admit - Pt Status Changed To: Hospital Disposition Of: Inpatient - Admit Certification Admit to Inpatient:: After my assessment, the patient will require hospit alization for at least two midnights. This is because of the severity of symptoms shown, intensity of services needed, and/or the medical risk in this patient being treated as an outpatient. - InPatient: Physician Admission Certification: I certify that this patient requires 2 or more midnights of care for the following reason:: After my assessment, the alfie ent will require hospitalization for at least two midnights. This is because of the severity of symptoms shown, intensity of services needed, and/or the medical risk in this patient being treated as an outpatient. - . Bed Request Type: Telemetry Admitting Physician: Richy Linder Patient Diagnosis: Respiratory distress, Bronchitis, COPD exacerbation
[2018-10-08 21:41] LABS: BASO # 0.1 K/uL (0.0-0.2); BASO % 0.8 % (0.0-2.0); EOS # 0.2 K/uL (0.0-0.7); EOS % 1.3 % (0.0-4.0); HEMOGLOBIN 15.1 g/dL (12.0-18.0); LYMPH # 3.4 K/uL (1.0-4.3); LYMPH % 26.3 % (20.0-40.0); MEAN CELL VOLUME 93.4 fL (80.0-94.0); MEAN CORPUSCULAR HEMOGLOBIN 30.6 pg (27.0-31.0); MEAN CORPUSCULAR HGB CONC 32.7 g/dL (33.0-37.0); MEAN PLATELET VOLUME 9.7 fL (7.2-11.7); MONO % 7.6 % (0.0-10.0); NEUT # 8.3 K/uL (1.8-7.0); RBC 4.93 Mil/uL (4.40-5.90); RED CELL DISTRIBUTION WIDTH 13.9 % (11.5-14.5); WHITE BLOOD COUNT 12.9 K/uL (4.8-10.8)
[2018-10-08 21:50] LABS: INR 1.1; PROTHROMBIN TIME 12.1 SECONDS (9.7-12.2)
[2018-10-08 21:54] LABS: ALB/GLOB RATIO 1.6 (1.0-2.1); ALBUMIN 4.6 g/dL (3.5-5.0); ALT/SGPT 58 U/L (21-72); AST/SGOT 41 U/L (17-59); BLOOD UREA NITROGEN 18 mg/dL (9-20); CALCIUM 8.5 mg/dl (8.6-10.4); GFR NON-AFRICAN AMERICAN > 60
[2018-10-08 21:55] LABS: ABG ALLEN TEST POS; ARTERIAL BLOOD GAS HCO3 24.3 mmol/L (21-28); ARTERIAL BLOOD GAS O2 SAT 96.8 % (95-98); ARTERIAL BLOOD GAS PCO2 47 mm/Hg (35-45); ARTERIAL BLOOD GAS PH 7.34 (7.35-7.45); ARTERIAL BLOOD GAS PO2 102 mm/Hg (80-100); ARTERIAL BLOOD GAS TCO2 26.8 mmol/L (22-28)
[2018-10-08 22:05] LABS: B-TYPE NATRIURETIC PEPTIDE 413 pg/mL (0-900)
[2018-10-08] MEDS ORDERED: Piperacillin/Tazobact 3.375 gm 100 ML IVPB STA (22:06)
[2018-10-08 23:15] LABS: URINE BILIRUBIN NEGATIVE (NEGATIVE); URINE BLOOD NEGATIVE (NEGATIVE); URINE CLARITY Clear (Clear); URINE COLOR Straw (YELLOW); URINE GLUCOSE (UA) 2+ mg/dL (Normal); URINE LEUKOCYTE ESTERASE NEG Leu/uL (Negative); URINE PROTEIN 2+ mg/dL (NEGATIVE); URINE UROBILINOGEN NORMAL mg/dL (0.2-1.0)
--- NOTE | 2018-10-08 23:52 | CP.PCM.HP ---
History of Present Illness - History of Present Illness History of Present Illness: Chief complaint: Shortness of breath. History present illness: 67-year-old male with history diabetes, hypertension, diabetes is poorly controlled, came to the emergency room this morning with shortness of breath. Patient was sent home. He again started having shortness of breath, unable to lie flat, he came to the emergency because of the worsening S OB. In the emergency room patient was evaluated. Was placed on BiPAP because of the worsening shortness of breath. There is also having some chest tightness. He denies any cough. No fever or chills noted. Patient supposed to be seeing Dr. Kitchen in the office next week. He has no stomach symptoms, he denies any chest pain, but his severe exertional dyspnea noted. In the past patient had right foot ulcer, injury and had an infection in the past. His blood sugar is also not controlled well. Patient is being seen by Dr. Kitchen, also diabetic foot ulcer Past medical history: Diabetes, hypertension, hypercholesteremia, CAD, Allergy no known drug allergy. Personal history nonsmoker, nonalcoholic patient is currently working full-time Review of systems Currently patient is having no headache. He denies any visual symptoms. He has worsening shortness of breath, got worse in the last 3 days. Exertional dyspnea noted. Even at rest today he could not breathe. He denies any GI symptoms. On and off leg swelling noted On examination: HEENT PERRLA, neck supple no JVD noted No thyromegaly was noted and no cervical adenopathy noted Chest bilateral wheezing minimally noted CVS regular heart sound, no murmur Abdomen soft and no organomegaly Peripheral pulses is normal. 1+ pedal edema bilaterally noted The proBNP level is normal Chest x-ray showing evidence of pulmonary Edema pattern noted EKG showing evidence of ischemic pattern in the lateral limb leads. Troponin level is negative Assessment and recommendation: 67-year-old male with history diabetes, hypertension, hypercholesteremia, Also history of diabetes, poorly controlled, came to the emergency room with worsening shortness of breath. Flash pulmonary edema cannot be ruled out. Patient also has had some changes in the EKG. Considering this as well as elevated blood pressure I advised the patient to get admitted to the hospital. Patient will need BiPAP support. Nitroglycerin drip. Aspirin. Beta-nubia. Cardiology evaluation. DVT and GI prophylaxis We will admit the patient to the ICU to close monitor. I discussed with the patient. We will follow the patient Present on Admission - Present on Admission Any Indicators Present on Admission: No History of DVT/PE: No History of Uncontrolled Diabetes: No Urinary Catheter: No Decubitus Ulcer Present: No Past Patient History - Infectious Disease Hx of Infectious Diseases: None - Past Medical History & Family History Past Medical History?: Yes - Past Social History Smoking Status: Never Smoked - CARDIAC Hx Hypercholesterolemia: Yes Hx Hypertension: Yes - PULMONARY Hx Respiratory Disorders: No - ENDOCRINE/METABOLIC Hx Endocrine Disorders: Yes Hx Diabetes Mellitus Type 1: Yes - MUSCULOSKELETAL/RHEUMATOLOGICAL Hx Falls: No - PSYCHIATRIC Hx Depression: Yes Hx Substance Use: No - SURGICAL HISTORY Hx Surgeries: No Other/Comment: foot surgery - ANESTHESIA Hx Anesthesia: Yes Hx Anesthesia Reactions: No Hx Malignant Hyperthermia: No Meds Allergies/Adverse Reactions: Allergies Allergy/AdvReac Type Severity Reaction Status Date / Time No Known Allergies Allergy Verified 10/08/18 21:27 Results - Vital Signs Recent Vital Signs: Last Vital Signs Temp 97.9 F 10/08/18 21:22 Pulse 108 H 10/08/18 23:00 Resp 20 10/08/18 23:02 BP 135/80 10/08/18 23:00 Pulse Ox 98 10/08/18 23:02 - Labs Result Diagrams: 10/08/18 21:38 10/08/18 21:38 Labs: Laboratory Results - last 24 hr 10/08/18 10/08/18 10/08/18 21:38 21:38 21:38 WBC 12.9 H RBC 4.93 Hgb 15.1 Hct 46.1 MCV 93.4 MCH 30.6 MCHC 32.7 L RDW 13.9 Plt Count 241 MPV 9.7 Neut % (Auto) 64.0 Lymph % (Auto) 26.3 [place] % (Auto) 7.6 Eos % (Auto) 1.3 Baso % (Auto) 0.8 Neut # (Auto) 8.3 H Lymph # (Auto) 3.4 [place] # (Auto) 1.0 H Eos # (Auto) 0.2 Baso # (Auto) 0.1 PT 12.1 INR 1.1 APTT 34 Puncture Site pCO2 pO2 HCO3 ABG pH ABG Total CO2 ABG O2 Saturation ABG Base Excess Gucci Test ABG Potassium Glucose Lactate Liter Flow Sodium 138 Potassium 4.1 Chloride 99 Carbon Dioxide 28 Anion Gap 15 BUN 18 Creatinine 0.9 Est GFR ( Amer) > 60 Est GFR (Non-Af Amer) > 60 Random Glucose 273 H Calcium 8.5 L Total Bilirubin 0.9 AST 41 ALT 58 Alkaline Phosphatase 76 Troponin I 0.0130 NT-Pro-B Natriuret Pep 413 Total Protein 7.5 Albumin 4.6 Globulin 2.9 Albumin/Globulin Ratio 1.6 Arterial Blood Potassium Urine Color Urine Clarity Urine pH Ur Specific [place] Urine Protein Urine Glucose (UA) Urine Ketones Urine Blood Urine Nitrate Urine Bilirubin Urine Urobilinogen Ur Leukocyte Esterase Urine WBC (Auto) 10/08/18 10/08/18 21:50 23:10 WBC RBC Hgb Hct MCV MCH MCHC RDW Plt Count MPV Neut % (Auto) Lymph % (Auto) [place] % (Auto) Eos % (Auto) Baso % (Auto) Neut # (Auto) Lymph # (Auto) [place] # (Auto) Eos # (Auto) Baso # (Auto) PT INR APTT Puncture Site Rra pCO2 47 H pO2 102 H HCO3 24.3 ABG pH 7.34 L ABG Total CO2 26.8 ABG O2 Saturation 96.8 ABG Base Excess -0.8 Gucci Test Pos ABG Potassium 3.8 Glucose 284 H Lactate 1.7 Liter Flow 12.0 Sodium 136.0 Potassium Chloride 102.0 Carbon Dioxide Anion Gap BUN Creatinine Est GFR ( Amer) Est GFR (Non-Af Amer) Random Glucose Calcium Total Bilirubin AST ALT Alkaline Phosphatase Troponin I NT-Pro-B Natriuret Pep Total Protein Albumin Globulin Albumin/Globulin Ratio Arterial Blood Potassium 3.8 Urine Color Straw Urine Clarity Clear Urine pH 5.0 Ur Specific [place] 1.010 Urine Protein 2+ H Urine Glucose (UA) 2+ H Urine Ketones Negative Urine Blood Negative Urine Nitrate Negative Urine Bilirubin Negative Urine Urobilinogen Normal Ur Leukocyte Esterase Neg Urine WBC (Auto) < 1
[2018-10-09] MEDS: Nitroglycerin 50mg in D5W 50 MG/250 ML BOTTLE IV SCH ×2 (00:10→23:47)
[2018-10-09 06:17] LABS: BASO % 0.1 % (0.0-2.0); HEMOGLOBIN 13.3 g/dL (12.0-18.0); LYMPH # 0.8 K/uL (1.0-4.3); LYMPH % 8.9 % (20.0-40.0); MEAN CELL VOLUME 91.9 fL (80.0-94.0); MEAN CORPUSCULAR HEMOGLOBIN 31.3 pg (27.0-31.0); MEAN PLATELET VOLUME 10.2 fL (7.2-11.7); MONO # 0.1 K/uL (0.0-0.8); MONO % 1.3 % (0.0-10.0); NEUT # 8.2 K/uL (1.8-7.0); NEUT % 89.7 % (50.0-75.0); PLATELET COUNT 223 K/uL (130-400); RBC 4.24 Mil/uL (4.40-5.90); RED CELL DISTRIBUTION WIDTH 13.6 % (11.5-14.5); WHITE BLOOD COUNT 9.1 K/uL (4.8-10.8)
[2018-10-09 06:40] LABS: ALB/GLOB RATIO 1.4 (1.0-2.1); ALBUMIN 3.9 g/dL (3.5-5.0); ALT/SGPT 52 U/L (21-72); AST/SGOT 29 U/L (17-59); BLOOD UREA NITROGEN 22 mg/dL (9-20); CALCIUM 8.1 mg/dl (8.6-10.4); GFR NON-AFRICAN AMERICAN > 60
[2018-10-09 06:54] LABS: CK-MB 2.47 ng/mL (0.0-3.38)
[2018-10-09] MEDS: (Novolin R) Insulin Human Regular 100 units/ml vial SC SCH ×4 (07:52→21:44)
[2018-10-09 08:55] LABS: LYMPHOCYTE 8 % (20-40); MONOCYTE 1 % (0-10); NEUTROPHIL 91 % (50-75); PLATELET ESTIMATE NORMAL (NORMAL); TOTAL CELLS COUNTED 100
[2018-10-09 08:56] LABS: ANISOCYTOSIS SLIGHT; POLYCHROMIC SLIGHT
[2018-10-09 08:57] LABS: LARGE PLATELETS PRESENT; OVALOCYTES SLIGHT; POIKILOCYTOSIS SLIGHT
[2018-10-09 08:58] LABS: TOXIC GRANULATION PRESENT
--- NOTE | 2018-10-09 09:00 | CP.PCM.PN ---
Subjective - Date & Time of Evaluation Date of Evaluation: 10/09/18 Time of Evaluation: 08:59 - Subjective Subjective: Patient is still on BiPAP today this morning. He is feeling well. But complaining of some discomfort in the chest, shortness of breath still noted. On my nitroglycerin drip. On examination: Vital signs stable. Systolic blood pressure slightly elevated Chest good air entry, minimal expiratory wheezing noted. Regular heart sounds. Abdomen soft nontender. 1+ pedal edema Labs reviewed Nonspecific. Elevated glucose levels noted. Chest x-ray pending Assessment and recommendation: 67-year-old male with a history of CAD hypertension hypercholesterolemia diabetes admitted with likely diastolic heart failure with pulmonary edema. Even though proBNP level is normal we will get echocardiogram cardiology evaluation. Awaiting for pro calcitonin. Patient might need angiogram will discuss with cardiology and will follow the patient Objective - Vital Signs/Intake and Output Vital Signs (last 24 hours): Temp Pulse Resp BP Pulse Ox 97.6 F 100 H 14 148/91 H 95 10/09/18 08:00 10/09/18 08:00 10/09/18 08:00 10/09/18 07:33 10/09/18 08:00 Intake and Output: 10/09/18 10/09/18 06:59 18:59 Intake Total 109.5 124.5 Output Total 1300 0 Balance -1190.5 124.5 - Medications Medications: Current Medications Aspirin (Aspirin) 325 mg PO DAILY [facility] Carvedilol (Coreg) 3.125 mg PO BID [facility] Furosemide (Lasix) 40 mg IVP Q12 [facility] Gabapentin (Neurontin) 100 mg PO BID [facility] Glipizide (Glucotrol) 10 mg PO BID [facility] Heparin Sodium (Porcine) (Heparin) 5,000 units SC Q8 [facility] Last Admin: 10/09/18 06:18 Dose: 5,000 units Nitroglycerin/Dextrose (Nitroglycerin 50 Mg/250 Ml D5w) 50 mg in 250 mls @ 1.5 mls/hr IV .Q24H [facility]; Protocol Last Admin: 10/09/18 00:10 Dose: 5 mcg/min, 1.5 mls/hr Insulin Glargine (Lantus) 30 unit SC HS [facility] Insulin Human Regular (Novolin R) 0 unit SC ACHS [facility]; Protocol Last Admin: 10/09/18 07:52 Dose: 5 u Lisinopril (Zestril) 20 mg PO DAILY [facility] Pantoprazole Sodium (Protonix Inj) 40 mg IVP DAILY [facility] Rosuvastatin Calcium (Crestor) 5 mg PO HS [facility] Sitagliptin Phosphate (Januvia) 100 mg PO DAILY [facility] - Labs Labs: 10/09/18 06:10 10/09/18 06:10 PT 12.1 SECONDS (9.7-12.2) 10/08/18 21:38 INR 1.1 10/08/18 21:38 APTT 34 SECONDS (21-34) 10/08/18 21:38
--- NOTE | 2018-10-09 09:23 | RAD ---
HISTORY: SOB COMPARISON: Chest x-ray performed 10/08/18 at 137 hr TECHNIQUE: Chest, one view. FINDINGS: Examination limited by habitus and patient obliquity. LUNGS: Moderate pulmonary venous congestion. No focal consolidation. Please note that chest x-ray has limited sensitivity for the detection of pulmonary masses. PLEURA: No significant pleural effusion identified. No definite pneumothorax . CARDIOVASCULAR: Cardiomegaly. Atherosclerotic calcifications present. OSSEOUS STRUCTURES: No acute osseous abnormality identified. VISUALIZED UPPER ABDOMEN: Unremarkable. OTHER FINDINGS: None. IMPRESSION: Moderate pulmonary venous congestion. Cardiomegaly.
--- NOTE | 2018-10-09 10:26 | RAD ---
HISTORY: chf COMPARISON: Chest x-ray performed 10/08/18 TECHNIQUE: Chest, one view. FINDINGS: Examination limited by habitus and hypoinflation. LUNGS: Central vascular and moderate pulmonary venous congestion. Please note that chest x-ray has limited sensitivity for the detection of pulmonary masses. PLEURA: No significant pleural effusion identified. No definite pneumothorax . CARDIOVASCULAR: The cardiomediastinal silhouette appears enlarged. Atherosclerotic calcifications. OSSEOUS STRUCTURES: Degenerative changes. VISUALIZED UPPER ABDOMEN: Unremarkable. OTHER FINDINGS: None. IMPRESSION: Central vascular moderate pulmonary venous congestion. Cardiomegaly. Ectatic aorta.
--- NOTE | 2018-10-09 12:31 | CP.PCM.CON ---
History of Present Illness - History of Present Illness History of Present Illness: 67 M with h/o DM, htn, stroke 3 yrs back, denies residual weakness, came to hospital with c/o sob, 2nd visit in 2 days with worsening symptoms, he was very hypertensive, found to be in CHF was started on diuresis, nitrodrip, bipap and home meds. SOB, CXR improved along with improvement in BP over night. This morning still c/o some sob, denied CP, but also mentioned has been dizzy off and on and will sway to the left side. PMH above PSH as above Allergies NKDA Family history not cotributory Meds reviewed and has been reordered in hospital Review of Systems - Review of Systems All systems: reviewed and no additional remarkable complaints except (HPI) Past Patient History - Infectious Disease Hx of Infectious Diseases: None - Past Medical History & Family History Past Medical History?: Yes - Past Social History Smoking Status: Unknown If Ever Smoked Alcohol: None Drugs: Denies Home Situation {Lives}: With Family Domestic Violence: Negative - CARDIAC Hx Hypercholesterolemia: Yes Hx Hypertension: Yes - PULMONARY Hx Respiratory Disorders: No - ENDOCRINE/METABOLIC Hx Endocrine Disorders: Yes Hx Diabetes Mellitus Type 1: Yes - MUSCULOSKELETAL/RHEUMATOLOGICAL Hx Falls: No - PSYCHIATRIC Hx Substance Use: No - SURGICAL HISTORY Hx Surgeries: No Other/Comment: foot surgery - ANESTHESIA Hx Anesthesia: Yes Hx Anesthesia Reactions: No Hx Malignant Hyperthermia: No Meds Allergies/Adverse Reactions: Allergies Allergy/AdvReac Type Severity Reaction Status Date / Time No Known Allergies Allergy Verified 10/08/18 21:27 - Medications Medications: Current Medications Aspirin (Aspirin) 325 mg PO DAILY [facility] Last Admin: 10/09/18 09:44 Dose: 325 mg Carvedilol (Coreg) 3.125 mg PO BID [facility] Last Admin: 10/09/18 09:46 Dose: 3.125 mg Furosemide (Lasix) 40 mg IVP Q12 [facility] Last Admin: 10/09/18 09:47 Dose: 40 mg Gabapentin (Neurontin) 100 mg PO BID [facility] Last Admin: 10/09/18 09:46 Dose: 100 mg Glipizide (Glucotrol) 10 mg PO BID [facility] Last Admin: 10/09/18 09:46 Dose: 10 mg Heparin Sodium (Porcine) (Heparin) 5,000 units SC Q8 [facility] Last Admin: 10/09/18 06:18 Dose: 5,000 units Nitroglycerin/Dextrose (Nitroglycerin 50 Mg/250 Ml D5w) 50 mg in 250 mls @ 1.5 mls/hr IV .Q24H [facility]; Protocol Last Titration: 10/09/18 10:40 Dose: 20 mcg/min, 6 mls/hr Insulin Glargine (Lantus) 30 unit SC HS [facility] Insulin Human Regular (Novolin R) 0 unit SC ACHS [facility]; Protocol Last Admin: 10/09/18 12:09 Dose: 6 u Lisinopril (Zestril) 20 mg PO DAILY [facility] Last Admin: 10/09/18 09:46 Dose: 20 mg Pantoprazole Sodium (Protonix Inj) 40 mg IVP DAILY [facility] Last Admin: 10/09/18 09:47 Dose: 40 mg Rosuvastatin Calcium (Crestor) 5 mg PO HS [facility] Sitagliptin Phosphate (Januvia) 100 mg PO DAILY [facility] Last Admin: 10/09/18 09:46 Dose: 100 mg Physical Exam - Additional Findings Additional findings: * HEENT MELVI * Neck supple * Chest scattered rales and ronchi * PA soft, nt bs present * ext no edema * Skin normal turgor * [employer]IST[employer] intention tremors noticed all 4 ext suggesting cerebellar lesion, wide gait, no sensory or motor strength deficit * Results - Vital Signs Recent Vital Signs: Last Vital Signs Temp 97.6 F 10/09/18 08:00 Pulse 113 H 10/09/18 11:00 Resp 24 10/09/18 11:00 BP 159/102 H 10/09/18 10:37 Pulse Ox 94 L 10/09/18 11:00 - Labs Result Diagrams: 10/09/18 06:10 10/09/18 06:10 Labs: Laboratory Results - last 24 hr 10/08/18 10/08/18 10/08/18 21:38 21:38 21:38 WBC 12.9 H RBC 4.93 Hgb 15.1 Hct 46.1 MCV 93.4 MCH 30.6 MCHC 32.7 L RDW 13.9 Plt Count 241 MPV 9.7 Neut % (Auto) 64.0 Lymph % (Auto) 26.3 [place] % (Auto) 7.6 Eos % (Auto) 1.3 Baso % (Auto) 0.8 Neut # (Auto) 8.3 H Lymph # (Auto) 3.4 [place] # (Auto) 1.0 H Eos # (Auto) 0.2 Baso # (Auto) 0.1 Neutrophils % (Manual) Lymphocytes % (Manual) Monocytes % (Manual) Toxic Granulation Platelet Estimate Large Platelets Polychromasia Poikilocytosis (manual Anisocytosis (manual) Ovalocytes PT 12.1 INR 1.1 APTT 34 Puncture Site pCO2 pO2 HCO3 ABG pH ABG Total CO2 ABG O2 Saturation ABG Base Excess Gucci Test ABG Potassium Glucose Lactate Liter Flow Sodium 138 Potassium 4.1 Chloride 99 Carbon Dioxide 28 Anion Gap 15 BUN 18 Creatinine 0.9 Est GFR ( Amer) > 60 Est GFR (Non-Af Amer) > 60 Random Glucose 273 H Calcium 8.5 L Total Bilirubin 0.9 AST 41 ALT 58 Alkaline Phosphatase 76 Total Creatine Kinase CK-MB (Mass) Troponin I 0.0130 NT-Pro-B Natriuret Pep 413 Total Protein 7.5 Albumin 4.6 Globulin 2.9 Albumin/Globulin Ratio 1.6 Arterial Blood Potassium Urine Color Urine Clarity Urine pH Ur Specific [place] Urine Protein Urine Glucose (UA) Urine Ketones Urine Blood Urine Nitrate Urine Bilirubin Urine Urobilinogen Ur Leukocyte Esterase Urine WBC (Auto) 10/08/18 10/08/18 10/09/18 21:50 23:10 06:10 WBC 9.1 RBC 4.24 L Hgb 13.3 Hct 39.0 MCV 91.9 MCH 31.3 H MCHC 34.0 RDW 13.6 Plt Count 223 MPV 10.2 Neut % (Auto) 89.7 H Lymph % (Auto) 8.9 L [place] % (Auto) 1.3 Eos % (Auto) 0.0 Baso % (Auto) 0.1 Neut # (Auto) 8.2 H Lymph # (Auto) 0.8 L [place] # (Auto) 0.1 Eos # (Auto) 0.0 Baso # (Auto) 0.0 Neutrophils % (Manual) 91 H Lymphocytes % (Manual) 8 L Monocytes % (Manual) 1 Toxic Granulation Present Platelet Estimate Normal Large Platelets Present Polychromasia Slight Poikilocytosis (manual Slight Anisocytosis (manual) Slight Ovalocytes Slight PT INR APTT Puncture Site Rra pCO2 47 H pO2 102 H HCO3 24.3 ABG pH 7.34 L ABG Total CO2 26.8 ABG O2 Saturation 96.8 ABG Base Excess -0.8 Gucci Test Pos ABG Potassium 3.8 Glucose 284 H Lactate 1.7 Liter Flow 12.0 Sodium 136.0 Potassium Chloride 102.0 Carbon Dioxide Anion Gap BUN Creatinine Est GFR ( Amer) Est GFR (Non-Af Amer) Random Glucose Calcium Total Bilirubin AST ALT Alkaline Phosphatase Total Creatine Kinase CK-MB (Mass) Troponin I NT-Pro-B Natriuret Pep Total Protein Albumin Globulin Albumin/Globulin Ratio Arterial Blood Potassium 3.8 Urine Color Straw Urine Clarity Clear Urine pH 5.0 Ur Specific [place] 1.010 Urine Protein 2+ H Urine Glucose (UA) 2+ H Urine Ketones Negative Urine Blood Negative Urine Nitrate Negative Urine Bilirubin Negative Urine Urobilinogen Normal Ur Leukocyte Esterase Neg Urine WBC (Auto) < 1 10/09/18 06:10 WBC RBC Hgb Hct MCV MCH MCHC RDW Plt Count MPV Neut % (Auto) Lymph % (Auto) [place] % (Auto) Eos % (Auto) Baso % (Auto) Neut # (Auto) Lymph # (Auto) [place] # (Auto) Eos # (Auto) Baso # (Auto) Neutrophils % (Manual) Lymphocytes % (Manual) Monocytes % (Manual) Toxic Granulation Platelet Estimate Large Platelets Polychromasia Poikilocytosis (manual Anisocytosis (manual) Ovalocytes PT INR APTT Puncture Site pCO2 pO2 HCO3 ABG pH ABG Total CO2 ABG O2 Saturation ABG Base Excess Gucci Test ABG Potassium Glucose Lactate Liter Flow Sodium 135 Potassium 3.8 Chloride 98 Carbon Dioxide 26 Anion Gap 15 BUN 22 H Creatinine 0.8 Est GFR ( Amer) > 60 Est GFR (Non-Af Amer) > 60 Random Glucose 389 H D Calcium 8.1 L Total Bilirubin 1.1 AST 29 ALT 52 Alkaline Phosphatase 66 Total Creatine Kinase 119 CK-MB (Mass) 2.47 Troponin I < 0.0120 NT-Pro-B Natriuret Pep Total Protein 6.6 Albumin 3.9 Globulin 2.7 Albumin/Globulin Ratio 1.4 Arterial Blood Potassium Urine Color Urine Clarity Urine pH Ur Specific [place] Urine Protein Urine Glucose (UA) Urine Ketones Urine Blood Urine Nitrate Urine Bilirubin Urine Urobilinogen Ur Leukocyte Esterase Urine WBC (Auto) Assessment & Plan - Assessment and Plan (Free Text) Assessment: * HTN urgency * Flash pulm edema * Cerebellar tremors ? new stroke awaiting reading, may need MRI to confirm * Uncontrolled DM * H/o stroke and CAD Plan: * Control BP * Diuresis PRN * MRI brain * ASA * Home meds * GI/DVT prophylaxis * See orders for detail.
--- NOTE | 2018-10-09 12:38 | CT ---
Date of service: 10/09/2018 PROCEDURE: CT HEAD WITHOUT CONTRAST. HISTORY: htn, cerebellar tremors COMPARISON: Noncontrast head CT performed 08/23/18 TECHNIQUE: Axial computed tomography images were obtained through the head/brain without intravenous contrast. Radiation dose: Total exam DLP = 1232.11 mGy-cm. This CT exam was performed using one or more of the following dose reduction techniques: Automated exposure control, adjustment of the mA and/or kV according to patient size, and/or use of iterative reconstruction technique. FINDINGS: Streak artifact obscures of skull base. HEMORRHAGE: No intracranial hemorrhage. BRAIN: Diffuse atrophy with prominence of the ventricles and sulci noted. No mass effect or edema. Intracranial atherosclerosis Scattered white matter hypodensities, which are nonspecific, but often seen with chronic microvascular ischemic disease. Please note that MRI with diffusion imaging is more sensitive in the detection of acute ischemic event. VENTRICLES: No hydrocephalus. 1 x 1 cm peripherally calcified cystic lesion in the right frontal horn lateral ventricle similar in appearance to MRI performed 08/07/16. CALVARIUM: Unremarkable. PARANASAL SINUSES: Unremarkable as visualized. No significant inflammatory changes. MASTOID AIR CELLS: Unremarkable as visualized. No inflammatory changes. OTHER FINDINGS: None. IMPRESSION: Moderate nonspecific white matter changes. Please note that MRI with diffusion imaging is more sensitive in the detection of acute ischemic event. Stable appearing peripherally calcified cystic lesion in the right frontal horn lateral ventricle. Post infectious/postinflammatory etiologies favored.
--- NOTE | 2018-10-09 19:15 | CP.PCM.CON ---
History of Present Illness - History of Present Illness History of Present Illness: 67 y/o male with a PMHx of HTN and CAD, returns to the ED complaining of SOB, worsening since yesterday. Patient was seen here yesterday for similar complaint. States SOB has progressively worsened since leaving the hospital yesterday. No chest pain or palpitations. On arrival patients O2 sat is 87% on RA. Patient placed on bipap, reports improvement. Otherwise he denies any nausea, vomiting, fever, chills, sweats, abdominal pain, numbness, weakness, or dizziness. Chief Complaint (Nursing): Shortness Of Breath History Per: Patient History/Exam Limitations: no limitations Onset/Duration Of Symptoms: Days (x2) Current Symptoms Are (Timing): Worse Initiating Event: Upper Respiratory Illness Quality: denies: Sharp Exacerbating Factor(s): Exertion, Coughing Current Respiratory Medications: See Home Med List Severity: Severe Pain Scale Rating Of: 8 Associated Symptoms: denies: Fever, Chills, Chest Pain Reports Recently: Seen In ED, Treated By A Physician Recent travel outside of the [place]: No Additional History Per: Patient Past Medical History Reviewed: Historical Data, Nursing Documentation, Vital Signs Vital Signs: Last Vital Signs Temp 97.9 F 10/08/18 21:22 Pulse 106 H 10/08/18 21:22 Resp 28 H 10/08/18 21:22 BP 209/122 H 10/08/18 21:22 Pulse Ox 87 L 10/08/18 21:22 - Medical History PMH: CAD, Depression, Diabetes, HTN, Hypercholesterolemia - [facility] Procedures DRAINAGE OF RIGHT FOOT SKIN, EXTERNAL APPROACH (06/13/17) TETANUS TOXOID ADMINIST (06/06/13) Family History: States: No Known Family Hx - Social History Hx Tobacco Use: No Hx Alcohol Use: No Hx Substance Use: No - Immunization History Hx Tetanus Toxoid Vaccination: No Hx Influenza Vaccination: No Hx Pneumococcal Vaccination: No Review Of Systems Constitutional: Negative for: Fever, Chills Eyes: Negative for: Redness ENT: Negative for: Throat Pain Cardiovascular: Negative for: Chest Pain, Palpitations Respiratory: Positive for: Shortness of Breath, SOB with Excertion, Wheezing Gastrointestinal: Negative for: Nausea, Vomiting, Abdominal Pain Genitourinary: Negative for: Dysuria Musculoskeletal: Negative for: Back Pain Skin: Negative for: Rash Neurological: Negative for: Weakness, Numbness, Dizziness Psych: Negative for: Anxiety Physical Exam - Physical Exam Appears: In Acute Distress (moderate respiratory distress) Skin: Warm, Dry Head: Normacephalic Eye(s): bilateral: Normal Inspection Oral Mucosa: Dry Teeth: Normal Dentition Neck: Trachea Midline, Supple Chest: Symmetrical Cardiovascular: Rhythm Regular (but Tachycardic) Respiratory: Decreased Breath Sounds, Rales (few at bases), Rhonchi, No Wheezing Gastrointestinal/Abdominal: Soft, No Tenderness, No Distention Back: Normal Inspection Extremity: Normal ROM, Pedal Edema (trace), No Deformity Extremity: Bilateral: Normal Color And Temperature, Normal ROM Pulses: Left Dorsalis Pedis: Normal, Right Dorsalis Pedis: Normal Neurological/Psych: Oriented x3 Gait: Steady Past Patient History - Infectious Disease Hx of Infectious Diseases: None - Past Medical History & Family History Past Medical History?: Yes - Past Social History Smoking Status: Unknown If Ever Smoked Alcohol: None Drugs: Denies Home Situation {Lives}: With Family Domestic Violence: Negative - CARDIAC Hx Hypercholesterolemia: Yes Hx Hypertension: Yes - PULMONARY Hx Respiratory Disorders: No - ENDOCRINE/METABOLIC Hx Endocrine Disorders: Yes Hx Diabetes Mellitus Type 1: Yes - MUSCULOSKELETAL/RHEUMATOLOGICAL Hx Falls: No - PSYCHIATRIC Hx Substance Use: No - SURGICAL HISTORY Hx Surgeries: No Other/Comment: foot surgery - ANESTHESIA Hx Anesthesia: Yes Hx Anesthesia Reactions: No Hx Malignant Hyperthermia: No Meds Allergies/Adverse Reactions: Allergies Allergy/AdvReac Type Severity Reaction Status Date / Time No Known Allergies Allergy Verified 10/08/18 21:27 - Medications Medications: Current Medications Aspirin (Aspirin) 325 mg PO DAILY [facility] Last Admin: 10/09/18 09:44 Dose: 325 mg Carvedilol (Coreg) 3.125 mg PO BID [facility] Last Admin: 10/09/18 17:39 Dose: 3.125 mg Furosemide (Lasix) 40 mg IVP Q12 [facility] Last Admin: 10/09/18 09:47 Dose: 40 mg Gabapentin (Neurontin) 100 mg PO BID [facility] Last Admin: 10/09/18 17:39 Dose: 100 mg Glipizide (Glucotrol) 10 mg PO BID [facility] Last Admin: 10/09/18 17:39 Dose: 10 mg Heparin Sodium (Porcine) (Heparin) 5,000 units SC Q8 [facility] Last Admin: 10/09/18 14:45 Dose: 5,000 units Nitroglycerin/Dextrose (Nitroglycerin 50 Mg/250 Ml D5w) 50 mg in 250 mls @ 1.5 mls/hr IV .Q24H [facility]; Protocol Last Titration: 10/09/18 15:15 Dose: 20 mcg/min, 6 mls/hr Insulin Glargine (Lantus) 30 unit SC HS [facility] Insulin Human Regular (Novolin R) 0 unit SC ACHS [facility]; Protocol Last Admin: 10/09/18 16:24 Dose: 6 u Lisinopril (Zestril) 20 mg PO DAILY [facility] Last Admin: 10/09/18 09:46 Dose: 20 mg Pantoprazole Sodium (Protonix Inj) 40 mg IVP DAILY [facility] Last Admin: 10/09/18 09:47 Dose: 40 mg Rosuvastatin Calcium (Crestor) 5 mg PO [facility] Sitagliptin Phosphate (Januvia) 100 mg PO DAILY [facility] Last Admin: 10/09/18 09:46 Dose: 100 mg Results - Vital Signs Recent Vital Signs: Last Vital Signs Temp 98.6 F 10/09/18 16:00 Pulse 96 H 10/09/18 19:00 Resp 22 10/09/18 19:00 BP 119/73 10/09/18 18:34 Pulse Ox 95 10/09/18 19:00 - Labs Result Diagrams: 10/09/18 06:10 10/09/18 06:10 Labs: Laboratory Results - last 24 hr 10/08/18 10/08/18 10/08/18 21:38 21:38 21:38 WBC 12.9 H RBC 4.93 Hgb 15.1 Hct 46.1 MCV 93.4 MCH 30.6 MCHC 32.7 L RDW 13.9 Plt Count 241 MPV 9.7 Neut % (Auto) 64.0 Lymph % (Auto) 26.3 [place] % (Auto) 7.6 Eos % (Auto) 1.3 Baso % (Auto) 0.8 Neut # (Auto) 8.3 H Lymph # (Auto) 3.4 [place] # (Auto) 1.0 H Eos # (Auto) 0.2 Baso # (Auto) 0.1 Neutrophils % (Manual) Lymphocytes % (Manual) Monocytes % (Manual) Toxic Granulation Platelet Estimate Large Platelets Polychromasia Poikilocytosis (manual Anisocytosis (manual) Ovalocytes PT 12.1 INR 1.1 APTT 34 Puncture Site pCO2 pO2 HCO3 ABG pH ABG Total CO2 ABG O2 Saturation ABG Base Excess Gucci Test ABG Potassium Glucose Lactate Liter Flow Sodium 138 Potassium 4.1 Chloride 99 Carbon Dioxide 28 Anion Gap 15 BUN 18 Creatinine 0.9 Est GFR ( Amer) > 60 Est GFR (Non-Af Amer) > 60 POC Glucose (mg/dL) Random Glucose 273 H Calcium 8.5 L Total Bilirubin 0.9 AST 41 ALT 58 Alkaline Phosphatase 76 Total Creatine Kinase CK-MB (Mass) Troponin I 0.0130 NT-Pro-B Natriuret Pep 413 Total Protein 7.5 Albumin 4.6 Globulin 2.9 Albumin/Globulin Ratio 1.6 Procalcitonin Arterial Blood Potassium Urine Color Urine Clarity Urine pH Ur Specific [place] Urine Protein Urine Glucose (UA) Urine Ketones Urine Blood Urine Nitrate Urine Bilirubin Urine Urobilinogen Ur Leukocyte Esterase Urine WBC (Auto) 10/08/18 10/08/18 10/09/18 21:50 23:10 06:10 WBC 9.1 RBC 4.24 L Hgb 13.3 Hct 39.0 MCV 91.9 MCH 31.3 H MCHC 34.0 RDW 13.6 Plt Count 223 MPV 10.2 Neut % (Auto) 89.7 H Lymph % (Auto) 8.9 L [place] % (Auto) 1.3 Eos % (Auto) 0.0 Baso % (Auto) 0.1 Neut # (Auto) 8.2 H Lymph # (Auto) 0.8 L [place] # (Auto) 0.1 Eos # (Auto) 0.0 Baso # (Auto) 0.0 Neutrophils % (Manual) 91 H Lymphocytes % (Manual) 8 L Monocytes % (Manual) 1 Toxic Granulation Present Platelet Estimate Normal Large Platelets Present Polychromasia Slight Poikilocytosis (manual Slight Anisocytosis (manual) Slight Ovalocytes Slight PT INR APTT Puncture Site Rra pCO2 47 H pO2 102 H HCO3 24.3 ABG pH 7.34 L ABG Total CO2 26.8 ABG O2 Saturation 96.8 ABG Base Excess -0.8 Gucci Test Pos ABG Potassium 3.8 Glucose 284 H Lactate 1.7 Liter Flow 12.0 Sodium 136.0 Potassium Chloride 102.0 Carbon Dioxide Anion Gap BUN Creatinine Est GFR ( Amer) Est GFR (Non-Af Amer) POC Glucose (mg/dL) Random Glucose Calcium Total Bilirubin AST ALT Alkaline Phosphatase Total Creatine Kinase CK-MB (Mass) Troponin I NT-Pro-B Natriuret Pep Total Protein Albumin Globulin Albumin/Globulin Ratio Procalcitonin Arterial Blood Potassium 3.8 Urine Color Straw Urine Clarity Clear Urine pH 5.0 Ur Specific [place] 1.010 Urine Protein 2+ H Urine Glucose (UA) 2+ H Urine Ketones Negative Urine Blood Negative Urine Nitrate Negative Urine Bilirubin Negative Urine Urobilinogen Normal Ur Leukocyte Esterase Neg Urine WBC (Auto) < 1 10/09/18 10/09/18 10/09/18 06:10 07:21 08:00 WBC RBC Hgb Hct MCV MCH MCHC RDW Plt Count MPV Neut % (Auto) Lymph % (Auto) [place] % (Auto) Eos % (Auto) Baso % (Auto) Neut # (Auto) Lymph # (Auto) [place] # (Auto) Eos # (Auto) Baso # (Auto) Neutrophils % (Manual) Lymphocytes % (Manual) Monocytes % (Manual) Toxic Granulation Platelet Estimate Large Platelets Polychromasia Poikilocytosis (manual Anisocytosis (manual) Ovalocytes PT INR APTT Puncture Site pCO2 pO2 HCO3 ABG pH ABG Total CO2 ABG O2 Saturation ABG Base Excess Gucci Test ABG Potassium Glucose Lactate Liter Flow Sodium 135 Potassium 3.8 Chloride 98 Carbon Dioxide 26 Anion Gap 15 BUN 22 H Creatinine 0.8 Est GFR ( Amer) > 60 Est GFR (Non-Af Amer) > 60 POC Glucose (mg/dL) 370 H Random Glucose 389 H D Calcium 8.1 L Total Bilirubin 1.1 AST 29 ALT 52 Alkaline Phosphatase 66 Total Creatine Kinase 119 CK-MB (Mass) 2.47 Troponin I < 0.0120 NT-Pro-B Natriuret Pep Total Protein 6.6 Albumin 3.9 Globulin 2.7 Albumin/Globulin Ratio 1.4 Procalcitonin 0.05 L Arterial Blood Potassium Urine Color Urine Clarity Urine pH Ur Specific [place] Urine Protein Urine Glucose (UA) Urine Ketones Urine Blood Urine Nitrate Urine Bilirubin Urine Urobilinogen Ur Leukocyte Esterase Urine WBC (Auto) 10/09/18 10/09/18 11:33 16:06 WBC RBC Hgb Hct MCV MCH MCHC RDW Plt Count MPV Neut % (Auto) Lymph % (Auto) [place] % (Auto) Eos % (Auto) Baso % (Auto) Neut # (Auto) Lymph # (Auto) [place] # (Auto) Eos # (Auto) Baso # (Auto) Neutrophils % (Manual) Lymphocytes % (Manual) Monocytes % (Manual) Toxic Granulation Platelet Estimate Large Platelets Polychromasia Poikilocytosis (manual Anisocytosis (manual) Ovalocytes PT INR APTT Puncture Site pCO2 pO2 HCO3 ABG pH ABG Total CO2 ABG O2 Saturation ABG Base Excess Gucci Test ABG Potassium Glucose Lactate Liter Flow Sodium Potassium Chloride Carbon Dioxide Anion Gap BUN Creatinine Est GFR ( Amer) Est GFR (Non-Af Amer) POC Glucose (mg/dL) 482 H* 402 H* Random Glucose Calcium Total Bilirubin AST ALT Alkaline Phosphatase Total Creatine Kinase CK-MB (Mass) Troponin I NT-Pro-B Natriuret Pep Total Protein Albumin Globulin Albumin/Globulin Ratio Procalcitonin Arterial Blood Potassium Urine Color Urine Clarity Urine pH Ur Specific [place] Urine Protein Urine Glucose (UA) Urine Ketones Urine Blood Urine Nitrate Urine Bilirubin Urine Urobilinogen Ur Leukocyte Esterase Urine WBC (Auto) Assessment & Plan - Assessment and Plan (Free Text) Assessment: HTN urgency * Flash pulm edema * Cerebellar tremors ? new stroke awaiting reading, may need MRI to confirm * Uncontrolled DM * H/o stroke and CAD Plan: * Control BP * Diuresis PRN * MRI brain * ASA * Home meds * GI/DVT prophylaxis
[2018-10-09] MEDS: (Lantus) Insulin Glargine, Recombinant SC SCH (21:43)
[2018-10-10 06:05] LABS: BASO # 0.1 K/uL (0.0-0.2); BASO % 0.5 % (0.0-2.0); EOS # 0.1 K/uL (0.0-0.7); EOS % 0.4 % (0.0-4.0); HEMOGLOBIN 13.4 g/dL (12.0-18.0); LYMPH # 2.7 K/uL (1.0-4.3); LYMPH % 19.7 % (20.0-40.0); MEAN CELL VOLUME 92.4 fL (80.0-94.0); MEAN CORPUSCULAR HGB CONC 33.5 g/dL (33.0-37.0); MEAN PLATELET VOLUME 10.5 fL (7.2-11.7); MONO % 7.7 % (0.0-10.0); NEUT # 9.7 K/uL (1.8-7.0); NEUT % 71.7 % (50.0-75.0); RBC 4.31 Mil/uL (4.40-5.90); RED CELL DISTRIBUTION WIDTH 13.8 % (11.5-14.5); WHITE BLOOD COUNT 13.5 K/uL (4.8-10.8)
[2018-10-10 06:24] LABS: ALB/GLOB RATIO 1.4 (1.0-2.1); ALBUMIN 3.5 g/dL (3.5-5.0); ALT/SGPT 49 U/L (21-72); AST/SGOT 25 U/L (17-59); BILIRUBIN,DIRECT 0.5 mg/dL (0.0-0.4); BLOOD UREA NITROGEN 30 mg/dL (9-20); CALCIUM 7.1 mg/dl (8.6-10.4); GFR NON-AFRICAN AMERICAN > 60
[2018-10-10] MEDS: (Novolin R) Insulin Human Regular 100 units/ml vial SC SCH ×4 (07:52→22:00)
[2018-10-10] MEDS ORDERED: Potassium Chloride 20 mEq ER Tab PO ONE (08:00)
[2018-10-10] MEDS ORDERED: Potassium Chloride 20 mEq ER Tab PO SCH (10:00)
[2018-10-10] MEDS: Pantoprazole 40 mg EC Tab PO SCH (10:10)
--- NOTE | 2018-10-10 10:23 | CP.CCUPN ---
CCU Subjective - Physician Review Subjective (Free Text): 10/10/18 10:20 ICU Progress Note for Dr. Linder Patient seen and examined at bedside this morning. He denies CP, n/v/d, abdominal pain. He was sitting and eating breakfast in no acute distress. SOB improves with 4L NC, patient with adequate O2 sat. Patient stable to be downgraded to telemetry. Due to patient's history of stroke and documentation of cerebellar tremors, we consulted neurology before signing off. Patient will possibly need MRI brain. Will appreciate neuro recommendations. Case discussed with Dr. Niyah Clark PGY1 CCU Objective - Vital Signs / Intake & Output Vital Signs (Last 4 hours): Vital Signs Temp Pulse Resp BP Pulse Ox 10/10/18 10:19 154/103 H 10/10/18 08:34 90 16 139/99 H 98 10/10/18 08:00 98.4 F 89 22 149/96 H 96 10/10/18 07:34 89 20 149/96 H 96 10/10/18 07:33 89 19 151/100 H 97 10/10/18 07:00 91 H 13 96 10/10/18 06:34 87 17 125/84 95 Intake and Output (Last 8hrs): Intake & Output 10/09/18 10/10/18 10/10/18 22:59 06:59 14:59 Intake Total 703 240 0 Output Total 500 850 0 Balance 203 -610 0 Weight 187 lb Intake: IV 30 Intake, IV Amount 33 0 0 Left Antecubital 33 0 0 Oral 640 240 0 Output: Urine 500 850 Urine, Voided 500 850 Emesis 0 0 0 Other: # Voids Urine, Voided 0 0 0 # Bowel Movements 0 0 0 - Medications Active Medications: Active Medications Generic Name Dose Route Start Last Admin Trade Name Freq PRN Reason Stop Dose Admin Aspirin 325 mg 10/09/18 10:00 10/10/18 10:10 Aspirin PO 325 mg DAILY [facility]ATT Administration Carvedilol 3.125 mg 10/09/18 10:00 10/10/18 10:10 Coreg PO 3.125 mg BID MATT Administration Furosemide 40 mg 10/10/18 10:00 10/10/18 10:19 Lasix IVP 40 mg DAILY [facility] Administration Gabapentin 100 mg 10/09/18 10:00 10/10/18 10:10 Neurontin PO 100 mg BID [facility] Administration Glipizide 10 mg 10/09/18 10:00 10/10/18 10:10 Glucotrol PO 10 mg BID [facility] Administration Heparin Sodium (Porcine) 5,000 units 10/09/18 06:00 10/10/18 05:00 Heparin SC 5,000 units Q8 [facility] Administration Insulin Glargine 30 unit 10/09/18 22:00 10/09/18 21:43 Lantus SC 30 units HS [facility]ATT Administration Insulin Human Regular 0 unit 10/10/18 07:30 10/10/18 07:52 Novolin R SC 4 u ACHS MATT Administration Protocol Lisinopril 20 mg 10/09/18 10:00 10/10/18 10:14 Zestril PO 20 mg DAILY [facility] Administration Pantoprazole Sodium 40 mg 10/10/18 10:00 10/10/18 10:10 Protonix Ec Tab PO 40 mg DAILY [facility] Administration Rosuvastatin Calcium 5 mg 10/09/18 22:00 10/09/18 21:43 Crestor PO 5 mg HS [facility]ATT Administration Sitagliptin Phosphate 100 mg 10/09/18 10:00 10/10/18 10:10 Januvia PO 100 mg DAILY [facility] Administration - Patient Studies Lab Studies: Microbiology Studies 10/08/18 22:04 Blood Culture - Preliminary Blood NO GROWTH AFTER 24 HOURS 10/08/18 21:30 Blood Culture - Preliminary Blood NO GROWTH AFTER 24 HOURS Lab Studies 10/10/18 10/10/18 10/10/18 Range/Units 07:30 05:52 05:52 WBC (4.8-10.8) K/uL RBC (4.40-5.90) Mil/uL Hgb (12.0-18.0) g/dL Hct (35.0-51.0) % MCV (80.0-94.0) fL MCH (27.0-31.0) pg MCHC (33.0-37.0) g/dL RDW (11.5-14.5) % Plt Count (130-400) K/uL MPV (7.2-11.7) fL Neut % (Auto) (50.0-75.0) % Lymph % (Auto) (20.0-40.0) % [place] % (Auto) (0.0-10.0) % Eos % (Auto) (0.0-4.0) % Baso % (Auto) (0.0-2.0) % Neut # (Auto) (1.8-7.0) K/uL Lymph # (Auto) (1.0-4.3) K/uL [place] # (Auto) (0.0-0.8) K/uL Eos # (Auto) (0.0-0.7) K/uL Baso # (Auto) (0.0-0.2) K/uL Sodium 135 (132-148) mmol/L Potassium 3.4 L (3.6-5.2) mmol/L Chloride 100 (98-107) mmol/L Carbon Dioxide 27 (22-30) mmol/L Anion Gap 11 (10-20) BUN 30 H (9-20) mg/dL Creatinine 1.0 (0.8-1.5) mg/dL Est GFR ( Amer) > 60 Est GFR (Non-Af Amer) > 60 POC Glucose (mg/dL) 268 H (65-110) mg/dL Random Glucose 263 H D (75-110) mg/dL Hemoglobin A1c 9.3 H (4.2-6.5) % Calcium 7.1 L (8.6-10.4) mg/dl Phosphorus 3.1 (2.5-4.5) mg/dL Magnesium 1.8 (1.6-2.3) mg/dL Total Bilirubin 0.9 (0.2-1.3) mg/dL Direct Bilirubin 0.5 H (0.0-0.4) mg/dL AST 25 (17-59) U/L ALT 49 (21-72) U/L Alkaline Phosphatase 52 (38-126) U/L Total Protein 5.9 L (6.3-8.3) g/dL Albumin 3.5 (3.5-5.0) g/dL Globulin 2.4 (2.2-3.9) gm/dL Albumin/Globulin Ratio 1.4 (1.0-2.1) Procalcitonin (0.19-0.49) NG/ML 10/10/18 10/09/18 10/09/18 Range/Units 05:52 21:06 16:06 WBC 13.5 H (4.8-10.8) K/uL RBC 4.31 L (4.40-5.90) Mil/uL Hgb 13.4 (12.0-18.0) g/dL Hct 39.9 (35.0-51.0) % MCV 92.4 (80.0-94.0) fL MCH 31.0 (27.0-31.0) pg MCHC 33.5 (33.0-37.0) g/dL RDW 13.8 (11.5-14.5) % Plt Count 235 (130-400) K/uL MPV 10.5 (7.2-11.7) fL Neut % (Auto) 71.7 (50.0-75.0) % Lymph % (Auto) 19.7 L (20.0-40.0) % [place] % (Auto) 7.7 (0.0-10.0) % Eos % (Auto) 0.4 (0.0-4.0) % Baso % (Auto) 0.5 (0.0-2.0) % Neut # (Auto) 9.7 H (1.8-7.0) K/uL Lymph # (Auto) 2.7 (1.0-4.3) K/uL [place] # (Auto) 1.0 H (0.0-0.8) K/uL Eos # (Auto) 0.1 (0.0-0.7) K/uL Baso # (Auto) 0.1 (0.0-0.2) K/uL Sodium (132-148) mmol/L Potassium (3.6-5.2) mmol/L Chloride (98-107) mmol/L Carbon Dioxide (22-30) mmol/L Anion Gap (10-20) BUN (9-20) mg/dL Creatinine (0.8-1.5) mg/dL Est GFR ( Amer) Est GFR (Non-Af Amer) POC Glucose (mg/dL) 281 H 402 H* (65-110) mg/dL Random Glucose (75-110) mg/dL Hemoglobin A1c (4.2-6.5) % Calcium (8.6-10.4) mg/dl Phosphorus (2.5-4.5) mg/dL Magnesium (1.6-2.3) mg/dL Total Bilirubin (0.2-1.3) mg/dL Direct Bilirubin (0.0-0.4) mg/dL AST (17-59) U/L ALT (21-72) U/L Alkaline Phosphatase (38-126) U/L Total Protein (6.3-8.3) g/dL Albumin (3.5-5.0) g/dL Globulin (2.2-3.9) gm/dL Albumin/Globulin Ratio (1.0-2.1) Procalcitonin (0.19-0.49) NG/ML 10/09/18 10/09/18 10/09/18 Range/Units 11:33 08:00 07:21 WBC (4.8-10.8) K/uL RBC (4.40-5.90) Mil/uL Hgb (12.0-18.0) g/dL Hct (35.0-51.0) % MCV (80.0-94.0) fL MCH (27.0-31.0) pg MCHC (33.0-37.0) g/dL RDW (11.5-14.5) % Plt Count (130-400) K/uL MPV (7.2-11.7) fL Neut % (Auto) (50.0-75.0) % Lymph % (Auto) (20.0-40.0) % [place] % (Auto) (0.0-10.0) % Eos % (Auto) (0.0-4.0) % Baso % (Auto) (0.0-2.0) % Neut # (Auto) (1.8-7.0) K/uL Lymph # (Auto) (1.0-4.3) K/uL [place] # (Auto) (0.0-0.8) K/uL Eos # (Auto) (0.0-0.7) K/uL Baso # (Auto) (0.0-0.2) K/uL Sodium (132-148) mmol/L Potassium (3.6-5.2) mmol/L Chloride (98-107) mmol/L Carbon Dioxide (22-30) mmol/L Anion Gap (10-20) BUN (9-20) mg/dL Creatinine (0.8-1.5) mg/dL Est GFR ( Amer) Est GFR (Non-Af Amer) POC Glucose (mg/dL) 482 H* 370 H (65-110) mg/dL Random Glucose (75-110) mg/dL Hemoglobin A1c (4.2-6.5) % Calcium (8.6-10.4) mg/dl Phosphorus (2.5-4.5) mg/dL Magnesium (1.6-2.3) mg/dL Total Bilirubin (0.2-1.3) mg/dL Direct Bilirubin (0.0-0.4) mg/dL AST (17-59) U/L ALT (21-72) U/L Alkaline Phosphatase (38-126) U/L Total Protein (6.3-8.3) g/dL Albumin (3.5-5.0) g/dL Globulin (2.2-3.9) gm/dL Albumin/Globulin Ratio (1.0-2.1) Procalcitonin 0.05 L (0.19-0.49) NG/ML Laboratory Results - last 24 hr 10/09/18 10/09/18 10/09/18 07:21 08:00 11:33 WBC RBC Hgb Hct MCV MCH MCHC RDW Plt Count MPV Neut % (Auto) Lymph % (Auto) [place] % (Auto) Eos % (Auto) Baso % (Auto) Neut # (Auto) Lymph # (Auto) [place] # (Auto) Eos # (Auto) Baso # (Auto) Sodium Potassium Chloride Carbon Dioxide Anion Gap BUN Creatinine Est GFR ( Amer) Est GFR (Non-Af Amer) POC Glucose (mg/dL) 370 H 482 H* Random Glucose Hemoglobin A1c Calcium Phosphorus Magnesium Total Bilirubin Direct Bilirubin AST ALT Alkaline Phosphatase Total Protein Albumin Globulin Albumin/Globulin Ratio Procalcitonin 0.05 L 10/09/18 10/09/18 10/10/18 16:06 21:06 05:52 WBC 13.5 H RBC 4.31 L Hgb 13.4 Hct 39.9 MCV 92.4 MCH 31.0 MCHC 33.5 RDW 13.8 Plt Count 235 MPV 10.5 Neut % (Auto) 71.7 Lymph % (Auto) 19.7 L [place] % (Auto) 7.7 Eos % (Auto) 0.4 Baso % (Auto) 0.5 Neut # (Auto) 9.7 H Lymph # (Auto) 2.7 [place] # (Auto) 1.0 H Eos # (Auto) 0.1 Baso # (Auto) 0.1 Sodium Potassium Chloride Carbon Dioxide Anion Gap BUN Creatinine Est GFR ( Amer) Est GFR (Non-Af Amer) POC Glucose (mg/dL) 402 H* 281 H Random Glucose Hemoglobin A1c Calcium Phosphorus Magnesium Total Bilirubin Direct Bilirubin AST ALT Alkaline Phosphatase Total Protein Albumin Globulin Albumin/Globulin Ratio Procalcitonin 10/10/18 10/10/18 10/10/18 05:52 05:52 07:30 WBC RBC Hgb Hct MCV MCH MCHC RDW Plt Count MPV Neut % (Auto) Lymph % (Auto) [place] % (Auto) Eos % (Auto) Baso % (Auto) Neut # (Auto) Lymph # (Auto) [place] # (Auto) Eos # (Auto) Baso # (Auto) Sodium 135 Potassium 3.4 L Chloride 100 Carbon Dioxide 27 Anion Gap 11 BUN 30 H Creatinine 1.0 Est GFR ( Amer) > 60 Est GFR (Non-Af Amer) > 60 POC Glucose (mg/dL) 268 H Random Glucose 263 H D Hemoglobin A1c 9.3 H Calcium 7.1 L Phosphorus 3.1 Magnesium 1.8 Total Bilirubin 0.9 Direct Bilirubin 0.5 H AST 25 ALT 49 Alkaline Phosphatase 52 Total Protein 5.9 L Albumin 3.5 Globulin 2.4 Albumin/Globulin Ratio 1.4 Procalcitonin Radiology Impressions: Radiology Impressions Chest X-Ray 10/09/18 08:58 IMPRESSION: Central vascular moderate pulmonary venous congestion. Cardiomegaly. Ectatic aorta. Head CT 10/09/18 11:37 IMPRESSION: Moderate nonspecific white matter changes. Please note that MRI with diffusion imaging is more sensitive in the detection of acute ischemic event. Stable appearing peripherally calcified cystic lesion in the right frontal horn lateral ventricle. Post infectious/postinflammatory etiologies favored. Fingerstick Blood Sugar Results: 268 Critical Care Progress Note - Nutrition Nutrition: Nutrition Category Date Time Status Heart Healthy Diet [DIET] Diets 10/08/18 Breakfast Active
--- NOTE | 2018-10-10 16:16 | CARD ---
APPROVED REPORT Date of service: 10/09/2018 EKG Measurement Heart [id number] <Conclusion> Normal sinus rhythm Nonspecific T wave abnormality Prolonged QT Abnormal ECG
--- NOTE | 2018-10-10 16:35 | CARD ---
APPROVED REPORT Date of service: 10/10/2018 EXAM: Two-dimensional and M-mode echocardiogram with Doppler and color Doppler. INDICATION Syncope RISK FACTORS Hypertension Diabetes 2D DIMENSIONS IVSd1.2 (0.7-1.1cm)Aortic Root (2D)3.4 (2.0-3.7cm) LVDd4.9 (3.9-5.9cm)PWd1.1 (0.7-1.1cm) LA Zhwzac80 (18-58mL)LVDs4.3 (2.5-4.0cm) FS (%) 11.9 %LVEF (%)25.6 (>50%) LVEF (Majano's)34.91 %IVC0.00 cm M-Mode DIMENSIONS RVDd2.34 (2.1-3.2cm)Left Atrium (MM)3.67 (2.5-4.0cm) IVSd1.56 (0.7-1.1cm)Aortic Root3.93 (2.2-3.7cm) LVDd5.31 (4.0-5.6cm)Aortic Cusp Exc.2.16 (1.5-2.0cm) PWd1.05 (0.7-1.1cm)FS (%) 17 % LVDs4.41 (2.0-3.8cm)TAPSE18.55 cm LVEF (%)35 (>50%) Aortic Valve AI P 1/2 [id number] Mitral Valve MV E Xbdpsmhj102.5cm/sMV A Tybtxlgl42.3cm/sE/A ratio1.8 MVCF038.30 cm/s TDI Lateral E' Peak V5.38cm/sMedial E' Peak V3.83cm/sE/Lateral E'20.5 E/Medial E'28.9 Tricuspid Valve TR Peak Dnbcolxj719ve/sTR Peak Gr.15nfCsEKMC18bmZs LEFT VENTRICLE The left ventricle is normal size. There is mild concentric left ventricular hypertrophy. The Ejection Fraction is 25-30%. Transmitral Doppler flow pattern is Grade II-pseudonormal filling dynamics. The left atrial pressure is moderately elevated. RIGHT VENTRICLE The right ventricle is normal size. The right ventricular systolic function is normal. ATRIA The left atrium size is normal. The right atrium size is normal. The interatrial septum is intact with no evidence for an atrial septal defect. AORTIC VALVE The aortic valve is trileaflet. There is mild aortic regurgitation. MITRAL VALVE The mitral valve is normal in structure. Mitral regurgitation is mild to moderate. TRICUSPID VALVE The tricuspid valve is normal in structure. There is mild to moderate tricuspid regurgitation. Right ventricular systolic pressure is estimated at 55 mmHg. There is moderate pulmonary hypertension. PULMONIC VALVE The pulmonary valve is normal in structure. There is trace pulmonic valvular regurgitation. GREAT VESSELS The aortic root is normal in size. Dilated IVC with poor inspiration collapse is consistent with elevated right atrial pressure. PERICARDIAL EFFUSION small posterior pericrdial effusion is noted. <Conclusion> The left ventricle is normal size. There is mild concentric left ventricular hypertrophy. The Ejection Fraction is 25-30%. Transmitral Doppler flow pattern is Grade II-pseudonormal filling dynamics. The left atrial pressure is moderately elevated. There is mild aortic regurgitation. Mitral regurgitation is mild to moderate. There is mild to moderate tricuspid regurgitation. Right ventricular systolic pressure is estimated at 55 mmHg. There is moderate pulmonary hypertension. Dilated IVC with poor inspiration collapse is consistent with elevated right atrial pressure. small posterior pericrdial effusion is noted.
--- NOTE | 2018-10-10 20:26 | CP.PCM.PN ---
Subjective - Date & Time of Evaluation Date of Evaluation: 10/10/18 Time of Evaluation: 20:25 - Subjective Subjective: Patient still having some cough. Shortness of breath noted. Seen by floater operator today. Possibly scheduled to have angiogram tomorrow. Echocardiogram showing evidence of ejection fraction is 25%. Patient is using the BiPAP at times. Clinically patient has a very poorly controlled diabetes, hypertension, hypercholesterolemia, possible underlying ischemic cardiomyopathy cannot be ruled out. Or diabetic cardiomyopathy. or associated with hypertensive cardiomyopathy. I advised the patient to continue the BiPAP, bronchodilator, Lasix and the heart failure treatment. We will follow the patient. I spoke to the patient's son, patient's in detail. Objective - Vital Signs/Intake and Output Vital Signs (last 24 hours): Temp Pulse Resp BP Pulse Ox 98.7 F 97 H 24 131/82 98 10/10/18 16:00 10/10/18 16:00 10/10/18 16:00 10/10/18 16:00 10/10/18 16:00 Intake and Output: 10/10/18 10/11/18 18:59 06:59 Intake Total 650 Output Total 1380 Balance -730 - Medications Medications: Current Medications Aspirin (Aspirin) 325 mg PO DAILY [facility] Last Admin: 10/10/18 10:10 Dose: 325 mg Carvedilol (Coreg) 3.125 mg PO BID [facility] Last Admin: 10/10/18 17:11 Dose: 3.125 mg Furosemide (Lasix) 40 mg IVP DAILY [facility] Last Admin: 10/10/18 10:19 Dose: 40 mg Gabapentin (Neurontin) 100 mg PO BID [facility] Last Admin: 10/10/18 17:11 Dose: 100 mg Glipizide (Glucotrol) 10 mg PO BID [facility] Last Admin: 10/10/18 17:11 Dose: 10 mg Heparin Sodium (Porcine) (Heparin) 5,000 units SC Q8 [facility] Last Admin: 10/10/18 14:35 Dose: 5,000 units Insulin Glargine (Lantus) 30 unit SC HS [facility] Last Admin: 10/09/18 21:43 Dose: 30 units Insulin Human Regular (Novolin R) 0 unit SC ACHS [facility]; Protocol Last Admin: 10/10/18 17:11 Dose: 6 u Lisinopril (Zestril) 20 mg PO DAILY [facility] Last Admin: 10/10/18 10:14 Dose: 20 mg Pantoprazole Sodium (Protonix Ec Tab) 40 mg PO DAILY [facility] Last Admin: 10/10/18 10:10 Dose: 40 mg Rosuvastatin Calcium (Crestor) 5 mg PO HS [facility] Last Admin: 10/09/18 21:43 Dose: 5 mg Sitagliptin Phosphate (Januvia) 100 mg PO DAILY [facility] Last Admin: 10/10/18 10:10 Dose: 100 mg - Labs Labs: 10/10/18 05:52 10/10/18 05:52 PT 12.1 SECONDS (9.7-12.2) 10/08/18 21:38 INR 1.1 10/08/18 21:38 APTT 34 SECONDS (21-34) 10/08/18 21:38
--- NOTE | 2018-10-10 21:33 | CARD ---
APPROVED REPORT Date of service: 10/08/2018 EKG Measurement Heart [id number] <Conclusion> Sinus tachycardia Possible Left atrial enlargement Abnormal QRS-T angle, consider primary T wave abnormality Abnormal ECG
[2018-10-10] MEDS: (Lantus) Insulin Glargine, Recombinant SC SCH (21:55)
--- NOTE | 2018-10-10 23:44 | CP.PCM.PN ---
Subjective - Date & Time of Evaluation Date of Evaluation: 10/10/18 Time of Evaluation: 17:10 - Subjective Subjective: Patient seen and evaluated Uncontrolled HTN and Systolic CHF For Cath tomorrow Objective - Vital Signs/Intake and Output Vital Signs (last 24 hours): Temp Pulse Resp BP Pulse Ox 98.1 F 94 H 20 140/90 95 10/10/18 20:00 10/10/18 20:00 10/10/18 20:00 10/10/18 20:00 10/10/18 20:00 Intake and Output: 10/10/18 10/11/18 18:59 06:59 Intake Total 650 360 Output Total 1380 150 Balance -730 210 - Medications Medications: Current Medications Aspirin (Aspirin) 325 mg PO DAILY [facility] Last Admin: 10/10/18 10:10 Dose: 325 mg Carvedilol (Coreg) 3.125 mg PO BID [facility] Last Admin: 10/10/18 17:11 Dose: 3.125 mg Furosemide (Lasix) 40 mg IVP DAILY [facility] Last Admin: 10/10/18 10:19 Dose: 40 mg Gabapentin (Neurontin) 100 mg PO BID [facility] Last Admin: 10/10/18 17:11 Dose: 100 mg Glipizide (Glucotrol) 10 mg PO BID [facility] Last Admin: 10/10/18 17:11 Dose: 10 mg Heparin Sodium (Porcine) (Heparin) 5,000 units SC Q8 [facility] Last Admin: 10/10/18 21:55 Dose: 5,000 units Insulin Glargine (Lantus) 30 unit SC HS [facility] Last Admin: 10/10/18 21:55 Dose: 30 units Insulin Human Regular (Novolin R) 0 unit SC [facility]; Protocol Last Admin: 10/10/18 22:00 Dose: Not Given Lisinopril (Zestril) 20 mg PO DAILY [facility] Last Admin: 10/10/18 10:14 Dose: 20 mg Pantoprazole Sodium (Protonix Ec Tab) 40 mg PO DAILY [facility] Last Admin: 10/10/18 10:10 Dose: 40 mg Rosuvastatin Calcium (Crestor) 5 mg PO HS [facility] Last Admin: 10/10/18 21:55 Dose: 5 mg Sitagliptin Phosphate (Januvia) 100 mg PO DAILY [facility] Last Admin: 10/10/18 10:10 Dose: 100 mg - Labs Labs: 10/10/18 05:52 10/10/18 05:52 PT 12.1 SECONDS (9.7-12.2) 10/08/18 21:38 INR 1.1 10/08/18 21:38 APTT 34 SECONDS (21-34) 10/08/18 21:38
[2018-10-11 06:27] LABS: BASO % 0.5 % (0.0-2.0); EOS # 0.2 K/uL (0.0-0.7); EOS % 1.9 % (0.0-4.0); LYMPH # 2.5 K/uL (1.0-4.3); LYMPH % 26.5 % (20.0-40.0); MEAN CELL VOLUME 93.1 fL (80.0-94.0); MEAN CORPUSCULAR HEMOGLOBIN 31.5 pg (27.0-31.0); MEAN CORPUSCULAR HGB CONC 33.8 g/dL (33.0-37.0); MEAN PLATELET VOLUME 10.5 fL (7.2-11.7); MONO # 0.7 K/uL (0.0-0.8); MONO % 7.5 % (0.0-10.0); NEUT # 6.1 K/uL (1.8-7.0); NEUT % 63.6 % (50.0-75.0); RBC 4.13 Mil/uL (4.40-5.90); RED CELL DISTRIBUTION WIDTH 13.9 % (11.5-14.5); WHITE BLOOD COUNT 9.6 K/uL (4.8-10.8)
[2018-10-11 06:51] LABS: ALB/GLOB RATIO 1.3 (1.0-2.1); ALBUMIN 3.5 g/dL (3.5-5.0); ALT/SGPT 51 U/L (21-72); AST/SGOT 33 U/L (17-59); BLOOD UREA NITROGEN 31 mg/dL (9-20); CALCIUM 7.8 mg/dl (8.6-10.4); GFR NON-AFRICAN AMERICAN > 60
[2018-10-11 07:14] LABS: FREE T4 1.3 ng/dL (0.78-2.19)
--- NOTE | 2018-10-11 07:17 | CP.PCM.CON ---
History of Present Illness - History of Present Illness History of Present Illness: CONSULT DICTATED ATAXI x 1 YEAR - PROGRESSIVE SEVERE SENSORY MOTOR NEUROPATHY POOR TANDOM LEANING TO HIS RIGHT INCIDENTAL RIGHT FRONTAL MASS MRI /BLOOD/EEG EMG/NCV AN OP Past Patient History - Infectious Disease Hx of Infectious Diseases: None - Past Medical History & Family History Past Medical History?: Yes - Past Social History Smoking Status: Unknown If Ever Smoked Alcohol: None Drugs: Denies Home Situation {Lives}: With Family Domestic Violence: Negative - CARDIAC Hx Hypercholesterolemia: Yes Hx Hypertension: Yes - PULMONARY Hx Respiratory Disorders: No - ENDOCRINE/METABOLIC Hx Endocrine Disorders: Yes Hx Diabetes Mellitus Type 1: Yes - MUSCULOSKELETAL/RHEUMATOLOGICAL Hx Falls: No - PSYCHIATRIC Hx Substance Use: No - SURGICAL HISTORY Hx Surgeries: No Other/Comment: foot surgery - ANESTHESIA Hx Anesthesia: Yes Hx Anesthesia Reactions: No Hx Malignant Hyperthermia: No Meds Allergies/Adverse Reactions: Allergies Allergy/AdvReac Type Severity Reaction Status Date / Time No Known Allergies Allergy Verified 10/08/18 21:27 - Medications Medications: Current Medications Aspirin (Aspirin) 325 mg PO DAILY [facility] Last Admin: 10/10/18 10:10 Dose: 325 mg Carvedilol (Coreg) 3.125 mg PO BID [facility] Last Admin: 10/10/18 17:11 Dose: 3.125 mg Furosemide (Lasix) 40 mg IVP DAILY [facility] Last Admin: 10/10/18 10:19 Dose: 40 mg Gabapentin (Neurontin) 100 mg PO BID [facility] Last Admin: 10/10/18 17:11 Dose: 100 mg Glipizide (Glucotrol) 10 mg PO BID [facility] Last Admin: 10/10/18 17:11 Dose: 10 mg Heparin Sodium (Porcine) (Heparin) 5,000 units SC Q8 [facility] Last Admin: 10/11/18 05:30 Dose: 5,000 units Insulin Glargine (Lantus) 30 unit SC HS [facility] Last Admin: 10/10/18 21:55 Dose: 30 units Insulin Human Regular (Novolin R) 0 unit SC ACHS [facility]; Protocol Last Admin: 10/10/18 22:00 Dose: Not Given Lisinopril (Zestril) 20 mg PO DAILY [facility] Last Admin: 10/10/18 10:14 Dose: 20 mg Pantoprazole Sodium (Protonix Ec Tab) 40 mg PO DAILY [facility] Last Admin: 10/10/18 10:10 Dose: 40 mg Rosuvastatin Calcium (Crestor) 5 mg PO HS [facility] Last Admin: 10/10/18 21:55 Dose: 5 mg Sitagliptin Phosphate (Januvia) 100 mg PO DAILY [facility] Last Admin: 10/10/18 10:10 Dose: 100 mg Results - Vital Signs Recent Vital Signs: Last Vital Signs Temp 97.5 F L 10/11/18 04:00 Pulse 88 10/11/18 04:00 Resp 17 10/11/18 04:00 BP 149/97 H 10/11/18 04:00 Pulse Ox 99 10/11/18 04:00 - Labs Result Diagrams: 10/11/18 06:10 10/11/18 06:10 Labs: Laboratory Results - last 24 hr 10/10/18 10/10/18 10/10/18 05:52 07:30 11:23 WBC RBC Hgb Hct MCV MCH MCHC RDW Plt Count MPV Neut % (Auto) Lymph % (Auto) Bertie % (Auto) Eos % (Auto) Baso % (Auto) Neut # (Auto) Lymph # (Auto) Bertie # (Auto) Eos # (Auto) Baso # (Auto) Sodium Potassium Chloride Carbon Dioxide Anion Gap BUN Creatinine Est GFR ( Amer) Est GFR (Non-Af Amer) POC Glucose (mg/dL) 268 H 394 H Random Glucose Hemoglobin A1c 9.3 H Calcium Phosphorus Magnesium Total Bilirubin AST ALT Alkaline Phosphatase C-React Prot High Sens Total Protein Albumin Globulin Albumin/Globulin Ratio Free T4 10/10/18 10/10/18 10/11/18 16:38 21:32 06:10 WBC RBC Hgb Hct MCV MCH MCHC RDW Plt Count MPV Neut % (Auto) Lymph % (Auto) Bertie % (Auto) Eos % (Auto) Baso % (Auto) Neut # (Auto) Lymph # (Auto) Bertie # (Auto) Eos # (Auto) Baso # (Auto) Sodium Potassium Chloride Carbon Dioxide Anion Gap BUN Creatinine Est GFR ( Amer) Est GFR (Non-Af Amer) POC Glucose (mg/dL) 302 H 250 H Random Glucose Hemoglobin A1c Calcium Phosphorus Magnesium Total Bilirubin AST ALT Alkaline Phosphatase C-React Prot High Sens 5.06 H Total Protein Albumin Globulin Albumin/Globulin Ratio Free T4 1.30 10/11/18 10/11/18 06:10 06:10 WBC 9.6 RBC 4.13 L Hgb 13.0 Hct 38.4 MCV 93.1 MCH 31.5 H MCHC 33.8 RDW 13.9 Plt Count 210 MPV 10.5 Neut % (Auto) 63.6 Lymph % (Auto) 26.5 Bertie % (Auto) 7.5 Eos % (Auto) 1.9 Baso % (Auto) 0.5 Neut # (Auto) 6.1 Lymph # (Auto) 2.5 Bertie # (Auto) 0.7 Eos # (Auto) 0.2 Baso # (Auto) 0.0 Sodium 135 Potassium 4.0 Chloride 98 Carbon Dioxide 30 Anion Gap 12 BUN 31 H Creatinine 1.0 Est GFR ( Amer) > 60 Est GFR (Non-Af Amer) > 60 POC Glucose (mg/dL) Random Glucose 312 H Hemoglobin A1c Calcium 7.8 L Phosphorus 3.5 Magnesium 2.1 Total Bilirubin 0.8 AST 33 ALT 51 Alkaline Phosphatase 70 C-React Prot High Sens Total Protein 6.2 L Albumin 3.5 Globulin 2.7 Albumin/Globulin Ratio 1.3 Free T4
[2018-10-11] MEDS ORDERED: Iodixanol 320 MG/ML 100 ML BOTTLE IV ONE (07:52)
[2018-10-11] MEDS: (Novolin R) Insulin Human Regular 100 units/ml vial SC SCH ×4 (08:16→22:00)
[2018-10-11] MEDS ORDERED: Verapamil 2 ML ONE (08:27)
[2018-10-11] MEDS ORDERED: Nitroglycerin 50mg in D5W 50 MG/250 ML BOTTLE IV ONE (08:28)
--- NOTE | 2018-10-11 10:02 | CP.PCM.PN ---
Subjective - Date & Time of Evaluation Date of Evaluation: 10/11/18 Time of Evaluation: 10:00 - Subjective Subjective: Patient s/p cath Non Obstructive Coronaries EF 15% Hypertensive cardiomyopathy Life Vest now AICD after 3 months HTN/CHF management Objective - Vital Signs/Intake and Output Vital Signs (last 24 hours): Temp Pulse Resp BP Pulse Ox 98.3 F 93 H 20 167/105 H 97 10/11/18 07:20 10/11/18 07:30 10/11/18 07:20 10/11/18 07:20 10/11/18 07:20 Intake and Output: 10/11/18 10/11/18 06:59 18:59 Intake Total 360 Output Total 400 Balance -40 - Medications Medications: Current Medications Aspirin (Aspirin) 325 mg PO DAILY [facility] Last Admin: 10/10/18 10:10 Dose: 325 mg Carvedilol (Coreg) 3.125 mg PO BID [facility] Last Admin: 10/10/18 17:11 Dose: 3.125 mg Furosemide (Lasix) 40 mg IVP DAILY [facility] Last Admin: 10/10/18 10:19 Dose: 40 mg Gabapentin (Neurontin) 100 mg PO BID [facility] Last Admin: 10/10/18 17:11 Dose: 100 mg Glipizide (Glucotrol) 10 mg PO BID [facility] Last Admin: 10/10/18 17:11 Dose: 10 mg Heparin Sodium (Porcine) (Heparin) 5,000 units SC Q8 [facility] Last Admin: 10/11/18 05:30 Dose: 5,000 units Insulin Glargine (Lantus) 30 unit SC [facility] Last Admin: 10/10/18 21:55 Dose: 30 units Insulin Human Regular (Novolin R) 0 unit SC ACHS [facility]; Protocol Last Admin: 10/11/18 08:16 Dose: Not Given Lisinopril (Zestril) 20 mg PO DAILY [facility] Last Admin: 10/10/18 10:14 Dose: 20 mg Pantoprazole Sodium (Protonix Ec Tab) 40 mg PO DAILY [facility] Last Admin: 10/10/18 10:10 Dose: 40 mg Rosuvastatin Calcium (Crestor) 5 mg PO HS [facility] Last Admin: 10/10/18 21:55 Dose: 5 mg Sitagliptin Phosphate (Januvia) 100 mg PO DAILY [facility] Last Admin: 10/10/18 10:10 Dose: 100 mg - Labs Labs: 10/11/18 06:10 10/11/18 06:10 PT 12.1 SECONDS (9.7-12.2) 10/08/18 21:38 INR 1.1 10/08/18 21:38 APTT 34 SECONDS (21-34) 10/08/18 21:38
--- NOTE | 2018-10-11 11:23 | CON ---
DATE: 10/11/2018 REASON FOR CONSULTATION: Losing balance. CHIEF COMPLAINT: The patient was admitted with accelerated high blood pressure. The patient was called in to see by neurologist because of progressive balance problem as well as abnormal CAT scan findings. HISTORY OF PRESENT ILLNESS: Mr. Henry Echols is a 67-year-old right-handed Bengali-speaking male, presenting with 1-year history of progressive imbalance. For the last two weeks, he claims that his balance got worsened. No history of fall. No history of stumbling. No history of buckling of his knees. No history of back pain. No history of neck pain. No history of headache. No history of visual or bulbar dysfunction. PAST MEDICAL HISTORY: Cdq-psbyzgh-rfuqwlika diabetes mellitus, hypertension, dyslipidemia. PERSONAL HISTORY: Denies smoking or alcohol use. ALLERGIES: NO KNOWN ALLERGIES. REVIEW OF SYSTEMS: A 12-point system being reviewed. From neuro, gait disturbances and abnormal CAT scan. PHYSICAL EXAMINATION: VITAL SIGNS: Blood pressure 149/97, mean arterial pressure of 111, respiratory rate 18, pulse rate 88, temperature 97.5. NECK: Supple. No carotid bruits. HEART: Sounds regular. CHEST: Fair air entry. EXTREMITIES: No edema in legs. NEUROLOGIC EXAMINATION: Mental status examination: He is awake, alert, oriented to person, place and time. Speech is clear. Naming, repetition, fluency, comprehension all within normal. Cranial nerve examination: Visual field intact. Pupils reactive to light. Extraocular movement normal. No nystagmus. No facial sensory deficit. No facial asymmetry. Hearing is normal. Tongue is midline. Good gag. Motor examination: On outstretched hand with eyes closed, no drift noted. Mild sensory tremor noted. Both legs, he could lift against gravity without any problem. Deep tendon reflexes absent. Plantars are downgoing. Sensory examination: Significantly decreased pinprick, light touch, vibration sense distally below his knees on both sides. Position sense is not altered. Coordination: Finger-nose test is intact. Gait: He could stand up. Romberg sign negative. Tandem leaning history, he is leaning on to his right side. CONCLUSION: On neurological examination, Mr. Henry Echols has been presenting with progressive distal sensory motor neuropathy, which probably is secondary to diabetes mellitus; however, other possible causes should be ruled out. His abnormal CT of the head, which is an incidental finding of persisting mass in the right frontal region. WORKUP: WBC 9.6, hemoglobin 13, hematocrit 38.4, platelets 210. Sodium 135, potassium 4, chloride 98, bicarbonate 30, GFR more than 60, glucose 320, calcium 7.8, CRP 5.06. CT of the head been reviewed by me showed significant atrophy with enlarged lateral ventricle as well as temporal horn is seen. There is a cystic calcified mass sitting on the right frontal region without any mass effect. RECOMMENDATIONS: 1. Blood workup as per the order. 2. Fall precaution. 3. Control the diabetes and electrolytes, particularly the calcium. The patient is recommended to have MRI of the brain to further localizing his pathology. The patient will be followed closely with you while he is in the hospital. Eusebio Carlisle MD
[2018-10-11] MEDS: Pantoprazole 40 mg EC Tab PO SCH (16:44)
--- NOTE | 2018-10-11 20:17 | PQF ---
PROVIDER RESPONSE TEXT: Unable to determine REVIEWER QUERY TEXT: CHF Acuity and Type Congestive Heart Failure is documented in the Medical Record. Please document the type and acuity (in cludes probable or suspected) Such as: Also please document the underlying cause of the CHF (includes probable or suspected) The patient's Clinical Indicators include: ?67 y/o male with SOB, worsening since yesterday. Patient was seen here yesterday for similar complai nt. States SOB has progressively worsened since leaving the hospital yesterday?. H/P: Respiratory: Positive for: Shortness of Breath, SOB with Excertion, Wheezing. CXR: Moderate pulmonary venous congestion. Cardiomegaly. ECHO: The left ventricle is normal size. There is mild concentric left ventricular hypertrophy. The Ejection Fraction is 25-30%. Transmitral Doppler flow pattern is Grade II-pseudonormal filling dy namics. The left atrial pressure is moderately elevated. Rx: Furosemide 40 mg IVP DAILY [facility] Diastolic documented, EF: 25-30% (systolic component involved). Please verify and consider specify with the information provided. Query created by: Christopher Zimmer on 10/11/2018 12:26 PM Electronically signed by: Richy Linder MD 10/11/2018 8:14 PM
--- NOTE | 2018-10-11 20:33 | CP.PCM.PN ---
Subjective - Date & Time of Evaluation Date of Evaluation: 10/11/18 Time of Evaluation: 20:31 - Subjective Subjective: On examination: Vital signs stable. Blood pressure slightly on the high side. Patient is morning had angiogram. I discussed with the printed circuit designer. Patient is doing extremely well. There was nonobstructive coronary disease. Patient had a systolic heart failure most likely related to hypertensive heart disease. Objective - Vital Signs/Intake and Output Vital Signs (last 24 hours): Temp Pulse Resp BP Pulse Ox 98 F 90 21 147/89 96 10/11/18 20:00 10/11/18 20:02 10/11/18 20:02 10/11/18 20:02 10/11/18 20:02 Intake and Output: 10/11/18 10/12/18 18:59 06:59 Intake Total 800 Output Total 1050 Balance -250 - Medications Medications: Current Medications Aspirin (Aspirin) 325 mg PO DAILY [facility] Last Admin: 10/11/18 12:52 Dose: 325 mg Carvedilol (Coreg) 3.125 mg PO BID [facility] Last Admin: 10/11/18 19:44 Dose: 3.125 mg Furosemide (Lasix) 40 mg IVP DAILY [facility] Last Admin: 10/11/18 16:44 Dose: 40 mg Gabapentin (Neurontin) 100 mg PO BID [facility] Last Admin: 10/11/18 19:48 Dose: 100 mg Glipizide (Glucotrol) 10 mg PO BID [facility] Last Admin: 10/11/18 19:43 Dose: 10 mg Heparin Sodium (Porcine) (Heparin) 5,000 units SC Q8 [facility] Last Admin: 10/11/18 14:00 Dose: Not Given Insulin Glargine (Lantus) 30 unit SC [facility] Last Admin: 10/10/18 21:55 Dose: 30 units Insulin Human Regular (Novolin R) 0 unit SC [facility]; Protocol Last Admin: 10/11/18 16:44 Dose: 6 u Lisinopril (Zestril) 20 mg PO DAILY [facility] Last Admin: 10/11/18 10:00 Dose: Not Given Pantoprazole Sodium (Protonix Ec Tab) 40 mg PO DAILY [facility] Last Admin: 10/11/18 16:44 Dose: 40 mg Rosuvastatin Calcium (Crestor) 10 mg PO [facility] Sitagliptin Phosphate (Januvia) 100 mg PO DAILY [facility] Last Admin: 10/11/18 09:50 Dose: 100 mg - Labs Labs: 10/11/18 06:10 10/11/18 06:10 PT 12.1 SECONDS (9.7-12.2) 10/08/18 21:38 INR 1.1 10/08/18 21:38 APTT 34 SECONDS (21-34) 10/08/18 21:38
[2018-10-11] MEDS: (Lantus) Insulin Glargine, Recombinant SC SCH (22:10)
--- NOTE | 2018-10-12 07:48 | CP.PCM.PN ---
Subjective - Date & Time of Evaluation Date of Evaluation: 10/12/18 Time of Evaluation: 07:46 - Subjective Subjective: Patient is currently feeling well. 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 Patient had an episode of atrial flutter fibrillation last night. He has less leg swelling. Is comfortable. No chest pain no nausea vomiting. On examination: Vital signs stable. Blood pressure stable. Chest good air entry. Regular hs noted. Nontender abdomen. No pedal edema Assessment and recommendation: 67-year-old male with a history of diabetes hypertension hypercholesterolemia. Poorly controlled. Associate with the cardiomyopathy. Hypertensive heart disease. Associated with normal coronary arteries. Patient is clinically stable. But he had an episode of atrial flutter last night. Patient is a high risk for thromboembolic episode. We will get a cardiology opinion. Patient may need anticoagulation and will follow the patient. Insulin level increased will closely monitor the blood sugar possible discharge plan tomorrow morning Objective - Vital Signs/Intake and Output Vital Signs (last 24 hours): Temp Pulse Resp BP Pulse Ox 97.9 F 94 H 18 119/68 92 L 10/12/18 04:00 10/12/18 04:00 10/12/18 04:00 10/12/18 04:01 10/12/18 04:00 Intake and Output: 10/12/18 10/12/18 06:59 18:59 Intake Total 600 Output Total 800 Balance -200 - Medications Medications: Current Medications Aspirin (Aspirin) 325 mg PO DAILY [facility] Last Admin: 10/11/18 12:52 Dose: 325 mg Carvedilol (Coreg) 6.5 mg PO BID [facility] Furosemide (Lasix) 40 mg PO DAILY [facility] Gabapentin (Neurontin) 100 mg PO BID [facility] Last Admin: 10/11/18 19:48 Dose: 100 mg Glipizide (Glucotrol) 10 mg PO BID [facility] Last Admin: 10/11/18 19:43 Dose: 10 mg Heparin Sodium (Porcine) (Heparin) 5,000 units SC Q8 [facility] Last Admin: 10/12/18 06:50 Dose: 5,000 units Insulin Glargine (Lantus) 25 unit SC Q12 [facility] Insulin Human Regular (Novolin R) 0 unit SC ACHS [facility]; Protocol Last Admin: 10/11/18 22:00 Dose: Not Given Lisinopril (Zestril) 20 mg PO DAILY [facility] Last Admin: 10/11/18 10:00 Dose: Not Given Pantoprazole Sodium (Protonix Ec Tab) 40 mg PO DAILY [facility] Last Admin: 10/11/18 16:44 Dose: 40 mg Rosuvastatin Calcium (Crestor) 10 mg PO HS [facility] Last Admin: 10/11/18 22:10 Dose: 10 mg Sitagliptin Phosphate (Januvia) 100 mg PO DAILY [facility] Last Admin: 10/11/18 09:50 Dose: 100 mg - Labs Labs: 10/11/18 06:10 10/11/18 06:10 PT 12.1 SECONDS (9.7-12.2) 10/08/18 21:38 INR 1.1 10/08/18 21:38 APTT 34 SECONDS (21-34) 10/08/18 21:38
[2018-10-12] MEDS: (Novolin R) Insulin Human Regular 100 units/ml vial SC SCH ×4 (08:41→21:55)
--- NOTE | 2018-10-12 09:18 | PN ---
DATE: 10/12/2018 NEUROLOGICAL PROBLEM: Ataxia and abnormal CT finding. PHYSICAL EXAMINATION: VITAL SIGNS: Blood pressure 119/68, mean arterial pressure of 80, respiratory rate 18, and temperature afebrile. LABORATORY DATA: The patient did have cardiac catheterization yesterday. It showed significant hypertensive cardiomyopathy. The study revealed hypertensive heart disease with no obstructive coronary disease. The patient is sleeping at this point, but current examination is unchanged compared with my previous exam. The patient is recommended to have MRI of the brain for further investigating the focal pathology seen as per the CAT scan in the right frontal lobe. The patient is neurologically stable; however, the recommended workup is on progress. Eusebio Carlisle MD
[2018-10-12] MEDS: Pantoprazole 40 mg EC Tab PO SCH (09:53)
[2018-10-12] MEDS: (Lantus) Insulin Glargine, Recombinant SC SCH ×2 (09:53→21:52)
--- NOTE | 2018-10-13 06:29 | CP.PCM.PN ---
Subjective - Date & Time of Evaluation Date of Evaluation: 10/12/18 Time of Evaluation: 20:20 - Subjective Subjective: Feels better Wants to go home One episode of A Fib-Resolved spontaneously Will monitor Non Obstructive Coronaries EF 15% Hypertensive cardiomyopathy Life Vest now AICD after 3 months HTN/CHF management Objective - Vital Signs/Intake and Output Vital Signs (last 24 hours): Temp Pulse Resp BP Pulse Ox 98.6 F 75 15 138/91 H 96 10/12/18 20:00 10/13/18 01:02 10/13/18 01:02 10/13/18 01:02 10/13/18 01:02 Intake and Output: 10/12/18 10/13/18 18:59 06:59 Intake Total 240 Output Total 500 Balance -260 - Medications Medications: Current Medications Aspirin (Aspirin) 325 mg PO DAILY [facility] Last Admin: 10/12/18 09:53 Dose: 325 mg Carvedilol (Coreg) 6.25 mg PO BID [facility] Last Admin: 10/12/18 17:24 Dose: 6.25 mg Furosemide (Lasix) 40 mg PO DAILY [facility] Last Admin: 10/12/18 09:53 Dose: 40 mg Gabapentin (Neurontin) 100 mg PO BID [facility] Last Admin: 10/12/18 17:24 Dose: 100 mg Glipizide (Glucotrol) 10 mg PO BID [facility] Last Admin: 10/12/18 17:24 Dose: 10 mg Heparin Sodium (Porcine) (Heparin) 5,000 units SC Q8 [facility] Last Admin: 10/12/18 21:55 Dose: 5,000 units Insulin Glargine (Lantus) 25 unit SC Q12 [facility] Last Admin: 10/12/18 21:52 Dose: 25 unit Insulin Human Regular (Novolin R) 0 unit SC ACHS [facility]; Protocol Last Admin: 10/12/18 21:55 Dose: 2 u Lisinopril (Zestril) 20 mg PO DAILY [facility] Last Admin: 10/12/18 09:53 Dose: 20 mg Pantoprazole Sodium (Protonix Ec Tab) 40 mg PO DAILY [facility] Last Admin: 10/12/18 09:53 Dose: 40 mg Rosuvastatin Calcium (Crestor) 10 mg PO HS [facility] Last Admin: 10/12/18 21:51 Dose: 10 mg Sitagliptin Phosphate (Januvia) 100 mg PO DAILY [facility] Last Admin: 10/12/18 09:53 Dose: 100 mg - Labs Labs: 10/11/18 06:10 10/11/18 06:10 PT 12.1 SECONDS (9.7-12.2) 10/08/18 21:38 INR 1.1 10/08/18 21:38 APTT 34 SECONDS (21-34) 10/08/18 21:38
[2018-10-13] MEDS: (Novolin R) Insulin Human Regular 100 units/ml vial SC SCH ×4 (08:20→21:20)
--- NOTE | 2018-10-13 09:45 | PN ---
DATE: 10/13/2018 TIME OF EVALUATION: 07:10 a.m. NEUROLOGIC PROBLEM: Neuropathy. PHYSICAL EXAMINATION: VITAL SIGNS: Blood pressure 151/95, mean arterial pressure of 113, respiratory rate 18, temperature afebrile with pulse rate of 76, sinus. Patient did have episode of SVT yesterday kept observed without any medication. Patient reversed to normal sinus rhythm. Patient claims he slept good and asymptomatic at present. Patient can able to go to the MRI of the brain as scheduled earlier. Continue the present management of diabetic control as he has been getting it at present. Patient will be followed closely with you. Eusebio Carlisle MD
[2018-10-13] MEDS: (Lantus) Insulin Glargine, Recombinant SC SCH ×2 (10:15→21:19)
[2018-10-13] MEDS: Pantoprazole 40 mg EC Tab PO SCH (11:31)
[2018-10-13] MEDS ORDERED: Gadodiamide 287 mg/ml 20 ml IV ONE (16:02)
--- NOTE | 2018-10-13 22:55 | CP.PCM.PN ---
Subjective - Date & Time of Evaluation Date of Evaluation: 10/13/18 Time of Evaluation: 18:35 - Subjective Subjective: Patient seen and evaluated No cardiac events noted Objective - Vital Signs/Intake and Output Vital Signs (last 24 hours): Temp Pulse Resp BP Pulse Ox 97.6 F 84 18 128/78 96 10/13/18 16:30 10/13/18 22:21 10/13/18 16:30 10/13/18 21:27 10/13/18 16:30 Intake and Output: 10/13/18 10/14/18 18:59 06:59 Intake Total 500 Balance 500 - Medications Medications: Current Medications Aspirin (Aspirin) 325 mg PO DAILY [facility] Last Admin: 10/13/18 11:31 Dose: 325 mg Carvedilol (Coreg) 6.25 mg PO BID [facility] Last Admin: 10/13/18 17:03 Dose: 6.25 mg Furosemide (Lasix) 40 mg PO DAILY [facility] Last Admin: 10/13/18 11:31 Dose: 40 mg Gabapentin (Neurontin) 100 mg PO BID [facility] Last Admin: 10/13/18 17:03 Dose: 100 mg Glipizide (Glucotrol) 10 mg PO BID [facility] Last Admin: 10/13/18 17:03 Dose: 10 mg Heparin Sodium (Porcine) (Heparin) 5,000 units SC Q8 [facility] Last Admin: 10/13/18 21:20 Dose: 5,000 units Insulin Glargine (Lantus) 25 unit SC Q12 [facility] Last Admin: 10/13/18 21:19 Dose: 25 unit Insulin Human Regular (Novolin R) 0 unit SC ACHS [facility]; Protocol Last Admin: 10/13/18 21:20 Dose: Not Given Lisinopril (Zestril) 20 mg PO DAILY [facility] Last Admin: 10/13/18 11:31 Dose: 20 mg Pantoprazole Sodium (Protonix Ec Tab) 40 mg PO DAILY [facility] Last Admin: 10/13/18 11:31 Dose: 40 mg Rosuvastatin Calcium (Crestor) 10 mg PO HS [facility] Last Admin: 10/13/18 21:19 Dose: 10 mg Sitagliptin Phosphate (Januvia) 100 mg PO DAILY [facility] Last Admin: 10/13/18 11:31 Dose: 100 mg - Labs Labs: 10/11/18 06:10 01/08/19 06:10 PT 12.1 SECONDS (9.7-12.2) 10/08/18 21:38 INR 1.1 10/08/18 21:38 APTT 34 SECONDS (21-34) 10/08/18 21:38
[2018-10-14] MEDS: (Novolin R) Insulin Human Regular 100 units/ml vial SC SCH ×4 (08:30→21:55)
--- NOTE | 2018-10-14 09:32 | PN ---
DATE: 10/14/2018 TIME OF EVALUATION: 07:10 a.m. NEUROLOGICAL PROBLEM: Ataxia with incidental finding of intracranial lesion. PHYSICAL EXAMINATION: GENERAL: The patient is comfortably lying down in bed without any symptoms. No headache. No fever. No focal weakness. Losing balance while walking which is chronic. VITAL SIGNS: Blood pressure 136/83, mean arterial pressure of 100, respiratory rate 18, temperature 97.8 with pulse rate 76 and regular. Examination is unchanged compared with my previous examination. His workup of MRI of the brain which has been reviewed by me showed significant periventricular ischemic changes consistent with chronic small vessel disease. The contrast MRI shows nonenhanced cystic lesion seen in the right frontal region close to the ventricle, it seems to be intraventricular lesion. Some edema adjacent in the frontal region without any mass effect. This seems to be an incidental finding considering the cystic nature, this could be intracerebral abscess. However, the patient does not show any positive finding, positive symptoms related to this problem. The patient does not seem to be septic. However, the patient needs this to be followed as outpatient, may be repeated MRI in high resolution in pretest lab could have been helping to further localizing the pathology. That all can be done as outpatient. The patient's gait disturbance is all related to his existing peripheral neuropathy. Further workup for that can be done as outpatient as well. From neurological point of view, the patient is stable and signing him off followup. If any changes in neuro status, please consider to call me for further evaluation. Eusebio Carlisle MD
[2018-10-14] MEDS: Pantoprazole 40 mg EC Tab PO SCH (09:37)
[2018-10-14] MEDS: (Lantus) Insulin Glargine, Recombinant SC SCH ×2 (09:38→21:57)
--- NOTE | 2018-10-14 09:42 | MRI ---
Date of service: 10/13/2018 PROCEDURE: MRI BRAIN WITH AND WITHOUT CONTRAST HISTORY: right frontal mass COMPARISON: Noncontrast head CT from 10/09/2018 and MRI brain without contrast from 08/07/2016. TECHNIQUE: Multiplanar, multisequence MR images of the brain were obtained with and without intravenous contrast enhancement. 16 mL Omniscan was injected intravenously. FINDINGS: HEMORRHAGE: None DWI: No evidence of an acute or early subacute infarction. BRAIN PARENCHYMA: There is a 1.0 x 1.0 cm well-circumscribed round peripherally calcified nonenhancing lesion arising from the medial wall of the frontal horn of the right lateral ventricle not significantly changed in size and appearance since the prior MRI from August 2016. There are severe chronic microangiopathic changes. There is a small lacunar infarction in the right thalamus. There is no mass effect or abnormal extra-axial fluid collection. There is no territorial infarction. The midline sagittal structures are normal. ENHANCEMENT: No abnormal intracranial enhancement. VENTRICLES: There is mild age-related global parenchymal volume loss and proportionate enlargement of the ventricles and cortical sulci. CRANIUM: There is normal bone marrow signal pattern. ORBITS: Grossly unremarkable. PARANASAL SINUSES/MASTOIDS: The paranasal sinuses are predominantly clear. There are trace mastoid effusions, worse on the right. VASCULAR SYSTEM: There are normal signal voids in the larger intracranial arteries. OTHER FINDINGS: None . IMPRESSION: 1. No acute intracranial abnormality. 2. Severe chronic microangiopathic changes and mild age-related global parenchymal volume loss. Small lacunar infarction in the right thalamus. 3. Interval stability of 1.0 x 1.0 cm round peripherally calcified lesion originating from the medial wall of the frontal horn of the right lateral ventricle without hydrocephalus, mass effect or midline shift. The differential considerations include intraventricular neuroepithelial cyst, choroid plexus cyst, ependymal cyst and nonspecific infectious/inflammatory cyst.
[2018-10-15] MEDS: (Novolin R) Insulin Human Regular 100 units/ml vial SC SCH ×4 (08:30→21:36)
[2018-10-15] MEDS: Pantoprazole 40 mg EC Tab PO SCH (09:25)
[2018-10-15] MEDS: (Lantus) Insulin Glargine, Recombinant SC SCH ×2 (09:26→21:41)
--- NOTE | 2018-10-15 14:44 | CP.PCM.PN ---
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 Stop ASA and Hep SC Start Lovenox 70mg SC bid Objective - Vital Signs/Intake and Output Vital Signs (last 24 hours): Temp Pulse Resp BP Pulse Ox 97.4 F L 89 20 150/80 93 L 10/15/18 08:20 10/15/18 09:25 10/15/18 08:20 10/15/18 09:26 10/15/18 08:20 Intake and Output: 10/15/18 10/15/18 06:59 18:59 Intake Total 580 Balance 580 - Medications Medications: Current Medications Carvedilol (Coreg) 6.25 mg PO BID [facility] Last Admin: 10/15/18 09:25 Dose: 6.25 mg Furosemide (Lasix) 40 mg PO DAILY [facility] Last Admin: 10/15/18 09:26 Dose: 40 mg Gabapentin (Neurontin) 100 mg PO BID [facility] Last Admin: 10/15/18 09:26 Dose: 100 mg Glipizide (Glucotrol) 10 mg PO BID [facility] Last Admin: 10/15/18 09:26 Dose: 10 mg Insulin Glargine (Lantus) 25 unit SC Q12 [facility] Last Admin: 10/15/18 09:26 Dose: 25 unit Insulin Human Regular (Novolin R) 0 unit SC ACHS [facility]; Protocol Last Admin: 10/15/18 12:35 Dose: 6 units Lisinopril (Zestril) 20 mg PO DAILY [facility] Last Admin: 10/15/18 09:26 Dose: 20 mg Pantoprazole Sodium (Protonix Ec Tab) 40 mg PO DAILY [facility] Last Admin: 10/15/18 09:25 Dose: 40 mg Rosuvastatin Calcium (Crestor) 10 mg PO HS [facility] Last Admin: 10/14/18 21:57 Dose: 10 mg Sitagliptin Phosphate (Januvia) 100 mg PO DAILY [facility] Last Admin: 10/15/18 09:26 Dose: 100 mg - Labs Labs: 10/11/18 06:10 10/11/18 06:10 PT 12.1 SECONDS (9.7-12.2) 10/08/18 21:38 INR 1.1 10/08/18 21:38 APTT 34 SECONDS (21-34) 10/08/18 21:38
[2018-10-15] MEDS ORDERED: Enoxaparin 80 mg Syringe SC SCH (22:00)
--- NOTE | 2018-10-15 23:19 | CP.PCM.PN ---
Subjective - Date & Time of Evaluation Date of Evaluation: 10/15/18 Time of Evaluation: 17:30 - Subjective Subjective: Patient seen and evaluated Denies chest pain and dyspnea waiting life Vest Review Of Systems Constitutional: Negative for: Fever, Chills Eyes: Negative for: Redness ENT: Negative for: Throat Pain Cardiovascular: Negative for: Chest Pain, Palpitations Respiratory: Positive for: Shortness of Breath, SOB with Excertion, Wheezing Gastrointestinal: Negative for: Nausea, Vomiting, Abdominal Pain Genitourinary: Negative for: Dysuria Musculoskeletal: Negative for: Back Pain Skin: Negative for: Rash Neurological: Negative for: Weakness, Numbness, Dizziness Psych: Negative for: Anxiety Physical Exam - Physical Exam Appears: Comfortable Skin: Warm, Dry Head: Normacephalic Eye(s): bilateral: Normal Inspection Oral Mucosa: Dry Teeth: Normal Dentition Neck: Trachea Midline, Supple Chest: Symmetrical Cardiovascular: Rhythm Regular Respiratory: Clear Gastrointestinal/Abdominal: Soft, No Tenderness, No Distention Back: Normal Inspection Extremity: Normal ROM, Pedal Edema (trace), No Deformity Extremity: Bilateral: Normal Color And Temperature, Normal ROM Pulses: Left Dorsalis Pedis: Normal, Right Dorsalis Pedis: Normal Neurological/Psych: Oriented x3 Gait: Steady Objective - Vital Signs/Intake and Output Vital Signs (last 24 hours): Temp Pulse Resp BP Pulse Ox 98.2 F 82 18 145/83 96 10/15/18 15:00 10/15/18 21:49 10/15/18 15:00 10/15/18 21:49 10/15/18 15:00 Intake and Output: 10/15/18 10/16/18 18:59 06:59 Intake Total 500 Balance 500 - Medications Medications: Current Medications Carvedilol (Coreg) 6.25 mg PO BID [facility] Last Admin: 10/15/18 17:24 Dose: 6.25 mg Enoxaparin Sodium (Lovenox) 70 mg SC Q12 [facility] Last Admin: 10/15/18 21:41 Dose: 70 mg Furosemide (Lasix) 40 mg PO DAILY [facility] Last Admin: 10/15/18 09:26 Dose: 40 mg Gabapentin (Neurontin) 100 mg PO BID [facility] Last Admin: 10/15/18 17:24 Dose: 100 mg Glipizide (Glucotrol) 10 mg PO BID [facility] Last Admin: 10/15/18 17:24 Dose: 10 mg Insulin Glargine (Lantus) 25 unit SC Q12 [facility] Last Admin: 10/15/18 21:41 Dose: 25 unit Insulin Human Regular (Novolin R) 0 unit SC ACHS [facility]; Protocol Last Admin: 10/15/18 21:36 Dose: Not Given Lisinopril (Zestril) 20 mg PO DAILY [facility] Last Admin: 10/15/18 09:26 Dose: 20 mg Pantoprazole Sodium (Protonix Ec Tab) 40 mg PO DAILY [facility] Last Admin: 10/15/18 09:25 Dose: 40 mg Rosuvastatin Calcium (Crestor) 10 mg PO HS [facility] Last Admin: 10/15/18 21:41 Dose: 10 mg Sitagliptin Phosphate (Januvia) 100 mg PO DAILY [facility] Last Admin: 10/15/18 09:26 Dose: 100 mg - Labs Labs: 10/11/18 06:10 10/11/18 06:10 PT 12.1 SECONDS (9.7-12.2) 10/08/18 21:38 INR 1.1 10/08/18 21:38 APTT 34 SECONDS (21-34) 10/08/18 21:38 Assessment and Plan - Assessment and Plan (Free Text) Assessment: Acute systolic CHF HTN controlled Paraxysmal A Fib D/W the patient the need of AC for Paraxysmal A Fib due to high CHADS score Explained the risks of bleeding and the benefits of stroke prevention and benefit outweighing the risk Patient agreed. Will start Eliquis 5mg po bid
--- NOTE | 2018-10-16 01:27 | CARDCATH ---
PROCEDURE DATE: 10/11/2018 PROCEDURES: 1. Left heart catheterization. 2. Coronary angiogram. REFERRING PHYSICIAN: Richy Linder MD PERFORMING PHYSICIAN: Case Elizabeth MD CLINICAL INDICATIONS: 1. Pulmonary edema. 2. Acute systolic congestive heart failure. 3. Hypertension. 4. Hyperlipidemia. 5. Abnormal troponin. DESCRIPTION OF PROCEDURE: After informed consent, the patient was prepped and draped in the usual sterile fashion. A 2% lidocaine was given in the right wrist for local anesthesia. Using micropuncture technique, a 6-Russian sheath was introduced into the right radial artery. A JR-4, 6-Russian diagnostic catheter crossed into left ventricular across the aortic valve. LV end-diastolic pressure was measured. Contrast injected and LV angiogram was done. Then, the catheter was pulled back across the aortic valve. Gradient across the aortic valve was measured. The same catheter engaged into right coronary artery. Contrast injected and right coronary angiogram was done. Then, the catheter exchanged to 6-Russian [place] catheter. The catheter engaged into left main coronary artery. Contrast injected and left coronary angiogram was done. The patient tolerated the procedure well. Post-procedure, Terumo radial band applied to right wrist with excellent hemostasis. Radiological supervision and radiological interpretation of the coronary imaging was done. FINDINGS: 1. Left main coronary artery is patent. 2. LAD and diagonal branches are patent. 3. Left circumflex and obtuse marginal branches are patent. 4. Right coronary artery is dominant. Distal right coronary artery has 60% nonobstructive stenosis. PDA and PLV branches are patent. 5. LV ejection fraction is 25%. Dilated nonischemic cardiomyopathy. EDP is 24. No gradient across the aortic valve. IMPRESSION: 1. Nonobstructive coronaries. Distal right coronary artery has 60% nonobstructive stenosis. 2. Dilated nonischemic cardiomyopathy with ejection fraction of 25%. Recommend medical management. Case Elizabeth MD
[2018-10-16] MEDS: (Novolin R) Insulin Human Regular 100 units/ml vial SC SCH ×4 (08:30→21:52)
[2018-10-16] MEDS: Pantoprazole 40 mg EC Tab PO SCH (09:15)
[2018-10-16] MEDS: (Lantus) Insulin Glargine, Recombinant SC SCH ×2 (09:15→21:59)
--- NOTE | 2018-10-16 13:02 | CP.PCM.PN ---
Subjective - Date & Time of Evaluation Date of Evaluation: 10/13/18 Time of Evaluation: 13:01 - Subjective Subjective: Patient had an episodes of intermittent atrial flutter fibrillation. Patient is comfortable. Still hypoxic. When he is walking oxygen saturation is loitering On examination: Vital signs stable otherwise, elevated blood pressure, and also blood sugar noted. Chest good air entry Regular [place] nontender abdomen Assessment and recommendation: 67-year-old male with a history of diabetes hypertension high cholesterol admitted with the nonischemic cardiomyopathy. Hypertensive heart disease with heart failure. Recommended to control the blood pressure well. Controlling the blood sugar. 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 and will follow the patient Objective - Vital Signs/Intake and Output Vital Signs (last 24 hours): Temp Pulse Resp BP Pulse Ox 97.7 F 80 20 157/88 H 96 10/16/18 08:53 10/16/18 08:53 10/16/18 08:53 10/16/18 09:14 10/16/18 08:53 Intake and Output: 10/16/18 10/16/18 06:59 18:59 Intake Total 500 Balance 500 - Medications Medications: Current Medications Apixaban (Eliquis) 5 mg PO BID [facility] Last Admin: 10/16/18 09:14 Dose: 5 mg Carvedilol (Coreg) 6.25 mg PO BID [facility] Last Admin: 10/16/18 09:15 Dose: 6.25 mg Furosemide (Lasix) 40 mg PO DAILY [facility] Last Admin: 10/16/18 09:14 Dose: 40 mg Gabapentin (Neurontin) 100 mg PO BID [facility] Last Admin: 10/16/18 09:15 Dose: 100 mg Glipizide (Glucotrol) 10 mg PO BID [facility] Last Admin: 10/16/18 09:15 Dose: 10 mg Insulin Glargine (Lantus) 25 unit SC Q12 [facility] Last Admin: 10/16/18 09:15 Dose: 25 unit Insulin Human Regular (Novolin R) 0 unit SC ACHS [facility]; Protocol Last Admin: 10/16/18 12:30 Dose: 6 units Lisinopril (Zestril) 20 mg PO DAILY [facility] Last Admin: 10/16/18 09:15 Dose: 20 mg Pantoprazole Sodium (Protonix Ec Tab) 40 mg PO DAILY [facility] Last Admin: 10/16/18 09:15 Dose: 40 mg Rosuvastatin Calcium (Crestor) 10 mg PO HS [facility] Last Admin: 10/15/18 21:41 Dose: 10 mg Sitagliptin Phosphate (Januvia) 100 mg PO DAILY [facility] Last Admin: 10/16/18 09:15 Dose: 100 mg - Labs Labs: 10/11/18 06:10 10/11/18 06:10 PT 12.1 SECONDS (9.7-12.2) 10/08/18 21:38 INR 1.1 10/08/18 21:38 APTT 34 SECONDS (21-34) 10/08/18 21:38
--- NOTE | 2018-10-16 13:02 | CP.PCM.PN ---
Subjective - Date & Time of Evaluation Date of Evaluation: 10/14/18 Time of Evaluation: 13:02 - Subjective Subjective: Some wheezing in the lungs noted. Able to ambulate. He is being transferred to fifth floor. No chest pain or shortness of breath. Denies any nausea no vomiting noted. Leg edema 1+ noted. Blood sugar still noted to be elevated On examination: Vital signs stable. Chest bilateral wheezing noted minimally Abdomen soft nontender. Patient is 67-year-old male with a history of CAD hypertension nonobstructive coronary disease. Hypertensive heart disease. nonischemic cardiomyopathy. We will continue the current treatment. For anticoagulation possibly Objective - Vital Signs/Intake and Output Vital Signs (last 24 hours): Temp Pulse Resp BP Pulse Ox 97.7 F 80 20 157/88 H 96 10/16/18 08:53 10/16/18 08:53 10/16/18 08:53 10/16/18 09:14 10/16/18 08:53 Intake and Output: 10/16/18 10/16/18 06:59 18:59 Intake Total 500 Balance 500 - Medications Medications: Current Medications Apixaban (Eliquis) 5 mg PO BID [facility] Last Admin: 10/16/18 09:14 Dose: 5 mg Carvedilol (Coreg) 6.25 mg PO BID [facility] Last Admin: 10/16/18 09:15 Dose: 6.25 mg Furosemide (Lasix) 40 mg PO DAILY [facility] Last Admin: 10/16/18 09:14 Dose: 40 mg Gabapentin (Neurontin) 100 mg PO BID [facility] Last Admin: 10/16/18 09:15 Dose: 100 mg Glipizide (Glucotrol) 10 mg PO BID [facility] Last Admin: 10/16/18 09:15 Dose: 10 mg Insulin Glargine (Lantus) 25 unit SC Q12 [facility] Last Admin: 10/16/18 09:15 Dose: 25 unit Insulin Human Regular (Novolin R) 0 unit SC ACHS [facility]; Protocol Last Admin: 10/16/18 12:30 Dose: 6 units Lisinopril (Zestril) 20 mg PO DAILY [facility] Last Admin: 10/16/18 09:15 Dose: 20 mg Pantoprazole Sodium (Protonix Ec Tab) 40 mg PO DAILY [facility] Last Admin: 10/16/18 09:15 Dose: 40 mg Rosuvastatin Calcium (Crestor) 10 mg PO HS [facility] Last Admin: 10/15/18 21:41 Dose: 10 mg Sitagliptin Phosphate (Januvia) 100 mg PO DAILY [facility] Last Admin: 10/16/18 09:15 Dose: 100 mg - Labs Labs: 10/11/18 06:10 10/11/18 06:10 PT 12.1 SECONDS (9.7-12.2) 10/08/18 21:38 INR 1.1 10/08/18 21:38 APTT 34 SECONDS (21-34) 10/08/18 21:38
--- NOTE | 2018-10-16 13:02 | CP.PCM.PN ---
Subjective - Date & Time of Evaluation Date of Evaluation: 10/15/18 Time of Evaluation: 13:02 - Subjective Subjective: Patient is comfortable. I able to walk him up. When he is walking his oxygen saturation remains 96-97%. Nontender abdomen. Vital signs stable. We will repeat the labs tomorrow. If cleared by cardiology possible discharge plan tomorrow. He will need anticoagulation. Discussed with the patient and will follow the patient Objective - Vital Signs/Intake and Output Vital Signs (last 24 hours): Temp Pulse Resp BP Pulse Ox 97.7 F 80 20 157/88 H 96 10/16/18 08:53 10/16/18 08:53 10/16/18 08:53 10/16/18 09:14 10/16/18 08:53 Intake and Output: 10/16/18 10/16/18 06:59 18:59 Intake Total 500 Balance 500 - Medications Medications: Current Medications Apixaban (Eliquis) [address] [facility] Last Admin: 10/16/18 09:14 Dose: 5 mg Carvedilol (Coreg) 6.[address] [facility] Last Admin: 10/16/18 09:15 Dose: 6.25 mg Furosemide (Lasix) [address] [facility] Last Admin: 10/16/18 09:14 Dose: 40 mg Gabapentin (Neurontin) [address] [facility] Last Admin: 10/16/18 09:15 Dose: 100 mg Glipizide (Glucotrol) [address] [facility] Last Admin: 10/16/18 09:15 Dose: 10 mg Insulin Glargine (Lantus) [address] [facility] Last Admin: 10/16/18 09:15 Dose: 25 unit Insulin Human Regular (Novolin R) [address] [facility]; Protocol Last Admin: 10/16/18 12:30 Dose: 6 units Lisinopril (Zestril) [address] [facility] Last Admin: 10/16/18 09:15 Dose: 20 mg Pantoprazole Sodium (Protonix Ec Tab) [address] [facility] Last Admin: 10/16/18 09:15 Dose: 40 mg Rosuvastatin Calcium (Crestor) [address] [facility] Last Admin: 10/15/18 21:41 Dose: 10 mg Sitagliptin Phosphate (Januvia) [address] [facility] Last Admin: 10/16/18 09:15 Dose: 100 mg - Labs Labs: 10/11/18 06:10 10/11/18 06:10 PT 12.1 SECONDS (9.7-12.2) 10/08/18 21:38 INR 1.1 10/08/18 21:38 APTT 34 SECONDS (21-34) 10/08/18 21:38
--- NOTE | 2018-10-16 13:09 | CP.PCM.PN ---
Subjective - Date & Time of Evaluation Date of Evaluation: 10/16/18 Time of Evaluation: 13:08 - Subjective Subjective: Patient blood sugar is still elevated. Also the blood pressure. He is comfortable otherwise. Able to walk. No chest pain or shortness of breath oxygen saturation is good I discussed with the executive director sheltered workshop. LifeVest will be placed as an outpatient. Will add hydralazine 10 mg 3 times daily. Rest of the medication reviewed Patient is a 67 male with hypertensive heart disease with a heart failure. Nonischemic cardiomyopathy Poorly controlled diabetes. Medication adjusted and will follow the patient. Discharge plan tomorrow after the control of the blood pressure somewhat. Continue anticoagulation Objective - Vital Signs/Intake and Output Vital Signs (last 24 hours): Temp Pulse Resp BP Pulse Ox 97.7 F 80 20 157/88 H 96 10/16/18 08:53 10/16/18 08:53 10/16/18 08:53 10/16/18 09:14 10/16/18 08:53 Intake and Output: 10/16/18 10/16/18 06:59 18:59 Intake Total 500 Balance 500 - Medications Medications: Current Medications Apixaban (Eliquis) 5 mg PO BID [facility] Last Admin: 10/16/18 09:14 Dose: 5 mg Carvedilol (Coreg) 6.25 mg PO BID [facility] Last Admin: 10/16/18 09:15 Dose: 6.25 mg Furosemide (Lasix) 40 mg PO DAILY [facility] Last Admin: 10/16/18 09:14 Dose: 40 mg Gabapentin (Neurontin) 100 mg PO BID [facility] Last Admin: 10/16/18 09:15 Dose: 100 mg Glipizide (Glucotrol) 10 mg PO BID [facility] Last Admin: 10/16/18 09:15 Dose: 10 mg Hydralazine HCl (Apresoline) 10 mg PO Q8 [facility] Insulin Glargine (Lantus) 25 unit SC Q12 [facility] Last Admin: 10/16/18 09:15 Dose: 25 unit Insulin Human Regular (Novolin R) 0 unit SC ACHS [facility]; Protocol Last Admin: 10/16/18 12:30 Dose: 6 units Lisinopril (Zestril) 20 mg PO DAILY [facility] Last Admin: 10/16/18 09:15 Dose: 20 mg Pantoprazole Sodium (Protonix Ec Tab) 40 mg PO DAILY [facility] Last Admin: 10/16/18 09:15 Dose: 40 mg Rosuvastatin Calcium (Crestor) 10 mg PO HS [facility] Last Admin: 10/15/18 21:41 Dose: 10 mg Sitagliptin Phosphate (Januvia) 100 mg PO DAILY [facility] Last Admin: 10/16/18 09:15 Dose: 100 mg - Labs Labs: 10/11/18 06:10 10/11/18 06:10 PT 12.1 SECONDS (9.7-12.2) 10/08/18 21:38 INR 1.1 10/08/18 21:38 APTT 34 SECONDS (21-34) 10/08/18 21:38
[2018-10-16 13:52] LABS: BASO # 0.1 K/uL (0.0-0.2); BASO % 0.9 % (0.0-2.0); EOS # 0.2 K/uL (0.0-0.7); EOS % 1.7 % (0.0-4.0); HEMOGLOBIN 14.4 g/dL (12.0-18.0); LYMPH # 2.4 K/uL (1.0-4.3); LYMPH % 26.4 % (20.0-40.0); MEAN CORPUSCULAR HEMOGLOBIN 31.2 pg (27.0-31.0); MEAN CORPUSCULAR HGB CONC 33.5 g/dL (33.0-37.0); MEAN PLATELET VOLUME 10.3 fL (7.2-11.7); MONO # 0.8 K/uL (0.0-0.8); NEUT # 5.6 K/uL (1.8-7.0); NRBC % 0.1 % (0.0-2.0); RBC 4.64 Mil/uL (4.40-5.90); RED CELL DISTRIBUTION WIDTH 13.7 % (11.5-14.5)
[2018-10-16 14:05] LABS: ALB/GLOB RATIO 1.5 (1.0-2.1); ALBUMIN 4.1 g/dL (3.5-5.0); ALT/SGPT 46 U/L (21-72); AST/SGOT 29 U/L (17-59); BLOOD UREA NITROGEN 24 mg/dL (9-20); CALCIUM 9.1 mg/dl (8.6-10.4); GFR NON-AFRICAN AMERICAN > 60
--- NOTE | 2018-10-16 20:04 | CP.PCM.PN ---
Subjective - Date & Time of Evaluation Date of Evaluation: 10/16/18 Time of Evaluation: 15:05 - Subjective Subjective: Patient seen and evaluated Denies chest pain and dyspnea HTN and DM uncontrolled Review Of Systems Constitutional: Negative for: Fever, Chills Eyes: Negative for: Redness ENT: Negative for: Throat Pain Cardiovascular: Negative for: Chest Pain, Palpitations Respiratory: Positive for: Shortness of Breath, SOB with Excertion, Wheezing Gastrointestinal: Negative for: Nausea, Vomiting, Abdominal Pain Genitourinary: Negative for: Dysuria Musculoskeletal: Negative for: Back Pain Skin: Negative for: Rash Neurological: Negative for: Weakness, Numbness, Dizziness Psych: Negative for: Anxiety Physical Exam - Physical Exam Appears: Comfortable Skin: Warm, Dry Head: Normacephalic Eye(s): bilateral: Normal Inspection Oral Mucosa: Dry Teeth: Normal Dentition Neck: Trachea Midline, Supple Chest: Symmetrical Cardiovascular: Rhythm Regular Respiratory: Clear Gastrointestinal/Abdominal: Soft, No Tenderness, No Distention Back: Normal Inspection Extremity: Normal ROM, Pedal Edema (trace), No Deformity Extremity: Bilateral: Normal Color And Temperature, Normal ROM Pulses: Left Dorsalis Pedis: Normal, Right Dorsalis Pedis: Normal Neurological/Psych: Oriented x3 Gait: Steady Assessment and Plan - Assessment and Plan (Free Text) Assessment: Acute systolic CHF HTN controlled Paraxysmal A Fib On Eliquis 5 po bid Needs BP and DM 2 control LifeVest as out patient Objective - Vital Signs/Intake and Output Vital Signs (last 24 hours): Temp Pulse Resp BP Pulse Ox 97.8 F 83 20 156/90 H 96 10/16/18 15:00 10/16/18 16:45 10/16/18 15:00 10/16/18 15:00 10/16/18 15:00 - Medications Medications: Current Medications Apixaban (Eliquis) 5 mg PO BID [facility] [place] Last Admin: 10/16/18 17:19 Dose: 5 mg Carvedilol (Coreg) 6.25 mg PO BID [facility] [place] Last Admin: 10/16/18 17:19 Dose: 6.25 mg Furosemide (Lasix) 40 mg PO DAILY [facility] [place] Last Admin: 10/16/18 09:14 Dose: 40 mg Gabapentin (Neurontin) 100 mg PO BID [facility] Last Admin: 10/16/18 17:19 Dose: 100 mg Glipizide (Glucotrol) 10 mg PO BID [facility] Last Admin: 10/16/18 17:19 Dose: 10 mg Hydralazine HCl (Apresoline) 10 mg PO Q8 [facility] Last Admin: 10/16/18 14:20 Dose: 10 mg Insulin Glargine (Lantus) 25 unit SC Q12 [facility] [place] Last Admin: 10/16/18 09:15 Dose: 25 unit Insulin Human Regular (Novolin R) 0 unit SC ACHS [facility] [place]; Protocol Last Admin: 10/16/18 17:20 Dose: 4 units Lisinopril (Zestril) 20 mg PO DAILY [facility] [place] Last Admin: 10/16/18 09:15 Dose: 20 mg Pantoprazole Sodium (Protonix Ec Tab) 40 mg PO DAILY [facility] Last Admin: 10/16/18 09:15 Dose: 40 mg Rosuvastatin Calcium (Crestor) 10 mg PO HS [facility] Last Admin: 10/15/18 21:41 Dose: 10 mg Sitagliptin Phosphate (Januvia) 100 mg PO DAILY [facility] [place] Last Admin: 10/16/18 09:15 Dose: 100 mg - Labs Labs: 10/16/18 13:40 10/16/18 13:40 PT 12.1 SECONDS (9.7-12.2) 10/08/18 21:38 INR 1.1 10/08/18 21:38 APTT 34 SECONDS (21-34) 10/08/18 21:38
[2018-10-17] MEDS: (Novolin R) Insulin Human Regular 100 units/ml vial SC SCH ×2 (08:30→12:20)
[2018-10-17] MEDS: (Lantus) Insulin Glargine, Recombinant SC SCH (09:28)
[2018-10-17] MEDS: Pantoprazole 40 mg EC Tab PO SCH (09:30)
[2018-10-17 09:31] VITALS: RESP 20; TEMP 97.9; O2SAT 95
[2018-10-17 13:30] VITALS: BP 143/84; PULSE 81
--- NOTE | 2018-10-17 14:33 | CP.PCM.DIS ---
Provider - Provider Date of Admission: 10/08/18 22:09 Attending physician: Richy Linder MD Consults: 10/08/18 23:40 Cardiology Consult Routine Comment: Consulting Provider: Case Elizabeth Consulting Physician: Case Elizabeth Reason for Consult: dyspnea 10/10/18 09:56 Neurology Consult Routine Comment: Consulting Provider: Eusebio Carlisle Consulting Physician: Eusebio Carlisle Reason for Consult: cerebellar ataxia Time Spent in preparation of Discharge (in minutes): 45 Hospital Course - Lab Results Lab Results: Micro Results 10/13/18 08:36 Naris MRSA Culture - Final MRSA NOT DETECTED 10/08/18 22:04 Blood Blood Culture - Final NO GROWTH AFTER 5 DAYS 10/08/18 22:04 Blood Gram Stain - Final TEST NOT PERFORMED 10/08/18 21:30 Blood Blood Culture - Final NO GROWTH AFTER 5 DAYS 10/09/18 06:00 Nose MRSA Culture (Admit) - Final MRSA NOT DETECTED Most Recent Lab Values WBC 9.0 K/uL (4.8-10.8) 10/16/18 13:40 RBC 4.64 Mil/uL (4.40-5.90) 10/16/18 13:40 Hgb 14.4 g/dL (12.0-18.0) 10/16/18 13:40 Hct 43.1 % (35.0-51.0) 10/16/18 13:40 MCV 93.0 fL (80.0-94.0) 10/16/18 13:40 MCH 31.2 pg (27.0-31.0) H 10/16/18 13:40 MCHC 33.5 g/dL (33.0-37.0) 10/16/18 13:40 RDW 13.7 % (11.5-14.5) 10/16/18 13:40 Plt Count 209 K/uL (130-400) 10/16/18 13:40 MPV 10.3 fL (7.2-11.7) 10/16/18 13:40 Neut % (Auto) 62.0 % (50.0-75.0) 10/16/18 13:40 Lymph % (Auto) 26.4 % (20.0-40.0) 10/16/18 13:40 Pershing % (Auto) 9.0 % (0.0-10.0) 10/16/18 13:40 Eos % (Auto) 1.7 % (0.0-4.0) 10/16/18 13:40 Baso % (Auto) 0.9 % (0.0-2.0) 10/16/18 13:40 Neut # (Auto) 5.6 K/uL (1.8-7.0) 10/16/18 13:40 Lymph # (Auto) 2.4 K/uL (1.0-4.3) 10/16/18 13:40 Pershing # (Auto) 0.8 K/uL (0.0-0.8) 10/16/18 13:40 Eos # (Auto) 0.2 K/uL (0.0-0.7) 10/16/18 13:40 Baso # (Auto) 0.1 K/uL (0.0-0.2) 10/16/18 13:40 Neutrophils % (Manual) 91 % (50-75) H 10/09/18 06:10 Lymphocytes % (Manual) 8 % (20-40) L 10/09/18 06:10 Monocytes % (Manual) 1 % (0-10) 10/09/18 06:10 Toxic Granulation Present 10/09/18 06:10 Platelet Estimate Normal (NORMAL) 10/09/18 06:10 Large Platelets Present 10/09/18 06:10 Polychromasia Slight 10/09/18 06:10 Poikilocytosis (manual Slight 10/09/18 06:10 Anisocytosis (manual) Slight 10/09/18 06:10 Ovalocytes Slight 10/09/18 06:10 ESR 23 mm/hr (0-15) H 10/11/18 06:10 PT 12.1 SECONDS (9.7-12.2) 10/08/18 21:38 INR 1.1 10/08/18 21:38 APTT 34 SECONDS (21-34) 10/08/18 21:38 Puncture Site Rra 10/08/18 21:50 pCO2 47 mm/Hg (35-45) H 10/08/18 21:50 pO2 102 mm/Hg (80-100) H 10/08/18 21:50 HCO3 24.3 mmol/L (21-28) 10/08/18 21:50 ABG pH 7.34 (7.35-7.45) L 10/08/18 21:50 ABG Total CO2 26.8 mmol/L (22-28) 10/08/18 21:50 ABG O2 Saturation 96.8 % (95-98) 10/08/18 21:50 ABG Base Excess -0.8 mmol/L (-2.0-3.0) 10/08/18 21:50 Gucci Test Pos 10/08/18 21:50 ABG Potassium 3.8 mmol/L (3.6-5.2) 10/08/18 21:50 Sodium 136.0 mmol/l (132-148) 10/08/18 21:50 Chloride 102.0 mmol/L (98-107) 10/08/18 21:50 Glucose 284 mg/dl (75-110) H 10/08/18 21:50 Lactate 1.7 mmol/L (0.7-2.1) 10/08/18 21:50 Liter Flow 12.0 10/08/18 21:50 Sodium 136 mmol/L (132-148) 10/16/18 13:40 Potassium 4.0 mmol/L (3.6-5.2) 10/16/18 13:40 Chloride 96 mmol/L (98-107) L 10/16/18 13:40 Carbon Dioxide 31 mmol/L (22-30) H 10/16/18 13:40 Anion Gap 12 (10-20) 10/16/18 13:40 BUN 24 mg/dL (9-20) H 10/16/18 13:40 Creatinine 1.1 mg/dL (0.8-1.5) 10/16/18 13:40 Est GFR ( Amer) > 60 10/16/18 13:40 Est GFR (Non-Af Amer) > 60 10/16/18 13:40 POC Glucose (mg/dL) 424 mg/dL (65-110) H* 10/17/18 11:10 Random Glucose 281 mg/dL (75-110) H 10/16/18 13:40 Hemoglobin A1c 9.3 % (4.2-6.5) H 10/10/18 05:52 Calcium 9.1 mg/dl (8.6-10.4) 10/16/18 13:40 Phosphorus 3.7 mg/dL (2.5-4.5) 10/16/18 13:40 Magnesium 1.8 mg/dL (1.6-2.3) 10/16/18 13:40 Total Bilirubin 1.0 mg/dL (0.2-1.3) 10/16/18 13:40 Direct Bilirubin 0.5 mg/dL (0.0-0.4) H 10/10/18 05:52 AST 29 U/L (17-59) 10/16/18 13:40 ALT 46 U/L (21-72) 10/16/18 13:40 Alkaline Phosphatase 70 U/L (38-126) 10/16/18 13:40 Total Creatine Kinase 119 U/L (55-170) 10/09/18 06:10 CK-MB (Mass) 2.47 ng/mL (0.0-3.38) 10/09/18 06:10 Troponin I < 0.0120 ng/mL (0.00-0.120) 10/09/18 06:10 C-React Prot High Sens 5.06 mg/L (1.00-3.00) H 10/11/18 06:10 NT-Pro-B Natriuret Pep 413 pg/mL (0-900) 10/08/18 21:38 Total Protein 7.0 g/dL (6.3-8.3) 10/16/18 13:40 Albumin 4.1 g/dL (3.5-5.0) 10/16/18 13:40 Globulin 2.9 gm/dL (2.2-3.9) 10/16/18 13:40 Albumin/Globulin Ratio 1.5 (1.0-2.1) 10/16/18 13:40 Vitamin B12 305 pg/mL (239-931) 10/11/18 06:10 Procalcitonin 0.05 NG/ML (0.19-0.49) L 10/09/18 08:00 Free T4 1.30 ng/dL (0.78-2.19) 10/11/18 06:10 TSH 3rd Generation 2.10 mIU/L (0.46-4.68) 10/11/18 06:10 Arterial Blood Potassium 3.8 mmol/L (3.6-5.2) 10/08/18 21:50 Urine Color Straw (YELLOW) 10/08/18 23:10 Urine Clarity Clear (Clear) 10/08/18 23:10 Urine pH 5.0 (5.0-8.0) 10/08/18 23:10 Ur Specific Drexel 1.010 (1.003-1.030) 10/08/18 23:10 Urine Protein 2+ mg/dL (NEGATIVE) H 10/08/18 23:10 Urine Glucose (UA) 2+ mg/dL (Normal) H 10/08/18 23:10 Urine Ketones Negative mg/dL (NEGATIVE) 10/08/18 23:10 Urine Blood Negative (NEGATIVE) 10/08/18 23:10 Urine Nitrate Negative (NEGATIVE) 10/08/18 23:10 Urine Bilirubin Negative (NEGATIVE) 10/08/18 23:10 Urine Urobilinogen Normal mg/dL (0.2-1.0) 10/08/18 23:10 Ur Leukocyte Esterase Neg Radha/uL (Negative) 10/08/18 23:10 Urine WBC (Auto) < 1 /hpf (0-5) 10/08/18 23:10 Serum Immunofixation Not detected (Not Detected) 10/10/18 07:19 - Hospital Course Hospital Course: Chief complaint: Shortness of breath. History present illness: 67-year-old male with history diabetes, hypertension, diabetes is poorly controlled, came to the emergency room this morning with shortness of breath. Patient was sent home. He again started having shortness of breath, unable to lie flat, he came to the emergency because of the worsening S OB. In the emergency room patient was evaluated. Was placed on BiPAP because of the worsening shortness of breath. There is also having some chest tightness. He denies any cough. No fever or chills noted. Patient supposed to be seeing Dr. Kitchen in the office next week. He has no stomach symptoms, he denies any chest pain, but his severe exertional dyspnea noted. In the past patient had right foot ulcer, injury and had an infection in the past. His blood sugar is also not controlled well. Patient is being seen by Dr. Kitchen, also diabetic foot ulcer Past medical history: Diabetes, hypertension, hypercholesteremia, CAD, Allergy no known drug allergy. Personal history nonsmoker, nonalcoholic patient is currently working full-time Review of systems Currently patient is having no headache. He denies any visual symptoms. He has worsening shortness of breath, got worse in the last 3 days. Exertional dyspnea noted. Even at rest today he could not breathe. He denies any GI symptoms. On and off leg swelling noted On examination: HEENT PERRLA, neck supple no JVD noted No thyromegaly was noted and no cervical adenopathy noted Chest bilateral wheezing minimally noted CVS regular heart sound, no murmur Abdomen soft and no organomegaly Peripheral pulses is normal. 1+ pedal edema bilaterally noted The proBNP level is normal Chest x-ray showing evidence of pulmonary Edema pattern noted EKG showing evidence of ischemic pattern in the lateral limb leads. Troponin level is negative Assessment and recommendation: 67-year-old male with history diabetes, hypertension, hypercholesteremia, Also history of diabetes, poorly controlled, came to the emergency room with worsening shortness of breath. Flash pulmonary edema cannot be ruled out. Patient also has had some changes in the EKG. Considering this as well as elevated blood pressure I advised the patient to get admitted to the hospital. Patient will need BiPAP support. Nitroglycerin drip. Aspirin. Beta-nubia. Cardiology evaluation. DVT and GI prophylaxis We will admit the patient to the ICU to close monitor. I discussed with the patient. We will follow the patient Patient initially admitted to the hospital with the diagnosis of acute decompens ated heart failure. Most likely systolic heart failure. Patient was then admitted to the intensive care unit. BiPAP placed. Nitroglycerin drip started. Cardiology evaluation was called in. Patient blood pressure was controlled slowly. Including the blood sugar. He underwent angiogram, showing evidence of nonobstructive coronary disease. But ejection fraction is 25-30%. Most likely patient has a possibility of hypertensive heart disease with heart failure. Medical management recommended by the manager apple. Patient also developed intermittent atrial flutter fibrillation. He was placed on anticoagulation. Clinically he is better. Patient also had a history of dementia. Episode of forgetfulness. Called neurology. Patient had cystic lesions in the ventricular of the brain noted. Clinically otherwise stable. He will be discharged home today. I educated the patient regarding the heart failure and hypertension and diabetes. He understands. He will be followed up with the manager apple. Also in my our office. Now Medications reviewed Reconciliation was done. He will continue the current medications Assessment final diagnosis: Poorly controlled. Hypertension also poorly controlled. Noncompliance. Hypercholesterolemia. Admitted with the decompensated heart failure systolic. Hypertensive heart disease associate with heart failure. Patient will be discharged home. He will follow-up in the office. Medications reviewed, sent to the pharmacy Patient is a 67-year-old male with a history of diabetes, Discharge Plan - Discharge Medications Prescriptions: hydrALAZINE [Apresoline] 10 mg PO Q8 30 Days #90 tab Aspirin 81 mg PO DAILY 30 Days #30 tab Carvedilol [Coreg] 6.25 mg PO BID 30 Days #60 tab Apixaban [Eliquis] 5 mg PO BID 30 Days #60 tab GlipiZIDE [Glucotrol] 10 mg PO BID 30 Days #60 tab SITagliptin [Januvia] 100 mg PO DAILY 30 Days #30 tab Furosemide [Lasix] 40 mg PO DAILY 30 Days #30 tab Lisinopril/Hydrochlorothiazide [Lisinopril-Hctz 20-12.5 mg Tab] 1 each PO DAILY 30 Days #30 tablet Gabapentin [Neurontin] 100 mg PO BID 30 Days #60 capsule Pantoprazole [Protonix EC Tab] 40 mg PO DAILY 30 Days #30 ect - Follow Up Plan Condition: GUARDED Disposition: HOME/ ROUTINE Instructions: Heart Healthy Diet, Diabetes Exchange Diet, Acute Bronchitis, Adult (DC), Heart Failure, Adult (DC), Diabetes Diet , Respiratory Distress Syndrome, Adult (DC), Exacerbation of COPD (DC), Apixaban Additional Instructions: Follow up in Dr Linder's office in one week Referrals: Richy Linder MD [Staff Provider] -
== END 2018-10-17 15:29 | disposition home or self-care (01) | DRG 287 ==
LOC: C.ER 21:10 → C.9E 22:09 → C.9I 10-09 01:01 → C.5S 10-13 09:00
PROVIDERS: ADMIT Internal Medicine; ATTEND Internal Medicine
PROC: B2111ZZ Fluoroscopy of Multiple Coronary Arteries using Low Osmolar Contrast (ICD-10-PCS; 2018-10-08)
PROC: 4A023N7 Measurement of Cardiac Sampling and Pressure, Left Heart, Percutaneous Approach (ICD-10-PCS; principal; 2018-10-15)
PROC: 5A09457 Assistance with Respiratory Ventilation, 24-96 Consecutive Hours, Continuous Positive Airway Pressure (ICD-10-PCS; 2018-10-15)
DX: I11.0 Hypertensive heart disease with heart failure (principal); J44.1 Chronic obstructive pulmonary disease with (acute) exacerbation; I48.92 Unspecified atrial flutter; I16.0 Hypertensive urgency; I50.43 Acute on chronic combined systolic (congestive) and diastolic (congestive) heart failure; I25.10 Atherosclerotic heart disease of native coronary artery without angina pectoris; I48.91 Unspecified atrial fibrillation; E11.621 Type 2 diabetes mellitus with foot ulcer; E78.00 Pure hypercholesterolemia, unspecified; E78.5 Hyperlipidemia, unspecified; Z79.84 Long term (current) use of oral hypoglycemic drugs; G62.9 Polyneuropathy, unspecified; I25.5 Ischemic cardiomyopathy; I42.0 Dilated cardiomyopathy; I43 Cardiomyopathy in diseases classified elsewhere; L97.519 Non-pressure chronic ulcer of other part of right foot with unspecified severity; E11.65 Type 2 diabetes mellitus with hyperglycemia; R06.03 Acute respiratory distress; R09.02 Hypoxemia; Z79.01 Long term (current) use of anticoagulants; Z79.4 Long term (current) use of insulin; Z86.73 Personal history of transient ischemic attack (TIA), and cerebral infarction without residual deficits; E11.42 Type 2 diabetes mellitus with diabetic polyneuropathy

== ENCOUNTER 2018-11-11 08:03 | Outpatient (CLI) | payer MEDICARE | END 2018-11-11 08:04 | disposition home or self-care (01) | LOC: C.LAB 08:03 | DX: E11.9 Type 2 diabetes mellitus without complications (principal); I10 Essential (primary) hypertension ==